=== PATIENT | female | born 1945 | race Caucasian/White ===

== ENCOUNTER 2019-09-13 15:30 | Outpatient (CLI) | payer MEDICARE, SELFPAY ==
--- NOTE | ~2019-09-13 | MM_ITS ---
EXAMINATION: MM screening gay BI w adriana HISTORY: Screening mammogram TECHNIQUE: Craniocaudal and mediolateral oblique 3-D tomosynthesis images were obtained and synthetic 2-D images were generated. CAD analysis was submitted and interpreted. COMPARISON: 05/16/2018 bilateral digital screening mammogram 05/29/2018 diagnostic right digital mammogram 05/09/2017 bilateral digital screening mammogram 05/05/2016 bilateral digital screening mammogram BREAST PARENCHYMAL COMPOSITION: The breasts are heterogeneously dense, which may obscure small masses . FINDINGS: There is no evidence of suspicious mass, calcification, or architectural distortion to sugg est malignancy in either breast. There has been no suspicious interval change. IMPRESSION: 1. No mammographic evidence of malignancy. 2. Recommend routine screening mammography in one year. BI-RADS Category 1: Negative Reviewed, dictated and finalized at location A.
== END 2019-09-13 15:31 | disposition home or self-care (01) ==
PROVIDERS: PCP Physician Assistant; Visit Provider Obstetrics & Gynecology
DX: Z12.31 Encounter for screening mammogram for malignant neoplasm of breast (principal)
CPT/HCPCS: 77063; 77067

== ENCOUNTER 2019-10-03 07:21 | Outpatient (CLI) | payer MEDICARE, SELFPAY ==
[2019-10-03 08:08] LABS: Basophils Percent Auto 0.7 % (0.2-1.2); Eosinophils Absolute Auto 0.2 K/mm3 (0-0.3); Eosinophils Percent Auto 4.8 % (0-4.4); Hematocrit 38.7 % (37.0-47.0); Hemoglobin 12.6 g/dL (12.0-15.0); Immature Granulocyte Absolute 0.04 K/mm3 (0.00-0.031); Immature Granulocyte Percent A 0.9 % (0-0.5); Lymphocytes Absolute Auto 1.05 K/mm3 (0.9-3.2); Mean Corpuscular HGB Conc 32.6 g/dl (32-36); Mean Corpuscular Hemoglobin 30.7 pg (26-34); Mean Corpuscular Volume 94.4 fl (80-100); Mean Platelet Volume 10.8 fl (7.4-10.4); Monocytes Absolute Auto 0.6 K/mm3 (0.1-0.6); Neutrophils Absolute Auto 2.7 K/mm3 (1.3-6.7); Neutrophils Percent Auto 58.6 % (45.5-73.1); Platelet Count Result 187 k/mm3 (150-375); Red Cell Distribution Width 13.4 % (11.5-14.5); White Blood Count 4.6 K/mm3 (4.5-10.0)
[2019-10-03 08:12] LABS: Add Urine Microscopic? YES; Appearance Urine Clear (Clear); Bilirubin Urine Negative (Negative); Blood Urine Negative (Negative); Color Urine Yellow (Yellow); Glucose Urine UA Negative (Negative); Ketones Urine Negative (Negative); Leukocyte Esterase Ur Trace LEU/UL (Negative); Mucus Urine Rare /lpf; Nitrate Urine Negative (Negative); Protein Urine Negative (Negative); Specific Grav Ur 1.017 (1.001-1.035); Urobilinogen Urine Negative mg/dL (<2.0)
[2019-10-03 08:23] LABS: Alanine Aminotransferase 36 U/L (4-35); Albumin Level 4.2 g/dL (3.5-5.1); Alkaline Phosphatase 120 U/L (38-126); Aspartate Amino Transferase 45 U/L (14-36); Bilirubin,Total 0.3 mg/dL (0.2-1.3); Blood Urea Nitrogen 32 mg/dL (7-17); Calcium 8.8 mg/dL (8.4-10.2); Carbon Dioxide 30 mmol/L (22-30); Chloride 104 mmol/L (98-107); Cholesterol 148 mg/dL (0-200); Estimated Glomerular Filt Rate 48; Glucose 88 mg/dL (65-105); HDL Direct 43 mg/dL; Potassium 4.2 mmol/L (3.4-5.0); Sodium 141 mmol/L (137-145); Triglycerides 103 mg/dL (<150)
[2019-10-03 08:33] LABS: LDL Cholesterol Direct 74 mg/dL
[2019-10-03 08:58] LABS: Free T4 Free Thyroxine 0.99 ng/mL (0.78-2.19)
== END 2019-10-03 07:22 | disposition home or self-care (01) ==
PROVIDERS: PCP Physician Assistant; Visit Provider Physician Assistant
DX: E03.9 Hypothyroidism, unspecified (principal); Z79.899 Other long term (current) drug therapy; Z13.220 Encounter for screening for lipoid disorders
CPT/HCPCS: 36415; 80048; 80061; 80076; 81001; 84439; 84443; 85025

== ENCOUNTER 2020-04-16 06:58 | Outpatient (CLI) | payer MEDICARE, SELFPAY ==
[2020-04-16 08:02] LABS: Anion Gap 6 mmol/L (8-16); Blood Urea Nitrogen 24 mg/dL (7-17); Calcium 9.2 mg/dL (8.4-10.2); Carbon Dioxide 31 mmol/L (22-30); Chloride 102 mmol/L (98-107); Estimated Glomerular Filt Rate 48; Glucose 90 mg/dL (65-105); Potassium 4.2 mmol/L (3.4-5.0); Sodium 139 mmol/L (137-145)
[2020-04-16 08:41] LABS: Free T4 Free Thyroxine 1.36 ng/mL (0.78-2.19)
[2020-04-16 08:55] LABS: Thyroid Stimulating Hormone Reflex 0.674 uIU/mL (0.465-4.68)
== END 2020-04-16 06:59 | disposition home or self-care (01) ==
LOC: ANHLAB 07:01
PROVIDERS: PCP Physician Assistant; Visit Provider Physician Assistant
DX: E03.9 Hypothyroidism, unspecified (principal); N18.9 Chronic kidney disease, unspecified
CPT/HCPCS: 36415; 80048; 84439; 84443

== ENCOUNTER 2020-09-17 12:27 | Outpatient (CLI) | payer MEDICARE, SELFPAY ==
--- NOTE | ~2020-09-17 | MM_ITS ---
EXAMINATION: MM screening gay BI w adriana HISTORY: Screening mammogram TECHNIQUE: Craniocaudal and mediolateral oblique 3-D tomosynthesis images were obtained and synthetic 2-D images were generated. CAD analysis was submitted and interpreted. COMPARISON: 09/2019 bilateral digital screening mammogram 05/29/2018 diagnostic right digital mammogram 05/16/2018, 05/09/2017, 05/05/2016 bilateral digital screening mammogram examinations BREAST PARENCHYMAL COMPOSITION: The breasts are heterogeneously dense, which may obscure small masses . FINDINGS: There is no evidence of suspicious mass, calcification, or architectural distortion to sugg est malignancy in either breast. There has been no suspicious interval change. IMPRESSION: 1. No mammographic evidence of malignancy. 2. Recommend routine screening mammography in one year. BI-RADS Category 1: Negative Reviewed, dictated and finalized at location A.
== END 2020-09-17 12:28 | disposition home or self-care (01) ==
LOC: ANHIMG 12:32
PROVIDERS: PCP Physician Assistant; Visit Provider Obstetrics & Gynecology
DX: Z12.31 Encounter for screening mammogram for malignant neoplasm of breast (principal)
CPT/HCPCS: 77063; 77067

== ENCOUNTER 2020-10-14 06:46 | Outpatient (CLI) | payer MEDICARE, SELFPAY ==
[2020-10-14 07:40] LABS: Basophils Absolute Auto 0.1 K/mm3 (0.0-0.1); Basophils Percent Auto 0.9 % (0.2-1.2); Eosinophils Absolute Auto 0.2 K/mm3 (0-0.3); Eosinophils Percent Auto 2.9 % (0-4.4); Hematocrit 39.2 % (37.0-47.0); Hemoglobin 12.3 g/dL (12.0-15.0); Immature Granulocyte Absolute 0.04 K/mm3 (0.00-0.031); Immature Granulocyte Percent A 0.7 % (0-0.5); Lymphocytes Absolute Auto 1.67 K/mm3 (0.9-3.2); Lymphocytes Percent Auto 29.8 % (18.3-44.2); Mean Corpuscular HGB Conc 31.4 g/dl (32-36); Mean Corpuscular Hemoglobin 29.9 pg (26-34); Mean Corpuscular Volume 95.4 fl (80-100); Mean Platelet Volume 10.6 fl (7.4-10.4); Monocytes Absolute Auto 0.7 K/mm3 (0.1-0.6); Neutrophils Percent Auto 52.7 % (45.5-73.1); Platelet Count Result 186 k/mm3 (150-375); Red Blood Count 4.11 M/mm3 (4.2-5.4); Red Cell Distribution Width 13.5 % (11.5-14.5); White Blood Count 5.6 K/mm3 (4.5-10.0)
[2020-10-14 07:49] LABS: Add Urine Microscopic? YES; Appearance Urine Clear (Clear); Bilirubin Urine Negative (Negative); Blood Urine Negative (Negative); Color Urine Yellow (Yellow); Glucose Urine UA Negative (Negative); Ketones Urine Negative (Negative); Leukocyte Esterase Ur 1+ LEU/UL (NEGATIVE); Mucus Urine Rare /lpf; Nitrate Urine Negative (Negative); Protein Urine Negative (Negative); RBC Urine 0-2 /hpf (0-2); Specific Grav Ur 1.013 (1.001-1.035); Urobilinogen Urine Negative mg/dL (<2.0); WBC Urine 0-3 /hpf (0-3)
[2020-10-14 07:54] LABS: Alanine Aminotransferase 48 U/L (4-35); Albumin Level 4.1 g/dL (3.5-5.1); Alkaline Phosphatase 142 U/L (38-126); Anion Gap 9 mmol/L (8-16); Aspartate Amino Transferase 54 U/L (14-36); Bilirubin,Total 0.4 mg/dL (0.2-1.3); Blood Urea Nitrogen 28 mg/dL (7-17); Calcium 9.8 mg/dL (8.4-10.2); Carbon Dioxide 28 mmol/L (22-30); Chloride 102 mmol/L (98-107); Cholesterol 143 mg/dL (0-200); Estimated Glomerular Filt Rate 48; Glucose 84 mg/dL (65-105); HDL Direct 44 mg/dL; Potassium 4.3 mmol/L (3.4-5.0); Sodium 139 mmol/L (137-145); Triglycerides 96 mg/dL (<150)
[2020-10-14 08:04] LABS: LDL Cholesterol Direct 60 mg/dL
[2020-10-14 08:43] LABS: Free T4 Free Thyroxine 1.14 ng/mL (0.78-2.19)
== END 2020-10-14 06:47 | disposition home or self-care (01) ==
PROVIDERS: PCP Physician Assistant; Visit Provider Physician Assistant
DX: E03.9 Hypothyroidism, unspecified (principal); N18.9 Chronic kidney disease, unspecified; Z79.899 Other long term (current) drug therapy; Z13.6 Encounter for screening for cardiovascular disorders
CPT/HCPCS: 36415; 80048; 80061; 80076; 81001; 84439; 84443; 85025

== ENCOUNTER → 2020-10-29 07:57 | Outpatient (CLI) | payer MEDICARE, SELFPAY ==
--- NOTE | ~2020-10-29 | XR_ITS ---
XR shoulder RT min 2V DATE: 10/29/2020 08:29 INDICATION: Right shoulder pain TECHNIQUE: 4 views COMPARISON: None FINDINGS: Diffuse osteopenia. There is osteoarthritic change including joint space narrowing and prominent spurring at the glenohum eral joint. Synovial osteochondromatosis. No fracture, dislocation, periosteal reaction or bone destruction. IMPRESSION: Osteopenia Prominent osteoarthritic change at the right glenohumeral joint Synovial osteochondromatosis Reviewed, dictated and finalized at location A.
--- NOTE | ~2020-10-29 | US_ITS ---
EXAMINATION: US right upper quadrant DATE: 10/29/2020 08:29 INDICATION: Elevated liver function tests TECHNIQUE: Multiple grayscale and Doppler ultrasound images of the abdomen were obtained. COMPARISON: None available FINDINGS: The head, body, and tail of the pancreas are normal. The liver is normal with normal echoge nicity and echotexture. No surface nodularity. Normal hepatopetal flow in the main portal vein. The g allbladder is normal with no abnormal wall thickening, pericholecystic fluid or stones. The normal co mmon bile duct measures 3 mm. There was no sonographic Ferrera sign. IMPRESSION: 1. Normal sonographic study of the gallbladder. Reviewed, dictated and finalized at location B.
== END ==
PROVIDERS: PCP Physician Assistant; Visit Provider Physician Assistant
DX: R94.5 Abnormal results of liver function studies (principal); M85.811 Other specified disorders of bone density and structure, right shoulder; M19.011 Primary osteoarthritis, right shoulder
CPT/HCPCS: 73030; 76705

== ENCOUNTER 2021-05-01 06:59 | Outpatient (CLI) | payer MEDICARE, SELFPAY ==
[2021-05-01 07:56] LABS: Basophils Percent Auto 0.8 % (0.2-1.2); Eosinophils Absolute Auto 0.2 K/mm3 (0-0.3); Eosinophils Percent Auto 3.6 % (0-4.4); Hematocrit 39.5 % (37.0-47.0); Hemoglobin 12.9 g/dL (12.0-15.0); Immature Granulocyte Absolute 0.05 K/mm3 (0.00-0.031); Immature Granulocyte Percent A 0.9 % (0-0.5); Lymphocytes Absolute Auto 1.45 K/mm3 (0.9-3.2); Lymphocytes Percent Auto 27.5 % (18.3-44.2); Mean Corpuscular HGB Conc 32.7 g/dl (32-36); Mean Corpuscular Hemoglobin 31.2 pg (26-34); Mean Corpuscular Volume 95.4 fl (80-100); Mean Platelet Volume 10.6 fl (7.4-10.4); Monocytes Absolute Auto 0.6 K/mm3 (0.1-0.6); Monocytes Percent Auto 11.6 % (2.6-8.5); Neutrophils Absolute Auto 2.9 K/mm3 (1.3-6.7); Neutrophils Percent Auto 55.6 % (45.5-73.1); Platelet Count Result 199 k/mm3 (150-375); Red Blood Count 4.14 M/mm3 (4.2-5.4); Red Cell Distribution Width 13.7 % (11.5-14.5); White Blood Count 5.3 K/mm3 (4.5-10.0)
[2021-05-01 08:08] LABS: Alanine Aminotransferase 51 U/L (4-35); Albumin Level 4.4 g/dL (3.5-5.1); Alkaline Phosphatase 158 U/L (38-126); Anion Gap 10 mmol/L (8-16); Aspartate Amino Transferase 60 U/L (14-36); Bilirubin,Total 0.4 mg/dL (0.2-1.3); Blood Urea Nitrogen 28 mg/dL (7-17); Calcium 9.4 mg/dL (8.4-10.2); Carbon Dioxide 26 mmol/L (22-30); Chloride 105 mmol/L (98-107); Cholesterol 149 mg/dL (0-200); Estimated Glomerular Filt Rate 48; Glucose 95 mg/dL (65-110); HDL Direct 52 mg/dL; Potassium 4.3 mmol/L (3.4-5.0); Sodium 141 mmol/L (137-145); Triglycerides 97 mg/dL (<150)
[2021-05-01 08:18] LABS: LDL Cholesterol Direct 71 mg/dL
[2021-05-01 09:01] LABS: Free T4 Free Thyroxine 0.93 ng/mL (0.78-2.19)
== END 2021-05-01 07:00 | disposition home or self-care (01) ==
LOC: ANHLAB 07:02
PROVIDERS: PCP Physician Assistant; Visit Provider Physician Assistant
DX: E03.9 Hypothyroidism, unspecified (principal); Z79.899 Other long term (current) drug therapy; E78.5 Hyperlipidemia, unspecified
CPT/HCPCS: 36415; 80053; 80061; 82248; 84439; 84443; 85025

== ENCOUNTER 2021-05-18 15:36 | Outpatient (CLI) | payer MEDICARE, SELFPAY ==
--- NOTE | ~2021-05-18 | US_ITS ---
EXAMINATION: US carotid duplex BI EXAM DATE: 05/18/2021 16:36 INDICATION: Other Specified Symptoms And Signs Involving Circ And Resp . TECHNIQUE: Grayscale, color and pulsed Doppler images of the cervical carotid arteries were obtained . The degree of vessel stenosis is placed in one of the following categories: normal, <50% stenosis, 50-69% stenosis, >=70% stenosis but less than near-occlusion, near-occlusion, or occlusion. Note that percent stenosis relative to normal distal artery lumen diameter is indirectly measured from velocit y measurements as described by Evan, et al. Radiology 2003; 229:340-346. There is no prior study fo r comparison. FINDINGS: RIGHT SIDE: Right common carotid artery peak systolic velocity (PSV in cm/s): 94 Right bulb/internal carotid artery peak systolic velocity (PSV in cm/s): 78 Right internal carotid artery end diastolic velocity (EDV in cm/s): 23 Right ICA/CCA peak systolic ratio: 0.8 Right external carotid artery peak systolic velocity (PSV in cm/s): 87 Right vertebral artery antegrade flow: yes There is no focal plaque identified. LEFT SIDE: Left common carotid artery peak systolic velocity (PSV in cm/s): 83 Left bulb/internal carotid artery peak systolic velocity (PSV in cm/s): 138 Left internal carotid artery end diastolic velocity (EDV in cm/s): 9 Left ICA/CCA peak systolic ratio: 1.7 Left external carotid artery peak systolic velocity (PSV in cm/s): 83 Left vertebral artery antegrade flow: yes There is mild carotid bulb plaque. Velocity and Doppler waveforms in the common and internal carotid arteries is normal. IMPRESSION: 1. Normal right internal carotid artery. 2. Less than 50 percent stenosis in the left internal carotid artery. Reviewed, dictated and finalized at location B. ADOPTION COORDINATOR
== END 2021-05-18 15:37 | disposition home or self-care (01) ==
LOC: ANHIMG 15:43
PROVIDERS: PCP Physician Assistant; Visit Provider Physician Assistant
DX: R09.89 Other specified symptoms and signs involving the circulatory and respiratory systems (principal); I65.22 Occlusion and stenosis of left carotid artery
CPT/HCPCS: 93880

== ENCOUNTER 2021-09-16 11:18 | Outpatient (CLI) | payer MEDICARE, SELFPAY ==
--- NOTE | ~2021-09-16 | XR_ITS ---
XR chest 2V 09/16/2021 11:40 Indication: Congestion and cough Procedure: 2 view chest Comparison: 10/27/2009 Findings: There are subtle right perihilar infiltrates. Heart size is normal. There is dextroscoliosi s of the thoracic spine. Left lung clear. No pleural effusion or pneumothorax. No acute osseous abnor mality. Impression: 1: Subtle right perihilar infiltrates may represent atelectasis or developing pneumonia. Reviewed, dictated and finalized at location B. Impression: 1: Subtle right perihilar infiltrates may represent atelectasis or developing p neumonia.
== END 2021-09-16 11:19 | disposition home or self-care (01) ==
LOC: ANHIMG 11:25
PROVIDERS: PCP Physician Assistant; Visit Provider Physician Assistant
DX: R05.1 Acute cough (principal); R91.8 Other nonspecific abnormal finding of lung field
CPT/HCPCS: 71046

== ENCOUNTER 2021-09-23 12:15 | Outpatient (CLI) | payer MEDICARE, SELFPAY ==
--- NOTE | ~2021-09-23 | MM_ITS ---
EXAMINATION: MM screening gay BI w adriana HISTORY: Screening TECHNIQUE: Craniocaudal and mediolateral oblique 3-D tomosynthesis images were obtained and synthetic 2-D images were generated. CAD analysis was submitted and interpreted. COMPARISON: Comparison to multiple prior studies sequentially, with oldest reviewed study dated 05/05. BREAST PARENCHYMAL COMPOSITION: The breasts are heterogeneously dense, which may obscure small masses . FINDINGS: There is no evidence of suspicious mass, calcification, or architectural distortion to sugg est malignancy in either breast. There has been no suspicious interval change. IMPRESSION: 1. No mammographic evidence of malignancy. 2. Recommend routine screening mammography in one year. BI-RADS Category 1: Negative Reviewed, dictated and finalized at location D.
== END 2021-09-23 12:16 | disposition home or self-care (01) ==
LOC: ANHIMG 12:18
PROVIDERS: PCP Physician Assistant; Visit Provider Obstetrics & Gynecology
DX: Z12.31 Encounter for screening mammogram for malignant neoplasm of breast (principal)
CPT/HCPCS: 77063; 77067

== ENCOUNTER 2021-10-30 06:51 | Outpatient (CLI) | payer MEDICARE, SELFPAY ==
[2021-10-30 07:32] LABS: Basophils Absolute Auto 0.1 K/mm3 (0.0-0.1); Basophils Percent Auto 0.6 % (0.2-1.2); Eosinophils Absolute Auto 0.3 K/mm3 (0-0.3); Eosinophils Percent Auto 3.9 % (0-4.4); Hematocrit 40.4 % (37.0-47.0); Hemoglobin 12.7 g/dL (12.0-15.0); Immature Granulocyte Absolute 0.06 K/mm3 (0.00-0.031); Immature Granulocyte Percent A 0.8 % (0-0.5); Lymphocytes Absolute Auto 1.12 K/mm3 (0.9-3.2); Lymphocytes Percent Auto 14.2 % (18.3-44.2); Mean Corpuscular HGB Conc 31.4 g/dl (32-36); Mean Corpuscular Hemoglobin 30.6 pg (26-34); Mean Corpuscular Volume 97.3 fl (80-100); Mean Platelet Volume 10.7 fl (7.4-10.4); Monocytes Absolute Auto 0.9 K/mm3 (0.1-0.6); Monocytes Percent Auto 11.2 % (2.6-8.5); Neutrophils Absolute Auto 5.5 K/mm3 (1.3-6.7); Neutrophils Percent Auto 69.3 % (45.5-73.1); Platelet Count Result 230 k/mm3 (150-375); Red Blood Count 4.15 M/mm3 (4.2-5.4); Red Cell Distribution Width 13.6 % (11.5-14.5); White Blood Count 7.9 K/mm3 (4.5-10.0)
[2021-10-30 07:39] LABS: Alanine Aminotransferase 30 U/L (6-35); Albumin Level 4.1 g/dL (3.5-5.1); Alkaline Phosphatase 180 U/L (38-126); Anion Gap 5 mmol/L (8-16); Aspartate Amino Transferase 41 U/L (14-36); Bilirubin,Total 0.5 mg/dL (0.2-1.3); Blood Urea Nitrogen 23 mg/dL (7-17); Calcium 8.9 mg/dL (8.4-10.2); Carbon Dioxide 29 mmol/L (22-30); Chloride 104 mmol/L (98-107); Cholesterol 121 mg/dL (0-200); Estimated Glomerular Filt Rate 48; Glucose 89 mg/dL (65-110); HDL Direct 36 mg/dL; Potassium 4.2 mmol/L (3.4-5.0); Sodium 138 mmol/L (137-145); Triglycerides 107 mg/dL (<150)
[2021-10-30 07:50] LABS: LDL Cholesterol Direct 50 mg/dL
[2021-10-30 08:32] LABS: Free T4 Free Thyroxine 1.14 ng/mL (0.78-2.19)
[2021-10-30 15:18] LABS: Appearance Urine Clear (Clear); Bilirubin Urine Negative (Negative); Blood Urine Negative (Negative); Color Urine Yellow (Yellow); Glucose Urine UA Negative (Negative); Ketones Urine Negative (Negative); Leukocyte Esterase Ur Negative LEU/UL (Negative); Nitrate Urine Negative (Negative); Protein Urine Negative (Negative); Specific Grav Ur <= 1.005 (1.001-1.035); Urobilinogen Urine 0.2 mg/dL (<2.0); pH Urine 5.5 (5.0-9.0)
[2021-10-30 15:22] LABS: Add Urine Microscopic? YES; Bacteria Urine Trace /hpf; RBC Urine 0-2 /hpf (0-2); WBC Urine 0-3 /hpf
== END 2021-10-30 06:52 | disposition home or self-care (01) ==
LOC: ANHLAB 06:57
PROVIDERS: PCP Physician Assistant; Visit Provider Physician Assistant
DX: E03.9 Hypothyroidism, unspecified (principal); E78.5 Hyperlipidemia, unspecified; R94.5 Abnormal results of liver function studies; Z79.899 Other long term (current) drug therapy
CPT/HCPCS: 36415; 80048; 80061; 80076; 81001; 84439; 84443; 85025

== ENCOUNTER 2021-11-19 12:38 | Outpatient (CLI) | payer MEDICARE, SELFPAY ==
--- NOTE | ~2021-11-19 | CT_ITS ---
EXAMINATION: CT diagnostic chest w con DATE: 11/19/2021 13:28 INDICATION: Chronic cough. Shortness of breath. TECHNIQUE: Computed tomography (CT) of the chest was performed with 75 cc Omnipaque 350 intravenous c ontrast. The dose-length product was 121.28 mGy-cm. Automated exposure control and iterative reconstr uction technique were employed. COMPARISON: Chest dated 09/16/2021 FINDINGS: There are multiple mediastinal lymph nodes which are not increased in size, likely reactive . Heart size normal. No significant pleural or pericardial effusion. There is atherosclerosis of the aorta without evidence for aneurysm or dissection. Upper abdomen is unremarkable. There is peripheral interstitial changes with interlobular septal thickening, more so on the right, possibly chronic int erstitial lung disease. No endobronchial lesions. Mildly elevated right diaphragm. Decreased right stevenson ng volume. No suspicious pulmonary nodules or masses. IMPRESSION: 1. Mild chronic peripheral interstitial lung disease, suspicious for chronic interstitial fibrosis. 2: Mediastinal lymph nodes which are not increased in size, although increased in number, likely ashok ctive. Reviewed, dictated and finalized at location A. IMPRESSION: 1. Mild chronic peripheral interstitial lung disease, suspicious for chronic in terstitial fibrosis. 2: Mediastinal lymph nodes which are not increased in size, although increased in number, likely reactive.
--- NOTE | ~2021-11-19 | MR_ITS ---
EXAMINATION: MR brain/brain stem wo/w con DATE: 11/19/2021 13:59 INDICATION: Headache. TECHNIQUE: Magnetic resonance imaging (MRI) of the brain and brainstem was performed without and with 10 mL MultiHance intravenous contrast. COMPARISON: Brain MRI 04/16/2015 FINDINGS: There is no intracranial hemorrhage, acute infarction, or abnormal intracranial mass lesion . There are scattered areas of nonspecific increased T2-weighted signal intensity in the cerebral whi te matter and daniela. The ventricles are normal in size. The paranasal sinuses are clear. There are lik bindu changes of ocular lens replacement surgeries. The mastoid air cells are normal. IMPRESSION: 1. Mild nonspecific cerebral white matter disease and pontine disease, which likely represents chroni c small vessel ischemic disease. Reviewed, dictated and finalized at location A. IMPRESSION: 1. Mild nonspecific cerebral white matter disease and pontine disease, which zach hendricks represents chronic small vessel ischemic disease.
== END 2021-11-19 12:39 | disposition home or self-care (01) ==
PROVIDERS: PCP Physician Assistant; Visit Provider Physician Assistant
DX: R05.3 Chronic cough (principal); R00.2 Palpitations; R51.9 Headache, unspecified; R93.0 Abnormal findings on diagnostic imaging of skull and head, not elsewhere classified; J84.9 Interstitial pulmonary disease, unspecified
CPT/HCPCS: 70553; 71260; A9577; Q9967

== ENCOUNTER 2021-11-21 12:30 | Outpatient (CLI) | payer MEDICARE, SELFPAY ==
--- NOTE | 2021-11-21 | ECHO_ITS ---
Patient Info Name: Mercedes Morfin Age: 76 years : 1945 Gender: Female Ht: 63 in Wt: 122 lbs BSA: 1.57 m2 HR: 70 bpm BP: 129 / 56 mmHg Heart Rhythm: Sinus Rhythm Technical Quality: Good Exam Date: 11/21/2021 1:11 PM Exam Location: [facility] Patient Status: Outpatient Admit Date: 11/21/2021 Staff Ordering Physician: SusanTania PA-C Custom Shop Worker: Macey Saab RDCS Attending Provider: RaulTania PA-C Exam Type: CA echo doppler color flow Study Info Indications - palpitations Complete two-dimensional, color flow and Doppler transthoracic echocardiogram is performed. Summary 1. Complete two-dimensional, color flow and Doppler transthoracic echocardiogram is performed. 2. Left ventricular chamber dimension is normal. 3. Left ventricular systolic function is normal, estimated at 60-65%. 4. There is no increased left ventricular wall thickness. 5. The left ventricular diastolic function is grade I diastolic dysfunction. 6. There is trace mitral valve regurgitation. 7. There is no aortic valve stenosis. 8. There is trace tricuspid valve regurgitation. 9. No pulmonary hypertension, estimated pulmonary arterial systolic pressure is 34 mmHg. Left Ventricle Left ventricular chamber dimension is normal. Left ventricular systolic function is normal, estimated at 60-65%. There is no increased left ventricular wall thickness. The left ventricular diastolic function is grade I diastolic dysfunction. Right Ventricle Right ventricular chamber dimension is normal. Right ventricular systolic function is normal. Left Atria Left atrial chamber dimension is normal. Right Atria Right atrial chamber dimension is normal. Aortic Valve The aortic valve is probable trileaflet. There is mild aortic valve sclerosis. There is no aortic valve stenosis. There is trace aortic valve regurgitation. There is mild aortic valve calcification. Pulmonic Valve The pulmonic valve is not well visualized. Mitral Valve The mitral valve has normal leaflets. There is trace mitral valve regurgitation. The mitral valve annulus is mildly calcified. Tricuspid Valve The tricuspid valve leaflets are normal. There is trace tricuspid valve regurgitation. No pulmonary hypertension, estimated pulmonary arterial systolic pressure is 34 mmHg. Pericardium/Pleural The pericardium appears normal. There is small pericardial effusion. Inferior Vena Cava Normal inferior vena cava with >50% collapse upon inspiration consistent with normal right atrial pressure, 5 mmHg. Aorta The aortic root size at the sinus of Valsalva is normal. There is mild aortic atherosclerosis. Left Ventricular Outflow Tract Name Value Normal LVOT 2D LVOT Diameter 2.0 cm LVOT Doppler LVOT Peak Gradient 4 mmHg LVOT Mean Gradient 2 mmHg LVOT VTI 21 cm LVOT VTI/AV VTI Ratio 0.8 LVOT Stroke Volume 66 ml LVOT CO 12.8 l/min
== END 2021-11-21 12:31 | disposition home or self-care (01) ==
PROVIDERS: PCP Physician Assistant; Visit Provider Physician Assistant
DX: R00.2 Palpitations (principal); R05.3 Chronic cough
CPT/HCPCS: 93306

== ENCOUNTER 2021-11-23 08:34 | Outpatient (CLI) | payer MEDICARE, SELFPAY ==
--- NOTE | ~2021-11-23 | US_ITS ---
EXAMINATION: US retroperitoneal duplex ltd DATE: 11/23/2021 10:21 CDT INDICATION: Renovascular hypertension. TECHNIQUE: Sonographic imaging of the kidneys was performed with a 3.5 MHz transducer. Retroperitone al duplex sonogram of the renal arteries also obtained. FINDINGS: No focal flow abnormalities are seen in the renal arteries on color Doppler. The peak syst olic velocity ranges of the right and left renal arteries and aorta are 123 cm per second, 148 cm per second, and 106 cm per second, respectively. The velocities and renal to aortic ratios are within no rmal limits. IMPRESSION: 1. No Doppler evidence of renal artery stenosis. Reviewed, dictated and finalized at location B.
== END 2021-11-23 08:35 | disposition home or self-care (01) ==
LOC: ANHIMG 08:38
PROVIDERS: PCP Physician Assistant; Visit Provider Internal Medicine Cardiovascular Disease
DX: I15.0 Renovascular hypertension (principal); I77.3 Arterial fibromuscular dysplasia; I70.1 Atherosclerosis of renal artery; Z95.820 Peripheral vascular angioplasty status with implants and grafts
CPT/HCPCS: 93976

== ENCOUNTER 2021-11-24 12:37 | Outpatient (CLI) | payer MEDICARE, SELFPAY ==
[2021-11-24 13:09] LABS: Alanine Aminotransferase 46 U/L (6-35); Albumin Level 4.4 g/dL (3.5-5.1); Alkaline Phosphatase 155 U/L (38-126); Aspartate Amino Transferase 66 U/L (14-36); Basophils Percent Auto 0.7 % (0.2-1.2); Bilirubin,Total 0.4 mg/dL (0.2-1.3); Eosinophils Absolute Auto 0.2 K/mm3 (0-0.3); Eosinophils Percent Auto 3.5 % (0-4.4); Hematocrit 40.4 % (37.0-47.0); Hemoglobin 12.9 g/dL (12.0-15.0); Immature Granulocyte Absolute 0.03 K/mm3 (0.00-0.031); Immature Granulocyte Percent A 0.5 % (0-0.5); Lymphocytes Absolute Auto 1.14 K/mm3 (0.9-3.2); Magnesium 2.1 mg/dL (1.6-2.3); Mean Corpuscular HGB Conc 31.9 g/dl (32-36); Mean Corpuscular Hemoglobin 30.9 pg (26-34); Mean Corpuscular Volume 96.7 fl (80-100); Mean Platelet Volume 10.6 fl (7.4-10.4); Monocytes Absolute Auto 0.8 K/mm3 (0.1-0.6); Monocytes Percent Auto 13.5 % (2.6-8.5); Neutrophils Absolute Auto 3.5 K/mm3 (1.3-6.7); Neutrophils Percent Auto 61.8 % (45.5-73.1); Platelet Count Result 221 k/mm3 (150-375); Red Blood Count 4.18 M/mm3 (4.2-5.4); Red Cell Distribution Width 13.9 % (11.5-14.5); White Blood Count 5.7 K/mm3 (4.5-10.0)
[2021-11-28 05:10] LABS: Alkaline Phosphatase 144 U/L (37-153); Macrohepatic Isoenzymes 0 % (<=0)
== END 2021-11-24 12:38 | disposition home or self-care (01) ==
LOC: ANHLAB 12:39
PROVIDERS: PCP Physician Assistant; Visit Provider Physician Assistant
DX: R74.8 Abnormal levels of other serum enzymes (principal); R79.9 Abnormal finding of blood chemistry, unspecified; R00.2 Palpitations
CPT/HCPCS: 36415; 80076; 83735; 84075; 84080; 85025

== ENCOUNTER 2021-12-31 09:07 | Outpatient (CLI) | payer MEDICARE, SELFPAY ==
--- NOTE | 2021-12-31 12:45 | WPDSIXMINUTE ---
Six Minute Walk Procedure Procedure Performed Pulmonary Stress Test (6 min walk) Six Minute Walk Six Minute Walk: This is a 6 minute walk test. The test was performed and interpreted in accordance with the 2014 ERS/ATS task force guidelines. Findings: The patient's resting room air oxygen saturation measured by pulse oximetry was 100% and heart rate was 76 bpm. Patient ambulated for 396 meters and oxygen saturation remained 95 to 100%. Heart rate at the end of the study was 98 bpm. The patient did not qualify for supplemental oxygen at rest or with ambulation. There are no prior studies for comparison.
--- NOTE | 2021-12-31 12:46 | WPDPFTINT ---
PFT Procedure Performed PFT Procedure Performed Spirometry with Pre/Post Bronchodilator Plethysmography (Lung Vol) Diffusing Cap (DLCO) Flow Vol Loop PFT Interpretation This is a pulmonary function test with pre and post-bronchodilator spirometry, plethysmography and diffusing capacity. The test was performed and results interpreted in accordance with the 2019 and 2005 ATS/ERS Task Force guidelines respectively using the Global Lung Function Initiative-2012 reference equations. Patient demonstrated good effort and cooperation. Reproducibility criteria were met. The quality of the pre bronchodilator spirometry maneuver was Grade A and post bronchodilator spirometry maneuver was Grade A. Findings: Spirometry: The contour the inspiratory and expiratory flow tracing are normal. The pre bronchodilator FVC is 2.21 L, 87% predicted. The pre bronchodilator FEV1 is 1.71 L, 88% predicted. The pre bronchodilator FEV1: FVC ratio 78%. The post bronchodilator FVC is 2.19 L, representing 1% decrease. The post bronchodilator FEV1 is 1.79 L, representing a 4% increase. The post bronchodilator FEV1: FVC ratio was 82%. Plethysmography: The total lung capacity is 3.94 L, 80% predicted. The functional residual capacity is 2.62 L, 93% predicted. The residual volume is 1.73 L, 76% predicted. Diffusion capacity: The diffusing capacity unadjusted for hemoglobin and carboxyhemoglobin is 12.3, 64% predicted. The diffusing capacity adjusted for alveolar volume is 3.55, 84% predicted. Impression: The spirometry is normal without evidence of an obstructive abnormality. There is no significant improvement after inhaling a single dose of albuterol. The diffusing capacity unadjusted for hemoglobin and carboxyhemoglobin is mildly decreased and normalizes when adjusted for alveolar volume. There are no prior studies for comparison
== END 2021-12-31 09:08 | disposition home or self-care (01) ==
PROVIDERS: PCP Physician Assistant; Visit Provider Nurse Practitioner
DX: J84.9 Interstitial pulmonary disease, unspecified (principal); R06.09 Other forms of dyspnea
CPT/HCPCS: 94060; 94618; 94726; 94729

== ENCOUNTER 2022-01-05 12:15 | Outpatient (CLI) | payer MEDICARE, SELFPAY ==
[2022-01-05 13:46] LABS: Rheumatoid Factor < 12.0 IU/ML (<12)
[2022-01-05 13:47] LABS: CRP < 0.5 mg/dL (<1.0)
[2022-01-05 14:13] LABS: Erythrocyte Sedimentation Rate 58 mm/hr (0-20)
[2022-01-07 11:42] LABS: NIL 0.05 IU/mL; Quantiferon TB Plus, 1T NEGATIVE (NEGATIVE)
[2022-01-08 04:42] LABS: Angiotensin Converting Enzyme 55.7 U/L (9-67)
[2022-01-08 11:03] LABS: Immunoglobulin G, Serum 1095 mg/dL (600-1540); Immunoglobulin G1 793 mg/dL (382-929); Immunoglobulin G2 125 mg/dL (241-700); Immunoglobulin G3 33 mg/dL (22-178)
[2022-01-09 13:11] LABS: RNP Antibodies <1.0
[2022-01-09 13:16] LABS: JO 1 Antibody <1.0; Scleroderma 70 Antibody <1.0
[2022-01-09 14:18] LABS: Legionella pneumophila Ag Ur Not Detected (Not Detected)
[2022-01-10 14:57] LABS: Blastomyces Antibody Negative (Negative)
[2022-01-12 13:59] LABS: ANCA Screen Negative (Negative)
[2022-01-13 17:43] LABS: Coccidioides Ab to F Ag (IgG) NEGATIVE; Coccidioides Ab to TP Ag (IgM) NEGATIVE
== END 2022-01-05 12:16 | disposition home or self-care (01) ==
PROVIDERS: PCP Physician Assistant; Visit Provider Nurse Practitioner
DX: J84.9 Interstitial pulmonary disease, unspecified (principal); R05.3 Chronic cough
CPT/HCPCS: 36415; 82103; 82164; 82784; 82787; 85652; 86036; 86038; 86039; 86140; 86225; 86235; 86430; 86480; 86612; 86635; 87385; 87449

== ENCOUNTER 2022-02-09 11:04 | Outpatient (CLI) | payer MEDICARE, SELFPAY ==
--- NOTE | ~2022-02-09 | CT_ITS ---
EXAMINATION: CT diagnostic chest wo con DATE: 02/09/2022 11:21 INDICATION: LOCALIZED ENLARGED LYMPH NODES TECHNIQUE: Computed tomography (CT) of the chest was performed without intravenous contrast. Addition al 3D reconstructions utilizing coronal maximum intensity projection (MIP) were performed. Automated exposure control and iterative reconstruction technique were employed. The dose-length product was 14 3.41 mGy-cm. COMPARISON: 11/19/2021 FINDINGS: No interval change in mild and lower lung predominant irregular septal line thickening with some mild honeycombing at the posterior right lower lobe most consistent with usual interstitial pneumonia (UI P) pattern chronic interstitial lung disease. No pulmonary edema, pneumonia, pleural effusion or pneu mothorax. Heart size is normal. No pericardial effusion. There is a small amount of pericardial fluid along the margins of the right pulmonary vein inflow to the right atrium. Again seen are several mil dly prominent but still normal-sized mediastinal lymph nodes which are likely reactive. There is wall thickening along the mid to distal esophagus which could be seen with esophagitis is in the setting of reflux. There is a small sliding-type hiatal hernia. Normal caliber thoracic aorta. Moderate thora cic spondylosis. Bilateral glenohumeral osteoarthritis, moderate on the left and severe on the right. IMPRESSION: 1. No significant change in a few other prominent but still normal-sized thoracic lymph nodes which a re likely reactive. 2. Unchanged mild chronic peripheral interstitial lung disease with UIP pattern. 3. Diffuse mild wall thickening in the mid to distal esophagus suggesting esophagitis potentially rel ated to reflux from the presence of a small sliding-type hiatal hernia. Reviewed, dictated and finalized at location B. IMPRESSION: 1. No significant change in a few other prominent but still normal-sized thorac ic lymph nodes which are likely reactive. 2. Unchanged mild chronic peripheral interstitial lung disease with UIP pattern . 3. Diffuse mild wall thickening in the mid to distal esophagus suggesting esoph agitis potentially related to reflux from the presence of a small sliding-type hiatal hernia.
== END 2022-02-09 11:05 | disposition home or self-care (01) ==
PROVIDERS: PCP Physician Assistant; Visit Provider Nurse Practitioner
DX: R59.0 Localized enlarged lymph nodes (principal)
CPT/HCPCS: 71250

== ENCOUNTER 2022-02-26 14:40 | Outpatient (CLI) | payer MEDICARE, SELFPAY | END 2022-02-26 14:41 | disposition home or self-care (01) | PROVIDERS: PCP Physician Assistant; Visit Provider Nurse Practitioner | DX: J84.9 Interstitial pulmonary disease, unspecified (principal) | CPT/HCPCS: 36415; 82104 ==

== ENCOUNTER 2022-04-13 08:00 | Day surgery (SDC) | payer MEDICARE, SELFPAY ==
[2022-04-07 08:54] VITALS: BMI 21.4
[2022-04-13 09:43] VITALS: BP 140/57; PULSE 78; RESP 18; TEMP 36.2; O2SAT 100
[2022-04-13] MEDS: LACTATED RINGERS 1,000 ML 150 ML IV CONT (10:00)
--- NOTE | 2022-04-13 10:16 | WPDANESEPPF ---
Anes - Initial Pre Proc Eval Procedure: Operation Date: 04/13/22 11:00 Proposed Procedures p Esophagogastroduodenoscopy - Dewey Montenegro MD Date/Time: 04/13/22 10:16 Surgeon: Dewey Montenegro MD Pre Op Diagnosis: esophagitis, chest pain, dysphagia Patient Data Age: 76 Gender: F Height: 1.6 m Weight: 54.6 kg Last Vital Signs Temp 97.2 F L 04/13/22 09:43 Pulse 78 04/13/22 09:43 Resp 18 04/13/22 09:43 BP 140/57 L 04/13/22 09:43 Pulse Ox 100 04/13/22 09:43 O2 Del Method Room Air 04/13/22 09:43 Allergies Allergy/AdvReac Type Severity Reaction Status Date / Time azithromycin Allergy Mild Unknown Verified 04/13/22 09:42 erythromycin base Allergy Mild Unknown Verified 04/13/22 09:42 Sulfa (Sulfonamide Allergy Mild Unknown Verified 04/13/22 09:42 Antibiotics) Home Medications Medication Instructions Recorded Confirmed Type amlodipine 5 mg tablet 5 mg PO DAILY 09/17/19 04/07/22 History bupropion HCl 150 mg 24 hr tablet, 150 mg PO QAM 09/17/19 04/07/22 History extended release ezetimibe 10 mg tablet 10 mg PO DAILY 03/02/22 04/07/22 History pantoprazole 40 mg tablet,delayed 40 mg PO .prn Heartburn 03/02/22 04/07/22 History release Calcium + D 1 tab-cap PO DAILY 04/07/22 04/07/22 History aspirin 81 mg capsule 81 mg PO DAILY 04/07/22 04/07/22 History cholecalciferol (vitamin D3) 25 25 mcg PO DAILY 04/07/22 04/07/22 History mcg (1,000 unit) capsule (Vitamin D3) fluoxetine 10 mg capsule 30 mg PO DAILY 04/07/22 04/07/22 History levothyroxine 75 mcg tablet 75 mcg PO DAILY 04/07/22 04/07/22 History loratadine 10 mg tablet (Claritin) 10 mg PO DAILY 04/07/22 04/07/22 History magnesium glycinate 100 mg tablet 100 mg PO DAILY 04/07/22 04/07/22 History sznxddammxde-chgsqarp-bpyqkh tablet 1 tablet PO DAILY 04/07/22 04/07/22 History nutritional supplement-fiber oral 1 ea PO DAILY 04/07/22 04/07/22 History liquid pitavastatin calcium 1 mg tablet 1 mg PO DAILY 04/07/22 04/07/22 History (Livalo) red yeast rice 600 mg capsule 1,200 mg PO DAILY 04/07/22 04/07/22 History selenium 200 mcg capsule 200 mcg PO DAILY 04/07/22 04/07/22 History vit C 250 mg-vit E 90 mg-zinc 40 2 cap PO DAILY 04/07/22 04/07/22 History mg-copper 1 co-gwtliy-ollndd capsule (PreserVision AREDS-2) vitamin B complex 1 cap PO DAILY 04/07/22 04/07/22 History Patient hx anesthesia problems: none Family hx anesthesia problems: none Results Review: All pre-operative results and documents have been reviewed as part of the pre-operative evaluation. [facility] Past Medical History Medical History (Updated 03/02/22 @ 12:07 by Shweta Hernandez APRN) Abnormal CT scan, chest Atypical chest pain Colon cancer screening Dysphagia History of stent insertion of renal artery Osteoporosis Surgical History Surgical History History of cataract extraction History of hip surgery (~01/08/19) Rt Hip Taye Arthroplasty History of tonsillectomy (~2014) Status post epidural steroid injection (~2008) L3-4-5 Family History Family History Unknown Arthritis Other Family history of arthritis Social History Social History Smoking status: Never smoker Alcohol intake: current Spiritual care concerns: No Anes - Eval Final PreProcedure Day of Procedure 04/13/22 10:16 Patient weight: normal Heart: regular rate and rhythm Lungs: clear to auscultation Airway: Mallampati scale class II Neurological: alert and oriented Last oral intake: >/= 8 hours ASA classification: III Emergent: no Anesthetic plan: proceed Anesthesia type and monitoring: general GIVS and standard monitoring Results Review: All pre-operative results and documents have been reviewed as part of the pre-operative evaluation. Informed Consent: The patient's anesthetic kulwant
--- NOTE | 2022-04-13 10:26 | PM.HPGS ---
History of Present Illness History of Present Illness Consent: Risks, benefits, and alternatives have been discussed and questions answered. Patient agrees to proceed with procedure. Chief complaint: esophagitis, chest pain, dysphagia Narrative: Mercedes Morfin is a 76 year old female Presents for EGD. Patient reports a new diagnosis this year of interstitial lung disease. Patient apparently underwent a CT scan raising the question of distal esophagitis. Patient currently denies any history of chest pain. She does report that her was somewhat worried with this about her. Patient instead suggests that she has difficulty swallowing. Sometimes food will catch in the upper mid chest. She has had symptoms of swallowing difficulties over the last 1 year. She also reports that her son had a distal esophageal stricture that was dilated and she wishes to have this performed. Food is swallow more easily if she drinks water with it. She wishes to have an EGD to evaluate her swallowing difficulties. Patient denies any significant pain. She denies any bleeding. She denies any weight loss. Patient currently maintained on pantoprazole 40mg p.o. daily. Colonoscopy performed 1 year ago was essentially stable and unremarkable. Review of Systems Review of Systems: Review of systems noncontributory. [facility] Past Medical History Medical History (Updated 03/02/22 @ 12:07 by Shweta Hrenandez, ANGIE) Abnormal CT scan, chest Atypical chest pain Colon cancer screening Dysphagia History of stent insertion of renal artery Osteoporosis Surgical History Surgical History History of cataract extraction History of hip surgery (~01/08/19) Rt Hip Taye Arthroplasty History of tonsillectomy (~2014) Status post epidural steroid injection (~2008) L3-4-5 Family History Family History Unknown Arthritis Other Family history of arthritis Social History Social History Smoking status: Never smoker Alcohol intake: current Spiritual care concerns: No Meds Home Medications and Allergies Home Medications Medication Instructions Recorded Confirmed Type amlodipine 5 mg tablet 5 mg PO DAILY 09/17/19 04/07/22 History bupropion HCl 150 mg 24 hr tablet, 150 mg PO QAM 09/17/19 04/07/22 History extended release ezetimibe 10 mg tablet 10 mg PO DAILY 03/02/22 04/07/22 History pantoprazole 40 mg tablet,delayed 40 mg PO .prn Heartburn 03/02/22 04/07/22 History release Calcium + D 1 tab-cap PO DAILY 04/07/22 04/07/22 History aspirin 81 mg capsule 81 mg PO DAILY 04/07/22 04/07/22 History cholecalciferol (vitamin D3) 25 25 mcg PO DAILY 04/07/22 04/07/22 History mcg (1,000 unit) capsule (Vitamin D3) fluoxetine 10 mg capsule 30 mg PO DAILY 04/07/22 04/07/22 History levothyroxine 75 mcg tablet 75 mcg PO DAILY 04/07/22 04/07/22 History loratadine 10 mg tablet (Claritin) 10 mg PO DAILY 04/07/22 04/07/22 History magnesium glycinate 100 mg tablet 100 mg PO DAILY 04/07/22 04/07/22 History fzlovxjzbovx-qvpihzrv-gmzzqb tablet 1 tablet PO DAILY 04/07/22 04/07/22 History nutritional supplement-fiber oral 1 ea PO DAILY 04/07/22 04/07/22 History liquid pitavastatin calcium 1 mg tablet 1 mg PO DAILY 04/07/22 04/07/22 History (Livalo) red yeast rice 600 mg capsule 1,200 mg PO DAILY 04/07/22 04/07/22 History selenium 200 mcg capsule 200 mcg PO DAILY 04/07/22 04/07/22 History vit C 250 mg-vit E 90 mg-zinc 40 2 cap PO DAILY 04/07/22 04/07/22 History mg-copper 1 qw-aizhvy-gpilck capsule (PreserVision AREDS-2) vitamin B complex 1 cap PO DAILY 04/07/22 04/07/22 History Allergies Allergy/AdvReac Type Severity Reaction Status Date / Time azithromycin Allergy Mild Unknown Verified 04/13/22 09:42 erythromycin base Allergy Mild Unknown Verified 04/13/22 09:42 Sulf
[2022-04-13 10:53] VITALS: BP 128/62; PULSE 73; RESP 20; O2SAT 100
[2022-04-13 11:03] VITALS: BP 124/61; PULSE 72; RESP 18; O2SAT 100
[2022-04-13 11:13] VITALS: BP 136/66; PULSE 70; RESP 18; O2SAT 100
== END 2022-04-13 11:20 | disposition home or self-care (01) ==
PROVIDERS: PCP Physician Assistant; Visit Provider Internal Medicine Gastroenterology
PROC: 0DJ08ZZ Inspection of Upper Intestinal Tract, Via Natural or Artificial Opening Endoscopic (ICD-10-PCS; CPT 43235; principal; 2022-04-13 11:00)
DX: R13.10 Dysphagia, unspecified (principal); R07.89 Other chest pain; M81.0 Age-related osteoporosis without current pathological fracture
CPT/HCPCS: 43450; 43235; J7120

== ENCOUNTER 2022-08-24 11:08 | Outpatient (CLI) | payer MEDICARE, SELFPAY ==
[2022-08-24 12:01] LABS: Basophils Absolute Auto 0.1 K/mm3 (0.0-0.1); Basophils Percent Auto 0.9 % (0.2-1.2); Eosinophils Absolute Auto 0.2 K/mm3 (0-0.3); Eosinophils Percent Auto 3.8 % (0-4.4); Hematocrit 41.4 % (37.0-47.0); Immature Granulocyte Absolute 0.04 K/mm3 (0.00-0.031); Immature Granulocyte Percent A 0.7 % (0-0.5); Lymphocytes Absolute Auto 1.14 K/mm3 (0.9-3.2); Lymphocytes Percent Auto 20.4 % (18.3-44.2); Mean Corpuscular HGB Conc 31.4 g/dl (32-36); Mean Corpuscular Hemoglobin 30.6 pg (26-34); Mean Corpuscular Volume 97.4 fl (80-100); Mean Platelet Volume 10.8 fl (7.4-10.4); Monocytes Absolute Auto 0.6 K/mm3 (0.1-0.6); Monocytes Percent Auto 10.2 % (2.6-8.5); Neutrophils Absolute Auto 3.6 K/mm3 (1.3-6.7); Platelet Count Result 213 k/mm3 (150-375); Red Blood Count 4.25 M/mm3 (4.2-5.4); Red Cell Distribution Width 13.6 % (11.5-14.5); White Blood Count 5.6 K/mm3 (4.5-10.0)
[2022-08-24 12:15] LABS: Alanine Aminotransferase 45 U/L (6-35); Albumin Level 4.2 g/dL (3.5-5.1); Alkaline Phosphatase 137 U/L (38-126); Anion Gap 7 mmol/L (8-16); Aspartate Amino Transferase 59 U/L (14-36); Bilirubin,Total 0.6 mg/dL (0.2-1.3); Blood Urea Nitrogen 24 mg/dL (7-17); Calcium 8.9 mg/dL (8.4-10.2); Carbon Dioxide 28 mmol/L (22-30); Chloride 106 mmol/L (98-107); Cholesterol 133 mg/dL (0-200); Estimated Glomerular Filt Rate 48; Glucose 85 mg/dL (65-110); HDL Direct 47 mg/dL; Potassium 4.4 mmol/L (3.4-5.0); Sodium 141 mmol/L (137-145); Triglycerides 106 mg/dL (<150)
[2022-08-24 12:26] LABS: LDL Cholesterol Direct 56 mg/dL
[2022-08-24 12:44] LABS: Free T4 Free Thyroxine 1.16 ng/mL (0.78-2.19)
[2022-08-24 12:46] LABS: Thyroid Stimulating Hormone 0.609 uIU/mL (0.465-4.680)
[2022-08-24 15:41] LABS: Appearance Urine Clear (Clear); Bilirubin Urine Negative (Negative); Blood Urine Negative (Negative); Color Urine Yellow (Yellow); Glucose Urine UA Negative (Negative); Ketones Urine Negative (Negative); Leukocyte Esterase Ur Negative LEU/UL (NEGATIVE); Nitrate Urine Negative (Negative); Protein Urine Negative (Negative); Specific Grav Ur 1.017 (1.001-1.035); Urobilinogen Urine 0.2 mg/dL (<2.0); pH Urine 5.5 (5.0-9.0)
[2022-08-24 15:48] LABS: Add Urine Microscopic? NO
== END 2022-08-24 11:09 | disposition home or self-care (01) ==
PROVIDERS: PCP Physician Assistant; Visit Provider Physician Assistant
DX: E03.9 Hypothyroidism, unspecified (principal); E78.5 Hyperlipidemia, unspecified; Z79.899 Other long term (current) drug therapy
CPT/HCPCS: 36415; 80048; 80061; 80076; 81003; 84439; 84443; 85025

== ENCOUNTER 2022-11-19 07:13 | Outpatient (CLI) | payer MEDICARE, SELFPAY ==
--- NOTE | ~2022-11-19 | MM_ITS ---
EXAMINATION: MM screening [facility] BI w adriana HISTORY: Screening mammogram TECHNIQUE: Craniocaudal and mediolateral oblique 3-D tomosynthesis images were obtained and synthetic 2-D images were generated. CAD analysis was submitted and interpreted. COMPARISON: 09/23/2021, 09/17/2020, 09/13/2019 BREAST PARENCHYMAL COMPOSITION: The breasts are heterogeneously dense, which may obscure small masses . FINDINGS: A stable subareolar mass of the right breast is considered benign given the lack of interva l change. No suspicious mass, calcification, or architectural distortion are identified in either singh ast to suggest malignancy. There has been no suspicious interval change. IMPRESSION: 1. No mammographic evidence of malignancy. 2. Recommend routine screening mammography in one year. BI-RADS Category 2: Benign finding(s). Reviewed, dictated and finalized at location A.
== END 2022-11-19 07:14 | disposition home or self-care (01) ==
LOC: ANHIMG 07:16
PROVIDERS: PCP Physician Assistant; Visit Provider Obstetrics & Gynecology
DX: Z12.31 Encounter for screening mammogram for malignant neoplasm of breast (principal)
CPT/HCPCS: 77063; 77067

== ENCOUNTER 2023-06-22 20:49 | Emergency (ER) | payer MEDICARE, SELFPAY ==
--- NOTE | ~2023-06-22 | XR_ITS ---
[id number] 06/22/2023 21:31 INDICATION: Right knee pain after fall PROCEDURE: 2 views right knee COMPARISON: No prior studies for comparison. FINDINGS: Fracture, dislocation or subluxation is not identified. There is osteopenia. No joint effus ion. The soft tissues appear within normal limits. No foreign bodies are identified. IMPRESSION: 1: NO ACUTE BONE OR JOINT ABNORMALITY IDENTIFIED. Reviewed, dictated and finalized at location A.
--- NOTE | ~2023-06-22 | XR_ITS ---
XR hip RT 2V w AP pelvis 06/22/2023 21:31 Indication: Right hip pain after fall Procedure: 4 views right hip Comparison: 01/05/2021 Findings: There is an acute proximal femoral fracture below the level of the cerclage wires inferior to the lesser trochanter. There is a right bipolar femoral hemiarthroplasty. Osteopenia. Moderate low er lumbar spondylosis. Pelvic rings are intact. Impression: 1: Acute right femoral subtrochanteric fracture without significant displacement. There is a pre-exis ting right bipolar femoral hemiarthroplasty present. Reviewed, dictated and finalized at location A. Impression: 1: Acute right femoral subtrochanteric fracture without significant displacemen t. There is a pre-existing right bipolar femoral hemiarthroplasty present.
[2023-06-22 20:47] VITALS: BP 169/68; PULSE 78; RESP 19; TEMP 36.6; O2SAT 100
--- NOTE | 2023-06-22 21:10 | ED.FALL ---
HPI - Fall General Chief Complaint: Fall Stated Complaint: GLF-right hip pain Time Seen by Provider: 06/22/23 21:05 Source: patient Mode of arrival: wheelchair Limitations: no limitations History of Present Illness HPI Narrative: This is a 77-year-old female who presents to the ED for chief complaint of a ground level fall this evening. Patient was walking through the dining area and accidentally bumped at the kitchen table. Reports that she then stumbled over her feet and fell down onto the right hip. Reports history of right hip replacement done 4 years ago after hip fracture. This was done in [place]. Patient states that she has pain throughout the right hip and down to the right knee area. Denies any head injury or loss of consciousness. Denies numbness, weakness. Related Data Home Medications Medication Instructions Recorded Confirmed amlodipine 5 mg tablet 5 mg PO DAILY 09/17/19 04/07/22 bupropion HCl 150 mg 24 hr tablet, 150 mg PO QAM 09/17/19 04/07/22 extended release ezetimibe 10 mg tablet 10 mg PO DAILY 03/02/22 04/07/22 pantoprazole 40 mg tablet,delayed 40 mg PO .prn Heartburn 03/02/22 04/07/22 release Calcium + D 1 tab-cap PO DAILY 04/07/22 04/07/22 aspirin 81 mg capsule 81 mg PO DAILY 04/07/22 04/07/22 cholecalciferol (vitamin D3) 25 25 mcg PO DAILY 04/07/22 04/07/22 mcg (1,000 unit) capsule (Vitamin D3) fluoxetine 10 mg capsule 30 mg PO DAILY 04/07/22 04/07/22 levothyroxine 75 mcg tablet 75 mcg PO DAILY 04/07/22 04/07/22 loratadine 10 mg tablet (Claritin) 10 mg PO DAILY 04/07/22 04/07/22 magnesium glycinate 100 mg tablet 100 mg PO DAILY 04/07/22 04/07/22 grqtuqipvtdx-uxrxozhc-wdytcb tablet 1 tablet PO DAILY 04/07/22 04/07/22 nutritional supplement-fiber oral 1 ea PO DAILY 04/07/22 04/07/22 liquid pitavastatin calcium 1 mg tablet 1 mg PO DAILY 04/07/22 04/07/22 (Livalo) red yeast rice 600 mg capsule 1,200 mg PO DAILY 04/07/22 04/07/22 selenium 200 mcg capsule 200 mcg PO DAILY 04/07/22 04/07/22 vit C 250 mg-vit E 90 mg-zinc 40 2 cap PO DAILY 04/07/22 04/07/22 mg-copper 1 fb-taweor-ukvkam capsule (PreserVision AREDS-2) vitamin B complex 1 cap PO DAILY 04/07/22 04/07/22 Allergies Allergy/AdvReac Type Severity Reaction Status Date / Time azithromycin Allergy Mild Unknown Verified 06/22/23 20:54 erythromycin base Allergy Mild Unknown Verified 06/22/23 20:54 Sulfa (Sulfonamide Allergy Mild Unknown Verified 06/22/23 20:54 Antibiotics) Review of Systems Review of Systems: All systems as dictated in [facility] [place] Past Medical History Medical History (Updated 06/22/23 @ 23:45 by Yoshi Osman PA-C) Abnormal CT scan, chest Atypical chest pain Colon cancer screening Dysphagia History of stent insertion of renal artery Osteoporosis Surgical History Surgical History History of cataract extraction History of hip surgery (~01/08/19) Rt Hip Taye Arthroplasty History of tonsillectomy (~2014) Status post epidural steroid injection (~2008) L3-4-5 Family History Family History Unknown Arthritis Other Family history of arthritis Social History Social History Smoking status: Never smoker Alcohol intake: current Spiritual care concerns: No Exam Narrative: GENERAL: Well-appearing, well-nourished, and in no acute distress. HEAD: Normocephalic, atraumatic. EYES: PERRLA and EOMI. ENT: Nares clear, no rhinorrhea or epistaxis. Mucous membranes moist. Oropharynx without tonsillar hypertrophy exudate or other lesions. NECK: Supple. No adenopathy or masses. CHEST: No respiratory distress. Clear to auscultation. No wheezes rales or rhonchi HEART: Regular rate and rhythm. No murmur heard. Normal peripheral pulses. ABDOMEN: Soft, nontender, nondistended, normal active bowel sounds. MSK: Tendern
[2023-06-22 22:33] LABS: Alanine Aminotransferase 30 U/L (6-35); Albumin Level 4.2 g/dL (3.5-5.1); Alkaline Phosphatase 157 U/L (38-126); Anion Gap 8 mmol/L (8-16); Aspartate Amino Transferase 46 U/L (14-36); Bilirubin,Total 0.7 mg/dL (0.2-1.3); Blood Urea Nitrogen 21 mg/dL (7-17); Calcium 9.4 mg/dL (8.4-10.2); Carbon Dioxide 25 mmol/L (22-30); Chloride 103 mmol/L (98-107); Estimated CRCL calculation 38 ml/min; Estimated Glomerular Filt Rate > 60; Glucose 110 mg/dL (65-110); Potassium 4.5 mmol/L (3.4-5.0); Sodium 136 mmol/L (137-145)
[2023-06-22] MEDS: ONDANSETRON INJ 4 MG/2 ML VIAL IV PUSH (23:14)
[2023-06-22] MEDS: HYDROmorphone HCL INJ (*CRX) 1 MG/ML SYR 0.5 MG IV PUSH (23:15)
[2023-06-22 23:43] VITALS: BP 169/67; PULSE 82; RESP 12; O2SAT 95
[2023-06-22 23:46] VITALS: PULSE 86; RESP 11; O2SAT 93
[2023-06-23] VITALS: PULSE 88; RESP 12; O2SAT 95
[2023-06-23 00:01] VITALS: BP 154/62; PULSE 87; RESP 11; O2SAT 96
[2023-06-23 00:15] VITALS: PULSE 86; RESP 13; O2SAT 96
[2023-06-23 00:23] LABS: Basophils Percent Auto 0.3 % (0.2-1.2); Eosinophils Absolute Auto 0.2 K/mm3 (0-0.3); Eosinophils Percent Auto 1.7 % (0-4.4); Hematocrit 41.3 % (37.0-47.0); Hemoglobin 13.4 g/dL (12.0-15.0); Immature Granulocyte Absolute 0.07 K/mm3 (0.00-0.031); Immature Granulocyte Percent A 0.6 % (0-0.5); Lymphocytes Absolute Auto 0.84 K/mm3 (0.9-3.2); Lymphocytes Percent Auto 6.9 % (18.3-44.2); Mean Corpuscular HGB Conc 32.4 g/dl (32-36); Mean Corpuscular Hemoglobin 30.6 pg (26-34); Mean Corpuscular Volume 94.3 fl (80-100); Mean Platelet Volume 11.4 fl (7.4-10.4); Monocytes Percent Auto 7.9 % (2.6-8.5); Neutrophils Absolute Auto 10.1 K/mm3 (1.3-6.7); Neutrophils Percent Auto 82.6 % (45.5-73.1); Platelet Count Result 213 k/mm3 (150-375); Red Blood Count 4.38 M/mm3 (4.2-5.4); Red Cell Distribution Width 13.8 % (11.5-14.5); White Blood Count 12.3 K/mm3 (4.5-10.0)
[2023-06-23 00:30] VITALS: PULSE 86; RESP 13; O2SAT 97
[2023-06-23 00:33] LABS: INR 0.9; Prothrombin Time 12.8 Seconds (11.1-14.7)
[2023-06-23 00:34] LABS: Partial Thromboplastin Time 31.4 Seconds (22.3-36.8)
== END 2023-06-23 00:52 | disposition short-term general hospital (02) ==
PROVIDERS: Emergency Provider Physician Assistant; PCP Physician Assistant
DX: S72.091A Other fracture of head and neck of right femur, initial encounter for closed fracture (principal); M97.01XA Periprosthetic fracture around internal prosthetic right hip joint, initial encounter; W01.0XXA Fall on same level from slipping, tripping and stumbling without subsequent striking against object, initial encounter
CPT/HCPCS: 36415; 73502; 73560; 80053; 85025; 85610; 85730; 96374; 96375; 99284; 99285; J1170; J2405

== ENCOUNTER 2023-10-21 06:59 | Outpatient (CLI) | payer MEDICARE, SELFPAY ==
[2023-10-21 07:55] LABS: Basophils Percent Auto 0.7 % (0.2-1.2); Eosinophils Absolute Auto 0.3 K/mm3 (0-0.3); Eosinophils Percent Auto 4.6 % (0-4.4); Hematocrit 41.9 % (37.0-47.0); Hemoglobin 13.1 g/dL (12.0-15.0); Immature Granulocyte Absolute 0.04 K/mm3 (0.00-0.031); Immature Granulocyte Percent A 0.7 % (0-0.5); Lymphocytes Absolute Auto 1.83 K/mm3 (0.9-3.2); Lymphocytes Percent Auto 33.4 % (18.3-44.2); Mean Corpuscular HGB Conc 31.3 g/dl (32-36); Mean Corpuscular Hemoglobin 30.8 pg (26-34); Mean Corpuscular Volume 98.6 fl (80-100); Mean Platelet Volume 10.7 fl (7.4-10.4); Monocytes Absolute Auto 0.7 K/mm3 (0.1-0.6); Neutrophils Absolute Auto 2.7 K/mm3 (1.3-6.7); Neutrophils Percent Auto 48.6 % (45.5-73.1); Platelet Count Result 223 k/mm3 (150-375); Red Blood Count 4.25 M/mm3 (4.2-5.4); Red Cell Distribution Width 13.4 % (11.5-14.5); White Blood Count 5.5 K/mm3 (4.5-10.0)
[2023-10-21 08:13] LABS: Alanine Aminotransferase 39 U/L (6-35); Albumin Level 4.3 g/dL (3.5-5.1); Alkaline Phosphatase 174 U/L (38-126); Anion Gap 9 mmol/L (4-12); Aspartate Amino Transferase 47 U/L (14-36); Bilirubin,Total 0.4 mg/dL (0.2-1.3); Blood Urea Nitrogen 30 mg/dL (7-17); Calcium 9.2 mg/dL (8.4-10.2); Carbon Dioxide 30 mmol/L (22-30); Chloride 102 mmol/L (98-107); Cholesterol 121 mg/dL (0-200); Estimated Glomerular Filt Rate 48; Glucose 84 mg/dL (65-110); HDL Direct 43 mg/dL; Potassium 4.1 mmol/L (3.4-5.0); Sodium 141 mmol/L (137-145); Triglycerides 99 mg/dL (<150)
[2023-10-21 08:24] LABS: LDL Cholesterol Direct 65 mg/dL
[2023-10-21 08:41] LABS: Thyroid Stimulating Hormone 0.695 uIU/mL (0.465-4.680)
[2023-10-21 08:55] LABS: Free T4 Free Thyroxine 1.16 ng/mL (0.78-2.19); Vitamin D 25 Hydroxy 51.8 ng/mL
[2023-10-21 09:19] LABS: Folic Acid > 20.0 ng/mL (2.76->20)
== END 2023-10-21 07:00 | disposition home or self-care (01) ==
LOC: ANHLAB 07:01
PROVIDERS: PCP Physician Assistant; Visit Provider Physician Assistant
DX: E03.9 Hypothyroidism, unspecified (principal); E78.5 Hyperlipidemia, unspecified; Z79.899 Other long term (current) drug therapy; Z87.81 Personal history of (healed) traumatic fracture
CPT/HCPCS: 36415; 80048; 80061; 80076; 82306; 82607; 82746; 84439; 84443; 85025

== ENCOUNTER 2023-11-16 11:36 | Outpatient (CLI) | payer MEDICARE, SELFPAY ==
--- NOTE | ~2023-11-16 | DEXA_ITS ---
Bone Density Report Name: EDNA BERNSTEIN Age: 78 Sex: Female Ethnicity: White Date of : 1945 Indication: postmenopausal; screening for osteoporosis; height loss; prior fracture; Referring Provider: DILIP, PORTILLO Hewitt Study: Bone densitometry was performed. Exam Date: November 16, 2023 Accession number: [id number] Bone Density: Region BMD T-score Z-score Classification AP Spine(L1, L2, L4) 0.995 -0.4 2.3 Normal Femoral Neck (Left) 0.694 -1.4 0.9 Osteopenia Total Hip (Left) 0.706 -1.9 0.1 Osteopenia World Health Organization criteria for BMD impression classify patients as: Normal (T-score at or above -1.0), Osteopenia (T-score between -1.0 and -2.5), or Osteoporosis (T-score at or below -2.5). 10-year Fracture Risk: FRAX not reported because: Prior hip or vertebral fracture Clinical Information Provided by Patient: Have had a previous hip or vertebral fracture Has had a low trauma fracture Patient maximum height was 65.5 Menopause Age: 49 No regular weight bearing exercise Drinks caffeinated beverages Onset of menses at age 11 Number of children 2 Impression: The patient has low bone mass, based on the Left Total Hip T-score. The patient has risk factors, including: previous fracture. Discussion: INCREASED RISK OF FRACTURE DUE TO HISTORY OF FRACTURE. The patient's previous fracture puts the patient at high risk of a future fracture. In untreated patients, the risk of osteoporotic fracture increases approximately two-fold for each 1.0 SD decrease in T-score. Low bone density is not the only risk factor for fracture; also consider factors such as patient's age, frailty or poor health, risk of falling, risk of injury, previous osteoporotic fracture, family history of osteoporosis, cigarette smoking, low body weight, etc. Not everyone with a low trauma fracture has osteoporosis; osteomalacia and other metabolic bone disorders should also be considered. Patients who have osteoporosis should be evaluated for specific diseases and conditions (secondary causes) that may cause or contribute to bone loss and fracture risk. National Osteoporosis Foundation (NOF) recommends pharmacologic intervention for patients with a prior hip or vertebral fracture regardless of BMD T-score. The patient should follow a healthful lifestyle (good nutrition with adequate calcium and vitamin D, and appropriate weight-bearing exercise). Follow-Up: Consider a repeat BMD and Vertebral Fracture Assessment (VFA) exam in 2 years or sooner if medically necessary, to reassess this patient's status. Reported by: Dr. Primo Paulson on 11/16/2023 12:18:00 PM. Reviewed, dictated and finalized at location AAnh CARMEN
== END 2023-11-16 11:37 | disposition home or self-care (01) ==
PROVIDERS: Absent Provider Obstetrics & Gynecology; PCP Physician Assistant; Visit Provider Internal Medicine Rheumatology
DX: Z78.0 Asymptomatic menopausal state (principal); M85.89 Other specified disorders of bone density and structure, multiple sites
CPT/HCPCS: 77080

== ENCOUNTER 2023-12-21 14:27 | Outpatient (CLI) | payer MEDICARE, SELFPAY ==
--- NOTE | ~2023-12-21 | MM_ITS ---
EXAMINATION: MM screening [facility] BI w adriana HISTORY: Screening mammogram TECHNIQUE: Craniocaudal and mediolateral oblique 3-D tomosynthesis images were obtained and synthetic 2-D images were generated. CAD analysis was submitted and interpreted. COMPARISON: 11/19/2022, 09/23/2021, 09/17/2020, 09/13/2019 BREAST PARENCHYMAL COMPOSITION:Dense: The breasts are heterogeneously dense, which may obscure small masses. FINDINGS: No suspicious mass, calcification, or architectural distortion are identified in either singh ast to suggest malignancy. There has been no suspicious interval change. IMPRESSION: No mammographic evidence of malignancy. Recommend routine screening mammography in one year. BI-RADS Category 1: Negative Reviewed, dictated and finalized at location .
== END 2023-12-21 14:28 | disposition home or self-care (01) ==
LOC: ANHIMG 14:30
PROVIDERS: PCP Physician Assistant; Visit Provider Obstetrics & Gynecology
DX: Z12.31 Encounter for screening mammogram for malignant neoplasm of breast (principal)
CPT/HCPCS: 77063; 77067

== ENCOUNTER 2024-02-23 09:41 | Outpatient (CLI) | payer MEDICARE, SELFPAY ==
--- NOTE | ~2024-02-23 | US_ITS ---
EXAMINATION: US retroperitoneal duplex ltd DATE: 02/23/2024 10:34 INDICATION: Renal vascular hypertension TECHNIQUE: Multiple grayscale, color Doppler, and pulsed Doppler images of the kidneys and renal wili lindsay were obtained. COMPARISON: None. FINDINGS: The aorta peak systolic velocity is 114 cm/s. The right renal artery peak systolic velocity is 156 cm /s in the proximal segment, 110 cm/s in the mid segment, and 72 cm/s in the distal segment. The left renal artery peak systolic velocity is 151 cm/s in the proximal segment, 84 cm/s in the mid segment, and 66 cm/s in the distal segment. IMPRESSION: 1. No Doppler evidence of renal artery stenosis. Reviewed, dictated and finalized at location B. T SALES MANAGER
== END 2024-02-23 09:42 | disposition home or self-care (01) ==
PROVIDERS: PCP Physician Assistant; Visit Provider Internal Medicine Cardiovascular Disease
DX: I15.0 Renovascular hypertension (principal)
CPT/HCPCS: 93976

== ENCOUNTER 2024-04-27 07:26 | Outpatient (CLI) | payer MEDICARE, SELFPAY ==
[2024-04-27 08:13] LABS: Alanine Aminotransferase 37 U/L (6-35); Alkaline Phosphatase 159 U/L (38-126); Anion Gap 7 mmol/L (4-12); Aspartate Amino Transferase 45 U/L (14-36); Bilirubin,Total 0.6 mg/dL (0.2-1.3); Blood Urea Nitrogen 27 mg/dL (7-17); Calcium 9.2 mg/dL (8.4-10.2); Carbon Dioxide 29 mmol/L (22-30); Chloride 104 mmol/L (98-107); Cholesterol 134 mg/dL (0-200); Estimated Glomerular Filt Rate 46; Glucose 84 mg/dL (65-110); HDL Direct 46 mg/dL; Potassium 4.4 mmol/L (3.4-5.0); Sodium 140 mmol/L (137-145); Triglycerides 86 mg/dL (<150)
[2024-04-27 08:23] LABS: LDL Cholesterol Direct 64 mg/dL
[2024-04-27 08:36] LABS: Basophils Percent Auto 0.5 % (0.2-1.2); Eosinophils Absolute Auto 0.3 K/mm3 (0-0.3); Eosinophils Percent Auto 4.4 % (0-4.4); Hematocrit 40.4 % (37.0-47.0); Hemoglobin 12.9 g/dL (12.0-15.0); Immature Granulocyte Absolute 0.04 K/mm3 (0.00-0.031); Immature Granulocyte Percent A 0.5 % (0-0.5); Lymphocytes Absolute Auto 1.19 K/mm3 (0.9-3.2); Lymphocytes Percent Auto 15.8 % (18.3-44.2); Mean Corpuscular HGB Conc 31.9 g/dl (32-36); Mean Corpuscular Volume 97.1 fl (80-100); Mean Platelet Volume 10.7 fl (7.4-10.4); Monocytes Absolute Auto 0.8 K/mm3 (0.1-0.6); Monocytes Percent Auto 10.3 % (2.6-8.5); Neutrophils Absolute Auto 5.2 K/mm3 (1.3-6.7); Neutrophils Percent Auto 68.5 % (45.5-73.1); Platelet Count Result 224 k/mm3 (150-375); Red Blood Count 4.16 M/mm3 (4.2-5.4); Red Cell Distribution Width 13.6 % (11.5-14.5); White Blood Count 7.6 K/mm3 (4.5-10.0)
[2024-04-27 10:03] LABS: Free T4 Free Thyroxine 1.15 ng/dL (0.78-2.19)
--- OUTSIDE RECORDS SUMMARY | 2024-05-03 05:05 | XMS_ITS | Encounter Summary ---
Author Organization [facility] Address [address] [place] [address] Care Team Providers Care Paper Winder Name Role Phone Patricia Vaca APRN-CLINICAL VETERINARIAN Primary Care Prov ider Unavailable Tania Moreau Primary Care Pr ovider Tania Moreau Primary Care Pr ovider Encounter Details Date Type Department Care Team (Late Contact Info) Description 02/02/2022 Telephone [facility] - Third Level [address] [place] [address], [place] [address] Primo Yanez MD [address] [place] [address] [place] [address] Social History Tobacco Use Types Packs/Day Years Used Date Smoking Tobacco: Never Assessed Sex and Gender Information Value Date Recorded Sex Assigned at Not on file Gender Identity Not on file Sexual Orientation Not on file documented as of this encounter Plan of Treatment Upcoming Encounters Date Type Department Care Team (Late Contact Info) Description 10/23/2024 11:15 AM CDT Office Visit [facility] - Orthopedic Surgery [address] [place] [id number] Braxton Wilkins MD [address] [address] 11/01/2024 11:20 AM CDT Office Visit [facility] - Rheumatology [address], [address] [place] [address] Caden Rodriguez DO [address] [place] [address] documented as of this encounter Visit Diagnoses Not on filedocumented in this encounter Additional Health Concerns Infection Onset Date Last Indicated Resolved Time COVID-19 Under Investigation 06/29/2023 06/29/2023 06/29/2023 5:02 PM CDT documented as of this encounter Care Teams Paper Winder Relationship Specialty Start Date End Date Patricia Vaca APRN-COLLEEN Update Information PCP - General 02/01/22 02/24/22 Tania Moreau PA [address] [place] [address] [place] [id number] PCP - General Physician Aquatics Manager 02/25/22 05/20/22 Tania Moreau PA [address] [place] [address] [place] [phone] PCP - General Physician Aquatics Manager 11/03/23 documented as of this encounter
--- OUTSIDE RECORDS SUMMARY | 2024-05-03 05:05 | XMS_ITS | Referral Summary ---
Author Organization [facility] [place] [address] Address [address] [place] [address] Care Team Providers Care Zipper Setter Lockstitch Name Role Phone Tania Davis Primary Care Pr ovider Allergies Active Allergy Reactions Criticality Noted Date Comments Azithromycin Nausea only,Itching Low Erythromycin Itching Low 02/08/2018 Sulfa (Sulfonamide Antibiotics) Nausea only,Itching Low Medications buPROPion XL (WELLBUTRIN XL) 150 mg 24 hr tablet Take 1 tablet (150 mg total) by mouth daily Active aspirin 81 mg tablet Take 1 tablet (81 mg total) by mouth daily Active multivitamin-mi nerals-lutein tablet Take 1 tablet by mouth daily. Active FLUOXETINE 10 mg capsule Take 3 tablet/capsule (30 mg total) by mouth daily 8 Active amLODIPine (NORVASC) 5 mg tablet 8 Active vit C,R-Dt-ikrni-stevenson tein-zeaxan [phone] qj-ssfa-ms-mg capsule Take 1 capsule by mouth daily. Active diphenhydrAMINE (BENADRYL) 25 mg capsule Take 1 tablet/capsule (25 mg total) by mouth every 6 (six) hours as needed for itching Active levothyroxine (SYNTHROID) 75 mcg tablet Take 1 tablet (75 mcg total) by mouth early childhood services coordinator before breakfast Active calcium carbonate/vitam in D3 (CALCIUM 600 + D,3, ORAL) Take by mouth Active red yeast rice 600 mg tablet Take by mouth Ac tive pitavastatin calcium (Livalo) 1 mg tablet Take 1 tablet (1 mg total) by mouth nightly 90 tablet 2 3 Active loratadine (CLARITIN) 10 mg tablet Take 1 tablet (10 mg total) by mouth daily Active selenium 200 mcg tablet Take by mouth Activ e magnesium glycinate 100 mg tablet Take by mouth Active cholecalciferol (Vitamin D3) 1,000 unit capsule Take 1 capsule (1,000 Units total) by mouth daily Active lycopene-lutein -fruit extract 5-6-150 mg capsule Take by mouth Active ezetimibe (ZETIA) 10 mg tablet TAKE 1 TABLET BY MOUTH EVERY DAY 90 tablet [address] (PROTONIX) 40 mg EC tablet Take 1 tablet (40 mg total) by mouth as needed Active Active Problems Problem Noted Date Diagnosed Date Sjogren's syndrome 12/23/2023 ILD (interstitial lung disease) ([facility] 2022 Immunizations Name Administration Dates Next Due Influenza, Unspecified 01/28/2023 Moderna SARS-CoV-2 Monovalent Vaccination (12+ Y RS) 02/15/2023 Pneumococcal Conjugate Pcv20 05/04/2023 RSV Vaccine, Pref, Recombina nt, Subunit, Adjuvanted, PF, IM (Arexvy) 03/14/2023 Social History Tobacco Use Types Packs/Day Years Used Date Smoking Tobacco: Never Smokeless Tobacco: Never Tobacco Cessation:Counseling Given: Not Answered Alcohol Use Standard Drinks/Week Comments Yes 0 (1 standard drink = 0.6 oz pur e alcohol) social drinker Personal Safety Answer Date Recorded Getting School Help Needed Not on file 06/06 Comments Unknown Sex and Gender Information Value Date Recorded Sex Assigned at Not on file Legal Sex Female 12:10 PM HAND CULTIVATOR Gender Identity Female 06/06/2023 3:22 PM HAND CULTIVATOR Sexual Orientation Not on file Last Filed Vital Signs Vital Sign Reading Time Taken Comments Blood Pressure 129/75 06/10/2023 11:40 AM HAND CULTIVATOR Pulse 74 12/23/2023 10:19 AM CDT Temperature 36.4 ??C (97.6 ??F) 12/23/2023 10:19 AM C DT Respiratory Rate 18 12/23/2023 10:19 AM CDT Oxygen Saturation 99% 12/23/2023 10:19 AM CDT Inhaled Oxygen Concentration - - Weight 50.8 kg (112 lb) 12/23/2023 10:19 AM CDT Height 161.3 cm (5' 3.5 ) 12/23/2023 10:19 AM CD T Body Mass Index 19.53 12/23/2023 10:19 AM CDT Plan of Treatment Not on file Insurance MEDIC[employer] [facility] Address: [address] [place] [address] [facility] Care Teams Zipper Setter Lockstitch Relationship Specialty Start Date End Date Tania Davis PA PCP - General Physician E Business Consultant 02/08/18
--- OUTSIDE RECORDS SUMMARY | 2024-05-03 05:05 | XMS_ITS | Patient Health Summary ---
Author Organization [facility] Address [address] [place] [address] Care Team Providers Care Digital Business Analyst Name Role Phone Tania Moreau Primary Care Pr ovid Note from [facility],non-owned Affiliates and Associated Physician Practices is amultiple site organization consisting of ambulatory clinics and hospital sitesin [place], [place], [place] and [place]. This disclosure is being madepursuant to the Care Everywhere program and may not contain all informatio navailable regarding this patient. Last updated 17.[facility] Allergies * Azithromycin(Itching,Nausea and/or Vomiting) -Low Criticality * Erythromycin(Itching) -Low Criticality * Sulfa Drugs(Itching,Other) -Low Criticality Medications * Be aware that medications may not be up to date on this document. Alwaysverify current medications with the patient. * amLODIPine (Norvasc) 10 MG tablet Take 1 (one) tablet by mouth once daily * aspirin EC (Ecotrin) 81 MG tablet Take 1 (one) tablet by mouth once daily * buPROPion XL 24hr (Wellbutrin-XL) 150 MG tablet(Started 02/11/2022) Take 1 (one) tablet by mouth every morning * ezetimibe (Zetia) 10 MG tablet(Started 01/30/2022) Take 1 (one) tablet by mouth once daily * FLUoxetine (PROzac) 10 MG capsule(Started 01/28/2022) Take 1 (one) capsule by mouth once daily * Synthroid 75 MCG tablet(Started 01/22/2022) Take 1 (one) tablet by mouth once daily * Multiple Vitamins-Minerals (PreserVision AREDS 2) capsule Take 1 (one) capsule by mouth once daily * Livalo 1 MG tablet(Started 11/13/2021) Take 1 (one) tablet by mouth once daily * Red Yeast Rice Extract 600 MG Take 1 Dose by mouth once daily * Calcium Carb-Cholecalciferol (CALCIUM 1000 + D PO) Take 1 Dose by mouth once daily * Nutritional Supplements (JUICE PLUS FIBRE PO) Take 1 Dose by mouth once daily * magnesium 250 MG tablet Take 1 (one) tablet by mouth once daily * Multiple Vitamins-Minerals (CENTRUM SILVER 50+WOMEN PO) Take 1 tablet by mouth once daily * Selenium 200 MCG Take 1 tablet by mouth once daily * pantoprazole EC (Protonix) 40 MG tablet Take 1 (one) tablet by mouth as needed for Heartburn Active Problems Problem Noted Date Diagnosed Date Age-related osteoporosis wit hout current pathological fracture 11/02/2023 Fall, initial encounter 06/23/2023 Positive DEVI (antinuclear an tibody) titer of 1-320 with few nuclear dot pattern 02/16/2022 Interstitial lung disease 02/16/2022 Scleroderma, 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 (FLUCELVAX QUADRIVALENT; 6MO+) (CCIIV4)(Given 01/18/2020) * INFLUENZA VACCINE, QUADR. (FLUZONE; FLULAVAL; FLUARIX; AFLURIA QUADRIVALENT; 6MO+), 0.5 ML (IIV4)(Given 01/20/2022, 02/02/2021, 01/08/2018) * INFLUENZA VACCINE, TRIV. (FLUZONE; FLULAVAL; FLUARIX; AFLURIA TRIVALENT; 6MO+), 0.5 ML (IIV3)(Given 12/17/2015, 01/01/2015) * MODERNA SARS-COV-2 COVID-19 VACCINE 0.25ML(Given 03/18/2021) * Pneumococcal Pcv13 Conj(Given 08/25/2016) Social History Tobacco Use Types Packs/Day Years Used Date Smoking Tobacco: Never Smokeless Tobacco: Never Tobacco Cessation:Counseling Given: Not Answered Alcohol Use Standard Drinks/Week Comments Never 0 (1 standard drink = 0.6 oz pur e alcohol) AUDIT-C Answer Date Recorded Q1: How often do you have a drink containing alcohol? Never 06/23/2023 Q2: How many drinks containi ng alcohol do you have on a typical day when you are drinking? Patient does not drink Q3: How often do you have si x or more drinks on one occasion? Never 06/23/2023 Overall Financial Resource Strain (CARDIA) Answe r Date Recorded How hard is it for you to pa y for the very basics like food, housing, medical care, and heating? Not hard at all 06/23/2023 PHQ-2 Answer Date Recorded Patient Health Questionnaire-2 Score 0 09/07/2023 [facility] - Occupational Stress Questionnaire Answer Date Recorded Do you feel stress - tense, restless, nervous, or anxious, or unable to sleep at night because your mind is troubled all the time - these days? Not at all 06/23/2023 Hunger Vital Sign Answer Date Recorded Within the past 12 months, y ou worried that your food would run out before you got the money to buy more. Never true 06/23/19 24 Within the past 12 months, t he food you bought just didn't last and you didn't have money to get more. Never true 06/23/2023 PRAPARE - Transportation Answer Date Re corded In the past 12 months, has l ack of transportation kept you from medical appointments or from getting medications? No 06/09 In the past 12 months, has l ack of transportation kept you from meetings, work, or from getting things needed for daily living? No 06/23/2023 Housing Stability Vital Sign Answer Young e Recorded In the last 12 months, was t here a time when you were not able to pay the mortgage or rent on time? No 06/23/2023 In the last 12 months, how many places have you lived? 1 06/23/2023 In the last 12 months, was t here a time when you did not have a steady place to sleep or slept in a chcf (including now)? No 06/23/2023 Sex and Gender Information Value Date Recorded Sex Assigned at Not on file Gender Identity Not on file Sexual Orientation Not on file Last Filed Vital Signs Vital Sign Reading Time Taken Comments Blood Pressure 130/60 11/02/2023 11:02 AM CDT Pulse 74 11/02/2023 11:02 AM CDT Temperature 36.7 ??C (98 ??F) 11/02/2023 11:02 AM CDT Respiratory Rate 16 11/02/2023 11:02 AM CDT Oxygen Saturation 98% 11/02/2023 11:02 AM CDT Inhaled Oxygen Concentration - - Weight 52.6 kg (116 lb) 11/02/2023 11:02 AM CDT Height 160 cm (5' 3 ) 11/02/2023 11:02 AM CDT Body Mass Index 20.55 11/02/2023 11:02 AM CDT Procedures * DEXA BONE DENSITY AXIAL SKELETON(Performed 11/16/2023) Performed for Age-related osteoporosis without current pathological fracture * XR PELVIS W RIGHT HIP 2VW(Performed 10/19/2023) Performed for Surgical follow-up care * XR PELVIS W RIGHT HIP 2VW(Performed 09/07/2023) Performed for Periprosthetic fracture of hip, subsequent encounter * XR PELVIS 1 OR 2VW(Performed 07/26/2023) Performed for Pain in right femur * CARDIAC RHYTHM STRIP ORDER(Performed 06/30/2023) * SARS-COV-2 (COVID-19) RAPID(Performed 06/29/2023) * XR PELVIS 1 OR 2VW(Performed 06/28/2023) Performed for Periprosthetic fracture around internal prosthetic right hip joint, initial encounter([facility]) * CARDIAC EKG ORDER(Performed 06/24/2023) * CBC W/O DIFFERENTIAL(Performed 06/24/2023) * BASIC METABOLIC PANEL (CALCIUM TOTAL)(Performed 06/24/2023) * XR FEMUR RIGHT 2VW(Performed 06/23/2023) Performed for Fall, initial encounter * XR PELVIS W RIGHT HIP 2VW(Performed 06/23/2023) Performed for Fall, initial encounter * COMPREHENSIVE METABOLIC PANEL(Performed 06/23/2023) * CBC W AUTO DIFFERENTIAL(Performed 06/23/2023) * EKG 12-LEAD(Performed 06/23/2023) Performed for Fall, initial encounter * MN BIOPSY OF LIP(Performed 06/18/2022) Performed for Interstitial lung disease (HCC), Positive DEVI (antinuclear antibody) titer of 1-320 with few nuclear dot pattern, Elevated erythrocyte sedimentation rate at 58 (normal CRP) * PATHOLOGY TISSUE(Performed 06/18/2022) Performed for Positive DEVI (antinuclear antibody) titer of 1-320 with few nuclear dot pattern, Elevated erythrocyte sedimentation rate at 58 (normal CRP), Swollen gland * LAB(Performed 03/01/2022) * LAB(Performed 01/05/2022) Results * DEXA BONE DENSITY AXIAL SKELETON (11/16/2023) Anatomical Region Laterality Modality Other Cadencb Rodriguez DO DEXA ORDERABLES * XR PELVIS W RIGHT HIP 2VW (10/19/2023 11:37 AM CDT) Only the most recent of3 resultswithin the time period is included. Anatomical Region Laterality Modality Pelvis Radiographic Kaylan ging 10/19/2023 11:4 5 AM CDT Impressions 10/19/2023 11:46 AM CDT IMPRESSION: Right hip arthroplasty in expected position. Moderate left hip arthritis. > Interpreting Provider: Sabiha Ni MD on 10/19/2023 11:46 AM Narrative 10/19/2023 11:46 AM CDT PROCEDURE: ??XR PELVIS W RIGHT HIP 2VW DATE/TIME OF EXAM: ??10/19/2023 11:37 AM CLINICAL INFORMATION: None relevant/not provided if blank. Indication: Z09: Encounter for follow-up examination after completed treatment for conditions other than malignant neoplasm Additional History: COMPARISON: 09/07/2023 FINDINGS: A right hip arthroplasty is seen in expected position. There is no fracture. Alignment is normal. There is mild left hip joint space narrowing. There is left femoral head osteophyte formation. There is no appreciable soft tissue abnormality. Procedure Note Sabiah Ni MD - 10/19/2023 PROCEDURE: XR PELVIS W RIGHT HIP 2VW DATE/TIME OF EXAM: 10/19/2023 11:37 AM CLINICAL INFORMATION: None relevant/not provided if blank. Indication: Z09: Encounter for follow-up examination after completed treatment for conditions other than malignant neoplasm Additional History: COMPARISON: 09/07/2023 FINDINGS: A right hip arthroplasty is seen in expected position. Thereis no fracture. Alignment is normal. There is mild left hip joint space narrowing. There is left femoral head osteophyte formation. There is no appreciable soft tissue abnormality. IMPRESSION: Right hip arthroplasty in expected position. Moderate left hip arthritis. > Interpreting Provider: Sabiha Ni MD on 10/19/2023 11:46 AM Braxton Wilkins MD DIAGNOSTIC IMAGING ORDERABLES * XR PELVIS 1 OR 2VW (07/26/2023 1:50 PM CDT) Only the most recent of2 resultswithin the time period is included. Anatomical Region Laterality Modality Pelvis Radiographic Kaylan ging 07/26/2023 1:56 PM CDT Narrative 07/26/2023 1:58 PM CDT PROCEDURE: ??XR PELVIS 1 OR 2VW DATE/TIME OF EXAM: ??07/26/2023 1:50 PM CLINICAL INFORMATION: None relevant/not provided if blank. Indication: M89.8X5: Other specified disorders of bone, thigh XR PELVIS 1 OR 2VW, AP VIEWS. HISTORY: M89.8X5: Other specified disorders of bone, thigh COMPARISON: 06/28/2023 FINDINGS/IMPRESSION: 1. No acute fracture, dislocation, suspicious intrinsic bony lesions, or suspicious soft tissue abnormalities are identified. 2. The right total hip arthroplasty changes are stable and appear uncomplicated. The femoral intramedullary stem courses through a stable fracture of proximal femoral shaft. Callus is formed and healing is in progress, but osseous bridging is not complete 3. Moderate osteoarthritis of left hip with joint space narrowing, sclerosis of the adjacent bones and minimal osteophytosis is a stable. 4. The bones are osteopenic.. > Interpreting Provider: Fede Kenney MD on 07/26/2023 1:58 PM Procedure Note Fede Kenney MD - 07/26/2023 PROCEDURE: XR PELVIS 1 OR 2VW DATE/TIME OF EXAM: 07/26/2023 1:50 PM CLINICAL INFORMATION: None relevant/not provided if blank. Indication: M89.8X5: Other specified disorders of bone, thigh XR PELVIS 1 OR 2VW, AP VIEWS. HISTORY: M89.8X5: Other specified disorders of bone, thigh COMPARISON: 06/28/2023 FINDINGS/IMPRESSION: 1. No acute fracture, dislocation, suspicious intrinsic bony lesions, or suspicious soft tissue abnormalities are identified. 2. The right total hip arthroplasty changes are stable and appear uncomplicated. The femoral intramedullary stem courses through a stable fracture of proximal femoral shaft. Callus is formed and healing is in progress, but osseous bridging is not complete 3. Moderate osteoarthritis of left hip with joint space narrowing, sclerosis of the adjacent bones and minimal osteophytosis is a stable. 4. The bones are osteopenic.. > Interpreting Provider: Fede Kenney MD on 07/26/2023 1:58 PM Braxton Wilkins MD DIAGNOSTIC IMAGING ORDERABLES * CARDIAC RHYTHM STRIP ORDER (06/30/2023 5:06 PM CDT) Narrative 06/30/2023 5:06 PM CDT Ordered by an unspecified provider. Scanned Document CARDIAC SERVICES ORD ERABLES * SARS-COV-2 (COVID-19) RAPID (06/29/2023 4:12 PM CDT) COVID-19 PCR Not detected Not detected 06/29/19 5:02 PM CDT [facility] Microbiology SPECIMEN FROM NASOPHARYNGEAL STRUCTURE / Unknown Collection / Unknown 06/29/2023 4:12 PM CDT 06/29/2023 4:26 PM CDT Narrative [facility] - 06/29/2023 5:02 PM CDT The Cepheid Xpert Xpress SARS-COV-2 has been authorized by the Food and Drug Administration (FDA) under an Emergency Use Authorization (EUA). This test has been validated in accordance with the FDA's guidance document Policy for Diagnostic Testing in Laboratories Certified to perform High Complexity Testing under CLIA prior to Emergency Use Authorization for Coronavirus Disease-2019 during the Public Health Emergency issued on June 09, 2019. FDA independent review of this validation is pending. This test is only authorized for the duration of the time the declaration that circumstances exist justifying the authorization of emergency use of in vitro diagnostic tests for detection of SARS-COV-2 virus and/or diagnosis of COVID-19 infection under 564(b) (1) of the Act. 21 U.S.C. 360bbb-3 (b) (1), unless the authorization is terminated or revoked sooner. Fact Sheets for this EUA assay are available upon request. Ac Benjamin MD LAB - MICROBIOLOGY O RDERABLES [facility] [address] [id number] * CARDIAC EKG ORDER (06/24/2023 7:56 AM CDT) Narrative 06/24/2023 7:56 AM CDT Ordered by an unspecified provider. Scanned Document CARDIAC SERVICES ORD ERABLES * (ABNORMAL) CBC W/O DIFFERENTIAL (06/24/2023 3:18 AM CDT) WBC 9.3 4.0 - 10.7 x10E9/L 06/24/2023 3:49 AM CDT [facility] RBC Count 3.81(L) 3.90 - 5.20 x10E12/L 06/24/2023 3:49 AM CDT [facility] Hemoglobin 11.5(L) 11.9 - 15.8 g/dL 06/24/2023 3:49 AM CDT [facility] Hematocrit 36.1 34.8 - 46.1 % 06/24/2023 3:49 AM CDT [facility] MCV 94.8 80.0 - 98.0 fL 06/24/2023 3:49 AM CDT [facility] MCH 30.2 26.7 - 33.6 pg 06/24/2023 3:49 AM CDT [facility] MCHC 31.9 31.7 - 36.3 g/dL 06/24/2023 3:49 AM CDT [facility] RDW-CV 13.8 11.3 - 14.8 % 06/24/2023 3:49 AM T [facility] Platelet Count 192 150 - 420 x10E9/L 06/24/2023 3:49 AM T [facility] MPV 10.4 7.8 - 11.4 fL 06/24/2023 3:49 AM T [facility] Blood BLOOD SPECIMEN / Unknown Lab Venipuncture / Unknown 06/24/2023 3:18 AM CDT 06/24/2023 3:32 AM CDT Therese Ordonez OUTPATIENT CODER-INSPECTOR [facility] - HEMATO LOGY ORDERABLES [facility] [address] [place] [address] * (ABNORMAL) BASIC METABOLIC PANEL (CALCIUM TOTAL) (06/24/2023 3:18 AM CDT) Glucose 91 70 - 105 mg/dL 06/24/2023 4:03 AM [facility] Sodium 136 136 - 145 mmol/L 06/24/2023 4:03 AM [facility] Potassium 4.2 3.5 - 5.1 mmol/L 06/24/2023 4:03 AM [facility] Chloride 105 98 - 107 mmol/L 06/24/2023 4:03 AM [facility] CO2 22 22 - 29 mmol/L 06/24/2023 4:03 AM [facility] Calcium 8.8 8.4 - 10.4 mg/dL 06/24/2023 4:03 AM [facility] Anion Gap 9 6 - 16 mmol/L 06/24/2023 4:03 AM [facility] BUN 23 7 - 26 mg/dL 06/24/2023 4:03 AM [facility] Creatinine 1.03 0.57 - 1.11 mg/dL 06/24/2023 4:03 AM [facility] eGFR by CKD-EPI 56(L) >=90 mL/min/1.7 3 m2 06/24/2023 4:03 AM [facility] Blood BLOOD SPECIMEN / Unknown Lab Venipuncture / Unknown 06/24/2023 3:18 AM CDT 06/24/2023 3:32 AM CDT Therese Ordonez OUTPATIENT CODER-INSPECTOR [facility] [facility] - CHEMIS TRY ORDERABLES [facility] [address] [place] [address] * XR FEMUR RIGHT 2VW (06/23/2023 3:29 AM CDT) Anatomical Region Laterality Modality Lower Extremity Radiographic Kaylan ging 06/23/2023 8:34 AM CDT Narrative 06/23/2023 8:34 AM CDT PROCEDURE: ??XR FEMUR RIGHT 2VW DATE/TIME OF EXAM: ??06/23/2023 3:30 AM CLINICAL INFORMATION: None relevant/not provided if blank. Indication: W19.XXXA: Unspecified fall, initial encounter Additional History: Findings/impression: There is a fracture of the proximal right femur with hip arthroplasty in place. No other fracture or dislocation is seen. The bones are osteopenic. > Interpreting Provider: Norman Davidson MD on 06/23/2023 8:34 AM Procedure Note Norman Davidson MD - 06/23/2023 PROCEDURE: XR FEMUR RIGHT 2VW DATE/TIME OF EXAM: 06/23/2023 3:30 AM CLINICAL INFORMATION: None relevant/not provided if blank. Indication: W19.XXXA: Unspecified fall, initial encounter Additional History: Findings/impression: There is a fracture of the proximal right femurwith hip arthroplasty in place. No other fracture or dislocation is seen. The bones are osteopenic. > Interpreting Provider: Norman Davidson MD on 06/23/2023 8:34 AM Alberto Palacio MD DIAGNOSTIC IMAGING O RDERABLES * (ABNORMAL) CBC W AUTO DIFFERENTIAL (06/23/2023 2:15 AM CDT) WBC 11.4(H) 4.0 - 10.7 x10E9/L 06/23/2023 2:17 AM CDT [facility] RBC Count 4.00 3.90 - 5.20 x10E12/L 06/23/2023 2:17 AM CDT [facility] Hemoglobin 12.3 11.9 - 15.8 g/dL 06/23/2023 2:17 AM CDT [facility] Hematocrit 37.9 34.8 - 46.1 % 06/23/2023 2:17 AM CDT [facility] MCV 94.8 80.0 - 98.0 fL 06/23/2023 2:17 AM CDT [facility] MCH 30.8 26.7 - 33.6 pg 06/23/2023 2:17 AM CDT [facility] MCHC 32.5 31.7 - 36.3 g/dL 06/23/2023 2:17 AM CDT [facility] RDW-CV 13.4 11.3 - 14.8 % 06/23/2023 2:17 AM CDT [facility] Platelet Count 183 150 - 420 x10E9/L 06/23/2023 2:17 AM CDT [facility] MPV 9.9 7.8 - 11.4 fL 06/23/2023 2:17 AM CDT [facility] Neutrophil % 89.0(H) 41.0 - 74.0 % 06/23/2023 2:17 AM CDT [facility] Lymphocyte % 4.0(L) 17.0 - 47.0 % 06/23/2023 2:17 AM CDT [facility] Monocyte % 5.9 3.0 - 11.0 % 06/23/2023 2:17 AM CDT [facility] Eosinophil % 0.1 0.0 - 7.0 % 06/23/2023 2:17 AM CDT [facility] Basophil % 0.2 0.0 - 1.6 % 06/23/2023 2:17 AM CDT [facility] Immature Granulocytes % 0.8 0.0 - 1.0 % 06/23/2023 2:17 AM CDT [facility] Neutrophil Absolute 10.11(H) 1.60 - 7.50 x10E9/L 06/23/2023 2:17 AM CDT [facility] Lymphocyte Absolute 0.45(L) 1.00 - 4.40 x10E9/L 06/23/2023 2:17 AM CDT [facility] Monocyte Absolute 0.67 0.15 - 1.00 x10E9/L 06/23/2023 2:17 AM CDT [facility] Eosinophil Absolute 0.01 0.00 - 0.60 x10E9/L 06/23/2023 2:17 AM CDT [facility] Basophil Absolute 0.02 0.00 - 0.13 x10E9/L 06/23/2023 2:17 AM CDT [facility] Blood BLOOD SPECIMEN / Unknown Venipuncture / Unknown 06/23/2023 2:15 AM CDT 06/23/2023 2:15 AM CDT Alberto Palacio MD LAB - HEMATOLOGY ORD ERABLES [facility] [address], [place] [id number] * (ABNORMAL) COMPREHENSIVE METABOLIC PANEL (06/23/2023 2:15 AM CDT) Glucose 121(H) 70 - 105 mg/dL 06/23/2023 2:36 AM CDT [facility] Sodium 138 136 - 145 mmol/L 06/23/2023 2:36 AM CDT [facility] Potassium 4.3 3.5 - 5.1 mmol/L 06/23/2023 2:36 AM CDT [facility] Chloride 105 98 - 107 mmol/L 06/23/2023 2:36 AM CDT [facility] CO2 24 22 - 29 mmol/L 06/23/2023 2:36 AM CDT [facility] Calcium 9.1 8.4 - 10.4 mg/dL 06/23/2023 2:36 AM CDT [facility] Anion Gap 9 6 - 16 mmol/L 06/23/2023 2:36 AM CDT [facility] BUN 16 7 - 26 mg/dL 06/23/2023 2:36 AM CDT [facility] Creatinine 0.98 0.57 - 1.11 mg/dL 06/23/2023 2:36 AM CDT [facility] Alkaline Phosphatase 133 40 - 150 U/L 06/23/2023 2:36 AM CDT [facility] ALT 25 0 - 55 U/L 06/23/2023 2:36 AM CDT [facility] AST 29 5 - 34 U/L 06/23/2023 2:36 AM CDT [facility] Protein Total 7.4 6.4 - 8.3 gm/dL 06/23/2023 2:36 AM CDT [facility] Albumin 3.5 3.4 - 5.0 gm/dL 06/23/2023 2:36 AM CDT [facility] Bilirubin Total 0.6 0.2 - 1.2 mg/dL 06/23/2023 2:36 AM CDT [facility] eGFR by CKD-EPI 59(L) >=90 mL/min/1.7 3 m2 06/23/2023 2:36 AM CDT [facility] Blood BLOOD SPECIMEN / Unknown Venipuncture / Unknown 06/23/2023 2:15 AM CDT 06/23/2023 2:15 AM CDT Alberto Palacio MD LAB - CHEMISTRY [facility] Performing Organization Address [facility] Co de Phone Number [facility] [address] [phone] * EKG 12-LEAD (06/23/2023 2:06 AM CDT) Ventricular Rate 85 BPM [facility] Atrial Rate 85 BPM [facility] P-R Interval 160 ms [facility] QRS Duration ms 62 ms [facility] Q-T Interval ms 374 ms [facility] QTC Calculation (Bezet) 445 ms [facility] Calculated P Shanks 63 degrees [facility] Calculated R Shanks 44 degrees [facility] Calculated T Shanks 67 degrees [facility] Interpretation EKG NORMAL SINUS RHYTHM NONSPECIFIC ST ABNORMALITY ABNORMAL ECG NO PREVIOUS ECGS AVAILABLE Confirmed by Roberto Pereira MD ([id number]) on 06/23/2023 8:09:53 AM [facility] 06/23/2023 2:06 AM CDT 06/23/2023 8:09 AM CDT Alberto Palacio MD ECG ORDERABLES Performing Organization Address [facility]/ZIP Co de Phone Number [facility] * [place] BIOPSY OF LIP (06/18/2022 12:42 PM ELECTRICIAN TELEPHONE) Narrative Jose Esteban MD - 06/18/2022 12:42 PM ELECTRICIAN TELEPHONE Jose Esteban MD ? 06/18/2022 ??7:30 PM Procedure: Minor Salivary Gland Biopsy Indications: Salivary gland swelling, sicca symptoms, concern for autoimmune disease Procedure in Detail: ??Informed consent was obtained. ??Lidocaine with epi was injected into the planned site of biopsy. ??An incision was made in the mucosa of the red lip and several minor salivary glands were removed for pathology. ??Hemostasis was attained with silver nitrate cautery. ??The incision was closed with interrupted 4-0 chromic. ??The patient tolerated the procedure well. Findings: Approximately 6 minor salivary glands removed and sent for permanent pathology. For all procedures, attending was present and performed the shaffer portions of the procedure. Jose Esteban MD PROCEDURE/MINOR S URGICAL ORDERABLES * PATHOLOGY TISSUE (06/18/2022 11:50 AM ELECTRICIAN TELEPHONE) Case Report Surgical Pathology Report ? Case: [id number] ? Authorizing Provider: ??Jose Esteban MD ?? Collected: ? 06/18/2022 11:50 AM ? Ordering Location: ? [facility] ? Received: ?06/21/2022 03:03 PM ? Pathologist: ? Amanda Wynn Mai, ? Specimen: ?Lip, lower lip biopsy ? 07/07/2022 9:41 AM [facility] Final Diagnosis Lower lip, biopsy (A): - Benign salivary glands, nerve and muscle - No significant increase in chronic inflammation, Focus score= 0 07/07/2022 9:41 AM [facility] Microscopic Description and Comment Sections show fragments of benign minor salivary gland, nerve and muscle. The salivary glands show two small aggregates of lymphocytes (40 lymphocytes and 23 lymphocytes). Per the Focus scoring system, these are insufficient to count as clinically significant aggregates (threshold for a significant focus is is 50 or more lymphocytes). Correlation with clinical findings is required. 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 Received in formalin, specimen A , are 6 chatterjee-brown tissues, 0.2-0.3 cm in greatest dimension and 1.3 x 0.2 x 0.2 cm in aggregate, submitted in toto in cassette A1. DF 07/07/2022 9:41 AM [facility] Addendum 1 In the absence of significant numbers of plasma cells in this biopsy, a ratio of IgG4 positive cells to IgG positive cells will not be statistically significant or clinically interpretable. 07/07/2022 9:41 AM [facility] Addendum electronically signed by Suad Bucio MD on 07/07/2022 at 9:41 AM Disclaimer The performance characteristics of all immunohistochemical and indirect immunofluorescence stains (if any) cited in this report were determined by the Histopathology Laboratory of [facility]. Some of these tests were developed by our own laboratory and have not been cleared or approved by the US Food and Drug Administration. The FDA does not require this test to go through premarket FDA review. These tests are used for clinical purposes. They should not be regarded as investigational or for research. This laboratory is certified under the Clinical Laboratory Improvement Amendments (CLIA) as qualified to perform high complexity clinical laboratory testing. This case has been personally reviewed and interpreted by the attending (teaching) pathologist. 07/07/2022 9:41 AM CDT [facility] Embedded Images 07/07/2022 9:41 AM CDT [facility] Pathology/Cytolo gy ENTIRE LIP / Unknown Collection / Unknown 06/18/2022 11:50 AM ELECTRICIAN TELEPHONE 06/21/2022 3:03 PM CDT Comment:Lower lip salivary g land biopsy Jose Esteban MD LAB - PATHOLOGY/C YTOLOGY ORDERABLES Performing Organization Address [facility] Co de Phone Number [facility] [address] [phone] * LAB (03/01/2022) Only the most recent of2 resultswithin the time period is included. Caden Rodriguez DO SCANNING ONLY Care Teams Digital Business Analyst Relationship Specialty Start Date End Date Tania Moreau PA [address] [place] [address] PCP - General Physician Service Shop Foreman 11/03/23
--- OUTSIDE RECORDS SUMMARY | 2024-05-03 05:05 | XMS_ITS | Clinical Summary ---
Author Organization [facility] [address] Address [address] [place] [address] Care Team Providers Care Skein Straightener Name Role Phone Tania Davis Primary Care [...] (NORVASC) 5 mg tablet 8 Active vit C,B-Vj-sonuy-stevenson tein-zeaxan [id number] qf-nrka-xc-mg capsule Take 1 capsule by mouth daily. Active diphenhydrAMINE (BENADRYL) 25 mg capsule Take 1 tablet/capsule (25 mg total) by mouth every 6 (six) hours as needed for itching Active levothyroxine (SYNTHROID) 75 mcg tablet Take 1 tablet (75 mcg total) by mouth customer experience consultant before breakfast Active calcium carbonate/vitam in D3 [...] Sjogren's syndrome 12/23/2023 ILD (interstitial lung disease) ([facility] 2022 Immunizations Name Administration Dates Next Due Influenza, Unspecified 01/28/2023 Moderna SARS-CoV-2 Monovalent Vaccination (12+ Y RS) 02/15/2023 Pneumococcal Conjugate Pcv20 05/04/2023 RSV Vaccine, Pref, Recombina nt, Subunit, Adjuvanted, PF, IM (Arexvy) 03/14/2023 Medical History Medical History Date Comments Hypertension Hypertension Hx Other 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 Family History Medical History Relation Name Comments Other Father 2 Unknown; Cause of : Unknown Other Mother 2 Unknown; Cause of : Unknown Relation Name Status Comments Father 1 (Age 93) Father 2 Mother 1 (Age 90) Mother 2 Social History Tobacco Use Types Packs/Day Years [...] on file Legal Sex Female 12:10 PM MUSEUM TECHNICIAN Gender Identity Female 06/06/2023 3:22 PM MUSEUM TECHNICIAN Sexual Orientation Not on file Obstetrics History Last Filed Vital Signs Vital Sign Reading Time Taken Comments Blood Pressure 129/75 06/10/2023 11:40 AM MUSEUM TECHNICIAN Pulse 74 12/23/2023 10:19 AM CDT Temperature [...] 12/23/2023 10:19 AM CDT Plan of Treatment Health Maintenance Due Date Last Done Comments Depression Screening 1945 Fall Risk Assessment 1945 Hepatitis C Screening 1945 DTaP/Tdap/Td Vaccine (1 - Tdap) 08/18/1955 Hepatitis B Screening 1962 Zoster Vaccine (1 of 2) 1994 Well Visit 65+ 2009 Covid-19 Vaccine (3 - 2023-2 5 season) 2023 02/15/2023, 03/18/2021 Influenza Vaccine (#1) 2023 , 01/20/2022, 02/02/2021, Additional history exists Osteoporosis Screening-Bone Density Scan 11/15/2025 11/16/2023, 11/16/2023 Pneumococcal vaccine 65+ Completed 05/04/2023, 08/09 Insurance MEDICARE SOLUTIONS [facility] MEDICARE [facility] MEDICARE Care Teams Skein Straightener Relationship Specialty Start Date End Date Tania Davis PA PCP - General Physician Brusher Tender 02/08/18
--- OUTSIDE RECORDS SUMMARY | 2024-05-03 05:05 | XMS_ITS ---
Author Organization [facility] santi Address [address] [place] [address] Care Team Providers Care Wastewater Treatment Operator Name Role Phone Tammy Nazario Unavailable Unav ailable REASON FOR VISIT EMR-Darrius Encounters Encounter Location Date Provider Diagnosis [facility] [address] [place] [address] 01/29/2023 zzzzProvider zzzzMigration Plan Of Treatment Medication Medication Name Sig Start Date Stop Date Notes FLUoxetine HCl 20 MG take 1.5 tablets by oral route daily Oral 1 for 30 02/21/2014 03/23/2014 Amoxicillin 500 MG take 1 capsule (500 mg) by oral route every 8 hours for 10 days Oral 3 for 10 04/02/2011 04/12/2011 Fiorinal 1 Three Times A Day, As Needed 07/11/2009 *Reorder from [facility] for eRx and Interaction Alerts* Aricept 10 MG take 1 tablet (10 mg) by oral route once daily in the evening Oral 1 for 30 03/26/2015 03/20/2016 Jhvahqrtmf-OQIP-Jtqdxi ne 50-300-40 MG 1 Three Times A Day, As Needed Oral for 30 10/04/2014 11/03/2014 Zantac 360 10 MG take 1 tablet (150 mg) by oral route 2 times per day Oral 2 for 60 03/23/2013 03/18/2014 FLUoxetine HCl 20 MG 1 Every Day Oral 10/11/2005 Biotin Maximum Strength 00472 MCG 1 Every Day Oral 10/11/2005 Aplenzin one daily for depression, Dr Wm Gonzalez 04/29/2010 *[facility]* tiZANidine HCl 4 MG take 1 capsule (4 mg) by oral route 3 times per day Oral 3 Cymtmvw-Cpzbwtjdq-Bvco 1 Two Times A Day 10/11/2005 *Pick strength-form from [facility] for eRX* Aplenzin 348 mg take 1 tablet (348 mg) by oral route once daily in the morning for 30 days Oral 1 for 30 02/08/2014 05/09/2014 Benzonatate 200 MG take 1 capsule (200 mg) by oral route 3 times per day as needed for 10 days Oral 3 for 10 01/09/2013 01/19/2013 PSEUDOFED 30MG takes OTC [facility] daily 08/27/2010 *Reorder from [facility] for eRx and Interaction Alerts* Progress Notes * AMANDEEP Mercedes TDOB:[birth year] (78 yo F)Acc No.[id number]:01/29/2023 Patient:?Mercedes MORFIN :1945???Age:77 Y???Sex:Female Address:[address] [place] [address], [facility] [address] * Refills? Stop PSEUDOFED 30MG, 1.00, takes OTC [facility] daily Stop Akjcuyelsv-DHDD-Jiblcpiy Capsule, 50-300-40 MG, Oral, 20, 1 Three Times A Day, As Needed, 30 Stop FLUoxetine HCl Tablet, 20 MG, Oral, 45, take 1.5 tablets by oral route daily, 1, 30 Stop Zantac 360 Tablet, 10 MG, Oral, 120, take 1 tablet (150 mg) by oral route 2 times per day, 2, 60 Stop Zldydhitye-SWYY-Lbdkpxli Capsule, 50-300-40 MG, Oral, 20.00, 1 Three Times A Day, As Needed, 30 Stop Dksqonsroe-MDWC-Pwwvxwgz Capsule, 50-300-40 MG, Oral, 20, 1 Three Times A Day, As Needed, 30 Stop Fiorinal, 20.00, 1 Three Times A Day, As Needed Stop Amoxicillin Capsule, 500 MG, Oral, 30, take 1 capsule (500 mg) by oral route every 8 hours for 10 days, 3, 10 Stop Aplenzin Tablet Extended Release 24 Hour, 348 mg, Oral, 30, take 1 tablet (348 mg) by oral route once daily in the morning, 1, 30 Stop Aricept Tablet, 10 MG, Oral, 30, take 1 tablet (10 mg) by oral route once daily in the evening, , 30 Stop Benzonatate Capsule, 200 MG, Oral, 30, take 1 capsule (200 mg) by oral route 3 times per day as needed for 10 days, 3, 10 Stop Aplenzin Tablet Extended Release 24 Hour, 348 mg, Oral, 30, take 1 tablet (348 mg) by oral route once daily in the morning for 30 days, , 30 Stop FLUoxetine HCl Capsule, 20 MG, Oral, 0.00, 1 Every Day Stop Biotin Maximum Strength Tablet, 92932 MCG, Oral, 0.00, 1 Every Day Stop Zantac 360 Tablet, 10 MG, Oral, 120, take 1 tablet (150 mg) by oral route 2 times per day, 2, 60 Stop FLUoxetine HCl Tablet, 20 MG, Oral, 45, take 1.5 tablets by oral route daily, , 30 Stop Myahmar-Nmddhirfx-Lsdp, 0.00, 1 Two Times A Day Stop tiZANidine HCl Capsule, 4 MG, Oral, 0, take 1 capsule (4 mg) by oral route 3 times per day, 3 Stop Aplenzin, 0.00, one daily for depression, Dr Wm Gonzalez Stop FLUoxetine HCl Tablet, 20 MG, Oral, 45, take 1.5 tablets by oral route daily, Subjective: * Chief Complaints: * ???[facility] * Medical History:? * Surgical History:? * Hospitalization/Major Diagno stic Procedure:? * Medications:? Objective: * Vitals:? * Physical Examination:? Assessment: Plan: * Treatment: * Procedure Codes:? * * Date:?
--- OUTSIDE RECORDS SUMMARY | 2024-05-03 05:05 | XMS_ITS | Referral Summary ---
Author Organization [facility] Address [address] [place] [address] Care Team Providers Care Night Order Selector Name Role Phone Tania Moreau Primary Care Pr ovider Source Comments [facility],non-owned Affiliates and Associated Physician Practices is amultiple site organization consisting of ambulatory clinics and hospital sitesin [place], [place], [place] and [place]. This disclosure is being madepursuant to the Care Everywhere program and may not contain all information available regarding this patient. Last updated 17.[facility] Allergies Active Allergy Reactions Criticality Noted Date Comments Azithromycin Itching,Nausea and/or Vomiting Low 11/2021 Erythromycin Itching Low 02/08/2018 Sulfa Drugs Itching,Other Low 02/16/2022 Medications * Be aware that medications may not be up to date on this document. Alwaysverify current medications with the patient. Medication Sig Dispensed Refills Start Date End Date Status amLODIPine (Norvasc) 10 MG tablet Take 1 (one) tablet by mouth once daily Active aspirin EC (Ecotrin) 81 MG tablet Take 1 (one) tablet by mouth once daily Active buPROPion XL 24hr (Wellbutrin-XL) 150 MG tablet Take 1 (one) tablet by mouth every morning 02/11/2022 Active ezetimibe (Zetia) 10 MG tablet Take 1 (one) tablet by mouth once daily 01/30/2022 Active FLUoxetine (PROzac) 10 MG capsule Take 1 (one) capsule by mouth once daily 01/28/2022 Active Synthroid 75 MCG tablet Take 1 (one) tablet by mouth once daily 01/22/2022 Active Multiple Vitamins-Minerals (PreserVision AREDS 2) capsule Take 1 (one) capsule by mouth once daily Active Livalo 1 MG tablet Take 1 (one) tablet by mouth once daily 11/13/2021 Active Red Yeast Rice Extract 600 MG Take 1 Dose by mouth once daily Active Calcium Carb-Cholecalciferol (CALCIUM 1000 + D PO) Take 1 Dose by mouth once daily Active Nutritional Supplements (JUICE PLUS FIBRE PO) Take 1 Dose by mouth once daily Active magnesium 250 MG tablet Take 1 (one) tablet by mouth once daily Active Multiple Vitamins-Minerals (CENTRUM SILVER 50+WOMEN PO) Take 1 tablet by mouth once daily Active Selenium 200 MCG Take 1 tablet by mouth once daily Active pantoprazole EC (Protonix) 40 MG tablet Take 1 (one) tablet by mouth as needed for Heartburn Active Active Problems Problem Noted Date Diagnosed Date Age-related osteoporosis wit hout current pathological fracture 11/02/2023 Assessment & Plan (11/02/2023 11:36 AM CDT): Has experienced now 2 hip fractures (s/p Rt ROB) with most recent 06/23/2023 proximal femoral shaft fracture and need follow up DEXA for osteoporosis concerns. Mercedes Morfin has been encouraged to take supplemental uibb-glr-wpnajkc (preferably calcium citrate) 0720-4662 mg and vitamin D3 1000 IU daily in divided dose for bone health. Fall, initial encounter 06/23/2023 Positive DEVI (antinuclear an tibody) titer of 1-320 with few nuclear dot pattern 02/16/2022 Overview (02/16/2022): Uncertain significance of positive DEVI. Prior history of hypothyroidism (autoimmune? ). Distal finger sclerodactyly skin changes (negative Scl 70 Ab). Assessment & Plan (07/02/2022 12:00 PM CDT): Additional testing had been recommended and a AVISE CTD was performed (AVISE Lupus Result: Equivocal - Index: 0.6 (positive DEVI IgG at 135 units and positive DEVI by IFA at a titer 1-640 with both discrete nuclear dots and speckled pattern, strongly positive anti Ro 52 IgG and anti Ro 60 IgG and positive rheumatoid factor IgM) with her results suggesting the possibility of primary Sjogren syndrome as a possible cause of systemic connective tissue disease associated interstitial lung disease. [facility] a Division of Otolaryngology and had a minor salivary lip gland biopsy procedure performed on 06/18/2022 with histopathology results returning findings of benign salivary glands, nerve and muscle tissue without appearance of chronic inflammation and a Focus score = 0. Interstitial lung disease 02/16/2022 Overview (07/02/2022): CT 11/19/2021 w/ reported findings of mild peripheral interstitial changes, mediastinal lymphadenopathy w/ multiple prominent lymph nodes. Additional testing had been recommended and a AVISE CTD was performed (AVISE Lupus Result: Equivocal - Index: 0.6 (positive DEVI IgG at 135 units and positive DEVI by IFA at a titer 1-640 with both discrete nuclear dots and speckled pattern, strongly positive anti Ro 52 IgG and anti Ro 60 IgG and positive rheumatoid factor IgM) with her results suggesting the possibility of primary Sjogren syndrome as a possible cause of systemic connective tissue disease associated interstitial lung disease. [facility] a Division of Otolaryngology and had a minor salivary lip gland biopsy procedure performed on 06/18/2022 with histopathology results returning findings of benign salivary glands, nerve and muscle tissue without appearance of chronic inflammation and a Focus score = 0. No granulomatous changes noted to suggest sarcoidosis. Uncertain if IgG4 staining of minor salivary lip gland tissue was performed and will try to check with [facility] pathology. Encouraged to follow up with pulmonary medicine as scheduled in August 2022. Assessment & Plan (07/02/2022 12:03 PM CDT): CT 11/19/2021 w/ reported findings of mild peripheral interstitial changes, mediastinal lymphadenopathy w/ multiple prominent lymph nodes. Additional testing had been recommended and a AVISE CTD was performed (AVISE Lupus Result: Equivocal - Index: 0.6 (positive DEVI IgG at 135 units and positive DEVI by IFA at a titer 1-640 with both discrete nuclear dots and speckled pattern, strongly positive anti Ro 52 IgG and anti Ro 60 IgG and positive rheumatoid factor IgM) with her results suggesting the possibility of primary Sjogren syndrome as a possible cause of systemic connective tissue disease associated interstitial lung disease. [facility] a Division of Otolaryngology and had a minor salivary lip gland biopsy procedure performed on 06/18/2022 with histopathology results returning findings of benign salivary glands, nerve and muscle tissue without appearance of chronic inflammation and a Focus score = 0. No granulomatous changes noted to suggest sarcoidosis. Uncertain if IgG4 staining of minor salivary lip gland tissue was performed and will try to check with [facility] pathology. Encouraged to follow up with pulmonary medicine as scheduled in August 2022. 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 No history of Raynaud's. Elevated erythrocyte sedimentation rate at 58 (n ormal CRP) 02/16/2022 Overview (02/16/2022): ESR can be influenced by several serum proteins including immunoglobulins. With normal CRP not certain represents a systemic inflammatory process. Immunizations Name Administration Dates Next Due FLU VACCINE QUAD IIV4 SPLIT 0.25 ML IM 9 FLU VACCINE TRI IIV3 SPLIT IM (FLUVIRIN) 017,01/01/2014 INFLUENZA VACCINE 02/08/2013 INFLUENZA VACCINE, CELL CULT URE, QUADR. (FLUCELVAX QUADRIVALENT; 6MO+) (CCIIV4) 01/18/2020 INFLUENZA VACCINE, QUADR. (F LUZONE; FLULAVAL; FLUARIX; AFLURIA QUADRIVALENT; 6MO+), 0.5 ML (IIV4) 01/20/2022,02/02/2021,01/08/2018 INFLUENZA VACCINE, TRIV. (FL UZONE; FLULAVAL; FLUARIX; AFLURIA TRIVALENT; 6MO+), 0.5 ML (IIV3) 12/17/2015,01/01/2015 MODERNA SARS-COV-2 COVID-19 VACCINE 0.25ML 03/18 Pneumococcal Pcv13 Conj 08/25/2016 Social History Tobacco Use Types Packs/Day Years [...] Recorded Patient Health Questionnaire-2 Score 0 09/07/2023 [facility] - Occupational Stress [...] place to sleep or slept in a fci (including now)? No 06/23/2023 Sex and Gender [...] Mass Index 20.55 11/02/2023 11:02 AM CDT Functional Status Functional Status Response Date of Assess ment Is person deaf or have serious hearing difficult y? No 06/23/2023 Is person blind or have serious difficulty seein g? No 06/23/2023 Does person have serious dif ficulty walking/climbing stairs? No 06/23/2023 Does person have difficulty dressing/bathing? No 06/23/2023 Does person have difficulty doing errands alone? No 06/23/2023 Cognitive Status Response Date of Assessm ent Does person have difficulty concentrating/remembering/making decisions? No 06/23/2023 Plan of Treatment Upcoming Encounters Date Type Department Care Team (Late st Contact Info) Description 10/23/2024 11:15 AM CDT Office Visit [facility] - Orthopedic Surgery [address] [place] [id number] Braxton Wilkins MD [address] [facility] [address] [place], [place] [id number] 11/01/2024 11:20 AM CDT Office Visit [facility] - Rheumatology [address], [address] [place] [address] Caden Rodriguez DO [address] [facility] [address] [place] [address] Procedures Procedure Name Priority Date/Time Associated Diagnosis Comments DEXA BONE DENSITY AXIAL SKELETON Routine 11/16/2023 Age-related osteoporosis without current pathological fracture from Last 3 Months or Most Recently Relevant to Health Maintenance Results * DEXA BONE DENSITY AXIAL SKELETON (11/16/2023) Anatomical Region Laterality Modality Other Caden Rodriguez DO DEXA ORDERABLES from Last 3 Months or Most Recently Relevant to Health Maintenance Advance Directives * Full Code (Latest Code Status on File) Date Activated Date Inactivated Comments 06/23/2023 9:07 AM 06/29/2023 8:41 PM Care Teams Night Order Selector Relationship Specialty Start Date End Date Tania Moreau PA [address] [place] [address] PCP - General Physician Delivery Motorcycle Driver 11/03/23
--- OUTSIDE RECORDS SUMMARY | 2024-05-03 05:05 | XMS_ITS ---
Author Organization [facility] santi Address [address] [facility] [address] [address] [place] [address] Care Team Providers Care Echo Technologist Name Role Phone zzzzMigration, zzzzProvider Unavailable Unav ailable Allergies Allergen (clinical drug ingredient) Drug/Non Drug Allergy documented on EMR Reaction Allergy Type Onset Date Status erythromycin Erythromycin Reaction: GI upset Drug Allergy 09/15/2005 Active azithromycin Zithromax Z-Harpal Reaction: itch, no hives Notes: Rash Drug Allergy 04/20/2004 Active Substance with sulfonamide structure and antibacterial mechanism of action (substance) Sulfa Antibiotics Reaction: GI upset Notes: GI upset Drug Allergy 04/20/2004 Active REASON FOR VISIT EMR-Darrius Medications Medication SIG (Take, Route, Frequency, Duration) Notes Start Date End Date Status Ocuvite Adult 50+ per eye doctor Oral 08/27/2010 Active Biotin Maximum Strength 32935 MCG 1 qd Oral Active Aspirin 81 MG 1 Every Day Oral 10/11/2005 Active Caltrate 600mg once daily in addition to other calcium *Reorder from [facility] for eRx and Interaction Alerts* 08/27/2010 Active Centrum Silver 1 Every Day Oral 10/11/2005 Active Encounters Encounter Location Date Provider Diagnosis [facility] [address] [address] [place] [address] 01/30/2023 zzzzProvider zzzzMigration Plan Of Treatment No Information Progress Notes * Mercedes MORFIN TDOB:[birth year] (78 yo F)Acc No.[id number]:01/30/2023 Patient:?Mercedes MORFIN :1945???Age:77 Y???Sex:Female Address:[address] [place] [address] [place], [address] Subjective: * Chief Complaints: * ???EMR-Darrius * Medical History:? * Belt Fixer History:?Migrated GYNHis tory?Menstrual:: Age Menarche: 12,Age Menopause: 49, .? * OB History:?Migrated OBHisto ry?:: Total Pregnancies: 3, Full Term: 2, Ab Spontaneous: 1, .? * Surgical History:?T&A: as a child; 7398-29-05Acoim ligation: laparoscopic by cautery; 2012-02-16 * Hospitalization/Major Diagno stic Procedure:? * Family History:?Migrated Fam deb History: Father Notes: at 93, cause of was advanced age , Mother Notes: at 90, cause of was abdominal aortic aneurysm , Sibling-Sister Notes: Suad, lives out of state, illnesses include: chronic headaches and depression .? * Social History:?Migrated Social History:?Migrated Social History: :: 1 Daughter :: note : healthy , :: 1 Son :: note : healthy , Exercise :: Does not exercise regularly :: note : back pain , Marital Status :: , Occupation :: Retired , Substance Use :: rare alcohol usage :: Current some day , Substance Use :: Tobacco :: Never. * Medications:?TakingOcuvite A dult 50+ Capsule per eye doctor Oral Biotin Maximum Strength 74821 MCG Tablet 1 qd Oral Aspirin 81 MG Tablet Delayed Release 1 Every Day Oral Centrum Silver Tablet 1 Every Day Oral Caltrate 600mg once daily in addition to other calcium , Notes to Pharmacist: *Reorder from [facility] for eRx and Interaction Alerts*Taking Ocuvite Adult 50+ Capsule per eye doctor Oral Taking Biotin Maximum Strength 49673 MCG Tablet 1 qd Oral Taking Aspirin 81 MG Tablet Delayed Release 1 Every Day Oral Taking Centrum Silver Tablet 1 Every Day Oral Taking Caltrate 600mg once daily in addition to other calcium , Notes to Pharmacist: *Reorder from [facility] for eRx and Interaction Alerts* * Allergies:?Erythromycin: Heidi ction: GI upset - Allergy - Onset Date 09/15/2005Zithromax Z-Harpal: Reaction: itch, no hives Notes: Rash - Allergy - Onset Date 04/20/2004Sulfa Antibiotics: Reaction: GI upset Notes: GI upset - Allergy - Onset Date 04/20/2004 Objective: * Vitals:? * Physical Examination:? Assessment: Plan: * Treatment: * Procedure Codes:? * * Date:?
--- OUTSIDE RECORDS SUMMARY | 2024-05-03 05:05 | XMS_ITS | Clinical Summary ---
Author Organization [facility] [employer] Address [address] [facility] [place] [address] Care Team Providers Care Co Founder And Cto Name Role Phone Tania Moreau Primary Care Pr ovider Source Comments [facility],non-owned Affiliates and Associated Physician Practices is amultiple site organization consisting of ambulatory clinics and hospital sitesin [place], [place], [place] and [place]. This disclosure is being madepursuant to the Care Everywhere program and may not contain all information available regarding this patient. Last updated 17.[facility] [employer] Allergies Active Allergy Reactions Criticality Noted Date [...] Morfin has been encouraged to take supplemental mzxp-piz-ubzyvcn (preferably calcium citrate) 7958-5019 mg and vitamin D3 1000 IU daily [...] performed and will try to check with [facility] pathology. Encouraged to follow up with pulmonary [...] VACCINE 0.25ML 03/18 Pneumococcal Pcv13 Conj 08/25/2016 Family History Medical History Relation Name Comments Arthritis - Rheumatoid Father Arthritis - Rheumatoid Mother Depression Sister Relation Name Status Comments Father Mother Sister Social History Tobacco Use Types Packs/Day Years [...] Recorded Patient Health Questionnaire-2 Score 0 09/07/2023 [facility] - [...] place to sleep or slept in a halfway (including now)? No 06/23/2023 Sex and Gender [...] Mass Index 20.55 11/02/2023 11:02 AM CDT Plan of Treatment Upcoming Encounters Date Type Department Care Team (Late st Contact Info) Description 10/23/2024 11:15 AM CDT Office Visit [facility] - Orthopedic Surgery [address] [place] [id number] Braxton Wilkins MD [address] [facility] [address] [place], [place] [id number] 11/01/2024 11:20 AM CDT Office Visit [facility] - Rheumatology [address], [address] [place] [address] Caden Rodriguez DO [address] [facility] [address] [place] [address] Health Maintenance Due Date Last Done Comments DTAP/TDAP/TD VACCINES (1 - Tdap) 08/18/1963 ZOSTER VACCINE (1 of 2) 1994 PNEUMOCOCCAL VACCINE 50+ (2 of 2 - PPSV23) 08/25/2017 08/25/2016 Respiratory Syncytial Virus (RSV) Vaccine Pt: or over 60 yrs (1 - 1-dose 75+ series) 08/18/2019 COVID-19 VACCINE ( - 2023- season) 2023 02/15/2023, 03/18/2021, 06/30/2020, Additional history exists INFLUENZA VACCINE (#1) 2023 , 01/20/2022, 02/02/2021, Additional history exists DEPRESSION SCREENING 04/11/2024 09/07/2023 MEDICARE AWV ? CALENDAR YEAR 2024 BONE DENSITY TESTING Completed 11/16/2023 HEPATITIS B VACCINE Aged Out No longe r eligible based on patient's age to complete this topic HIB VACCINE Aged Out No longer eligi ble based on patient's age to complete this topic HPV VACCINE Aged Out No longer eligi ble based on patient's age to complete this topic MENINGOCOCCAL (Group B) VACCINE Aged Out No longer eligible based on patient's age to complete this topic MENINGOCOCCAL VACCINE Aged Out No galo celi eligible based on patient's age to complete this topic Procedures Procedure Name Priority Date/Time Associated Diagnosis [...] 9:07 AM 06/29/2023 8:41 PM Care Teams Co Founder And Cto Relationship Specialty Start Date End Date Tania Moreau PA [address] [place] [address] PCP - General Physician Supervisor [employer] 11/03/23
--- OUTSIDE RECORDS SUMMARY | 2024-05-03 05:05 | XMS_ITS | Patient Health Record ---
Author Organization [facility] santi Address [address] [facility] [address] [place] [address] Support Name Relationship Address Phone Mercedes Morfin Guarantor Unknown [phone] Reason For Referral No Information Medications Medication SIG (Take, Route, Frequency, Duration) Notes Start Date End Date Status Ocuvite Adult 50+ per eye doctor Oral 08/27/2010 Active Biotin Maximum Strength 09457 MCG 1 qd Oral Active Aspirin 81 MG 1 Every Day Oral 10/11/2005 Active Caltrate 600mg once daily in addition to other calcium *Reorder from [facility] for eRx and Interaction Alerts* 08/27/2010 Active Centrum Silver 1 Every Day Oral 10/11/2005 Active Immunizations Vaccine Route Administration Date Status Comme nts Infuenza, trivalent, recombinant, preservative free Unknown 12/29/2009 Administered migrated [employer]= [id number] Date=02/17/1999 Vac= Influenza Infuenza, trivalent, recombinant, preservative free Unknown 02/08/2013 Administered [facility] [phone] Infuenza, trivalent, recombinant, preservative free Unknown 01/12/2014 Administered wal Infuenza, trivalent, recombinant, preservative free Unknown 01/02/2015 Administered [facility] [phone] Pneumococcal conjugate PCV 13 Unknown 01/09/2010 Administered migrated [employer]= [id number] Date=01/09/2010 Vac= pneumococcal Pneumococcal conjugate PCV 13 IM Intramuscular 03/25/2014 Administered Pneumococcal conjugate PCV 13 IM Intramuscular 03/26/2015 Administered Tdap Unknown 09/29/2006 Administered migrated [employer]= [id number] Date=09/29/2006 Vac= Tdap Problems Problem Type SNOMED Code ICD Code Onset Dates Problem Status W/U Status Risk Notes Problem Pathological fractur e of vertebra (disorder) (841915222) 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 Getting EDWARD, sees sewing machine bobbin winder for osteopenia and saw pain management Problem Major depression, single episode (97957354) Major depressive disorder, single episode, unspecified (F32.9) Active confirmed 03/23/2013 - Dr Gonzalez is moving sees Dr Gonzalez, on wellbutrin/p rozac Problem Allergic rhinitis (75740426) Allergic rhinitis, unspecified (J30.9) 2005 Active confirmed all year, Zyrte Problem Gastro-esophageal reflux disease with esophagitis (775560135) Gastro-esophag eal reflux disease with esophagitis (K21.0) 2011 Active confirmed 02/16/2012 on omeprazole, Step down to Zantac (osteopenia) Problem Low back pain (262369381) Low back pain (M54.5) 2005 Active confirmed Problem Disorder of bone (18513254) Other specified disorders of bone density and structure, unspecified site (M85.80) 2006 Active confirmed compression fracture L2-3 11/2011, took Fosamax 5-10 yrs per sewing machine bobbin winder, Off in 2009 Problem Chronic kidney disease stage 3 (disorder) (233555694) Chronic kidney disease, stage 3 (moderate) (N18.3) Active confirmed ., no renal US yet Problem SI - Stress incontinence (18723570) Stress incontinence (female) (male) (N39.3) 2005 Active confirmed urge incontinence , meds caused dry mouth, per urologist Problem Palpitations (97708228) Palpitations (R00.2) 2005 Active confirmed resolved Problem Amnesia (52510160) Other amnesia (R41.3) 2014 Active confirmed Problem Elevated levels of transaminase & lactic acid dehydrogenase (177947460) Nonspecific elevation of levels of transaminase and lactic acid dehydrogenase [LDH] (R74.0) Active confirmed ast alt 36/41 Problem Pure hypercholesterolemia (542302960) Pure hypercholester olemia, unspecified (E78.00) Active confirmed 09/15/2012 - 93/50/60 no meds red yeast rice 02/21/2012 - 187/50/72, none, Diet, etc, consider medication Plan Of Treatment No Information Insurance Providers Payer Name Payer Address Payer Phone Subscriber Number Group Number Insured Name Patient Relationship to Insured Coverage Start Date Coverage End Date DO NOT USE - [employer] [address] [address] [place], [place] [id number] Mercedes Morfin Self - patient is the insured 4 [employer] [place] [address] [place] [address] [id number] Mercedes Morfin Self - patient is the insured 2 [employer] [address] [place], [place] [id number] Mercedes Morfin Self - patient is the insured 2 Medical (General) History Surgical History Surgery Date(Month/Year) T&A: as a child; 2012-02-16 Tubal ligation: laparoscopic by cautery; 2012-02-16
--- OUTSIDE RECORDS SUMMARY | 2024-05-03 05:05 | XMS_ITS | Data Portability ---
Author Organization [facility] [place] [facility] Address [address] [place] [address] Care Team Providers Care Palletiser Operator Name Role Phone SYDNEY PALMER Primary Care Provider Unavailab le Assessment Encounter Date Assessment Date Assessment LastModified by Organization Details LastModified Time 10/05/2023 10/05/2023 Patient has history of renal artery stenosis that was stented and she is followed routinely by vascular specialist. Not available 10/16/2023 14:09:24 03/28/2024 03/28/2024 Patient has history of renal artery stenosis that was stented and she is followed routinely by vascular specialist. mammogram 12/21/23 dexa scan 11/18/23 Not available 03/28/2024 14:59:43 Plan of Treatment Reminders Order Date Submit Date Provider Last Modified By Organization Details Last Modified Time Details Appointments ANY 15 2024 01:15P M DORA Cristobal Not available Not available Not available Lab CBC w/ auto diff 2023 024 [facility], [address] [place] [address], [id number], 10/21/2023 09:51:03 hepatic function panel, serum [email or web address] [facility], [address] [place] [address], [id number], 11/18/2023 11:53:30 BMP, serum or plasma [address] [facility], [address] [place] [address], [id number], 11/23/2023 11:35:58 vitamin B12 + folate, serum or blood 2023 024 [facility], [address] [place] [address], [address], 10/21/2023 12:08:24 lipid panel, serum 2023 024 [facility], [address] [place] [address], [address], 10/21/2023 12:08:24 vitamin D, 25-hydrox y, total, serum 2023 024 [facility], [address] [place] [address], [address], 11/16/2023 12:09:34 TSH + free T4, serum [address] [facility], [address] [place] [address], [address], 11/23/2023 11:35:58 alkaline phosphata se isoenzyme s, serum or plasma 2023 024 [facility], [address] [place] [address], [address], 04/25/2024 05:12:22 CBC w/ auto diff 2023 025 [facility], [address] [place] [address], [id number], 04/23/2024 12:14:57 hepatic function panel, serum 2023 025 [facility], [address] [place] [address], [address], 04/23/2024 12:14:57 BMP, serum or plasma 2023 025 [facility], [address] [place] [address], [address], 04/23/2024 12:14:57 lipid panel, serum 2023 025 [facility], [address], [place], [address], 04/23/2024 12:14:57 vitamin D, 25-hydrox y, total, serum 2023 025 [facility], [address] [facility] [address], [place], [address], 04/23/2024 12:14:57 TSH + free T4, serum 2023 025 [facility], [address] [facility] [address], [place], [address], 04/23/2024 12:14:57 Referral None recorded. Procedures None recorded. Surgeries None recorded. Imaging US, liver - also comment on gallbladd er 2023 024 [facility] (Imaging), [address] [place] [address] [place] [address], [id number], 04/18/2024 10:41:21 Medication Orders None recorded. Patient TargetsNo targets recorded. Patient InstructionsNo instructions recorded. Reason for Referral None Reported. Results Created Date Observation Date Name Description Value Unit Range Abnormal Flag Note LastModifiedBy Organization Detail LastModifiedTime 03/26/20 24 03/26/2024 COLOG UARD cologuard result reportable NEGATI VE negati ve normal NEGAT ROSALINA TEST RESUL T. A negat rosalina Colog uard resul t indic ates a low likel ihood that a color ectal cance r (CRC) or advan paris adeno ma (vipul omato us polyp s with more advan paris pre-m align ant featu res) is prese nt. The chanc e that a perso n with a negat rosalina Colog uard test has a color ectal cance r is less than 1 in 1500 (nega tive predi ctive value >99.9 %) or has an advan paris adeno ma is less than 5.3% (nega tive predi ctive value 94.7% ). These data are based on a prosp ectiv e cross -sect ional study of 10,00 0 indiv idual s at [facility] risk for color ectal cance r who were scree alvaro with both Colog uard and colon oscop y. (Lucrecia Barnett et al, N Engl J Med 2014; 370(1 4):12 86-12 97) The alonzo l value (refe rence range ) for this assay is negat rosalina. COLOG UARD RE-SC REENI NG RECOM MENDA TION: Perio dic color ectal cance r scree blanca is an impor tant part of preve ntive healt hcare for asymp tomat ic indiv idual s at [facility] risk for color ectal cance r. Follo wing a negat rosalina Colog uard resul t, the Ameri can Cance r Socie ty and U.S. Multi -Soci ety Task Force scree blanca guide lines recom mend a Colog uard re-sc reeni ng inter hilda of 3 years . Refer ences : Ameri can Cance r Socie ty Guide line for Color ectal Cance r Scree blanca: https ://ww w.can cer.o rg/ca ncer/ colon -rect al-ca ncer/ detec tion- diagn osis- stagi ng/ac s-rec ommen datio ns.ht ml.; Jesús BRYANT, Javid walls CR, Alirio LOPEZ, Color ectal Cance r Scree blanca: Recom menda tions for Physi cians and Patie nts from the U.S. Multi -Soci ety Task Force on Color ectal Cance r Scree blanca , Mariia diaz y 2017; 112:1 016-1 030. TEST DESCR IPTIO N: [place] site algor ithmi c arely sis of stool DNA-b iomar kers with hemog lobin immun oassa y. Quant itati ve value s of indiv idual bioma rkers are not repor table and are not assoc iated with indiv idual bioma rker resul t refer ence range s. Colog uard is inten ded for color ectal cance r scree blanca of adult s of eithe r sex, 45 years or older , who are at avera ge-ri sk for color ectal cance r (CRC) . Colog uard has been appro kobe for use by the U.S. FDA. The perfo rmanc e of Colog uard was estab lishe d in a cross secti onal study of [facility] adult s aged 50-84 . Colog uard perfo rmanc e in patie nts ages 45 to 49 years was estim ated by sub-g roup arely sis of near- age group s. Colon oscop ies perfo rmed for a posit rosalina resul t may find as the most clini good signi fican t lesio n: color ectal cance r [4.0% ], advan paris adeno ma (incl uding sessi le joshua howie polyp s great er than or equal to 1cm diame ter) [20%] or non- advan paris adeno ma [31%] ; or no color ectal neopl juan antonio [45%] . These estim ates are deriv ed from a prosp ectiv e cross -sect ional scree blanca study of 0 indiv idual s at [facility] for color ectal cance r who were scree alvaro with both Colog uard and colon oscop y. (Lucrecia Liu. et al, N Engl J Med 2014; 370(1 4):12 86-12 97.) Colog uard may produ ce a false negat rosalina or false posit rosalina resul t (no color ectal cance r or preca ncero us polyp prese nt at colon oscop y follo w up). A negat rosalina Colog uard test resul t does not guara ntee the absen ce of CRC or advan paris adeno ma (pre- cance r). The curre nt Colog uard scree blanca inter hilda is every 3 years . (Amer ican Cance r Socie ty and U.S. Multi -Soci ety Task Force ). Colog uard perfo rmanc e data in a 0 patie nt pivot al study using colon oscop y as the refer ence metho d can be acces sed at the follo wing locat ion: www.e xactl abs.c om/re sults . Addit ional descr iptio n of the Colog uard test proce ss, warni ngs and preca ution s can be found at www.pravin vo.pravin om. Not Available [employer] (Cologuard Orders Only) [address], [place], [address], 03/30/2024 21:21:26 11/18/19 24 11/16/2023 DEXA No observ ation record ed. [address]) [address] [facility], [place], [address], 11/18/2023 17:58:20 11/22/19 24 11/18/2023 DEXA No observ ation record ed. [address] [facility] [address], [place], [address], 04/10/2024 15:26:45 12/22/19 24 12/21/2023 MAMMO , scree blanca, digit al, bilat eral No observ ation record ed. [address] [facility], [place], [address], 04/10/2024 15:26:41 02/23/20 24 02/23/2024 US, duple x, renal arter y No observ ation record ed. [address] [place] [address], [address], 04/10/2024 15:26:39 04/19/19 25 11/19/2022 MAMMO , scree blanca, digit al, bilat eral No observ ation record ed. BARCODE Not Available 2024 19:59:40 Result Notes None recorded. Problems Name Problem SNOMED Code Status Onset Date Resolution Date Notes Provider Name and Address Organization Details Recorded Time Hypertensive disorder 69441595 Active 2023 Concepción Aguilera [facility], [place] - [facility] 10:22:26 Hypothyroidism 16467574 Active 2023 Concepción Aguilera null, [place] - [facility] 4 10:22:33 Gastroesophage al reflux disease 554037062 Active 2023 Concepción Aguil[place] [facility] 4 10:22:37 Hyperlipidemia 92547723 Active 2023 DORA Cristobal Attn: Marcella alvarado,[address] [place], [address], [place] [facility] 4 15:44:30 Body mass index 20-24 - normal 472514516 Active 2023 DORA Cristobal Attn: Marcella alvarado,[address] [place], [address], [place] [facility] 4 14:09:01 History of hip fracture 954224471 Active 2023 DORA Cristobal Attn: Marcella alvarado,[address] [place], [address], [place] [facility] 4 14:09:02 Long-term drug therapy Active 2023 DORA Cristobal Attn: Marcella alvarado,[address] [place], [address], [place] [facility] 4 14:09:03 Gastroesophage al reflux disease without esophagitis 257255225 Active 2023 DORA Cristobal Attn: Marcella alvarado,[address] [place], [address], [place] [facility] 4 14:09:04 Benign essential hypertension 0072107 Active 2023 DORA Cristobal Attn: Marcella g,[address] [place], [address], [place] [facility] 4 14:09:06 Depressive disorder 41433012 Active 2023 DORA Cristobal Attn: Marcella alvarado,[address] [place], [address], [place] [facility] 14:11:43 Body mass index less than 20 205624957 Active 2023 DORA Cristobal Attn: Marcella alvarado,[address], [place], [address], [facility] - SI 15:40:20 Problem Notes None recorded. Procedures Surgical History Date Name Laterality Status Provider Name and Address Organization Details Recorded Time 06/10/19 24 total replacement of hip completed Imelda Fisher MA [facility] 10/05/2023 15:14:49 Eye Surgery completed Imelda Fisher MA [facility] 10/05/2023 15:45:20 Tonsillectomy completed Iemlda Fisher MA [facility] 10/05/2023 15:45:27 excision of bilateral fallopian tubes and ovaries completed Imelda Fisher MA [facility] 10/05/2023 15:45:34 Imaging Results Imaging Date Name Status LastModified by [facility] Details LastModified Time 11/16/2023 DEXA completed [address] [facility], [place], [address], 11/18/2023 17:58:20 11/18/2023 DEXA completed [address], [place], [address], 04/10/2024 15:26:45 12/21/2023 MAMMO, screening, digital, bilateral completed [address], [address], 04/10/2024 15:26:41 02/23/2024 US, duplex, renal artery completed [address], [address], 04/10/2024 15:26:39 11/19/2022 MAMMO, screening, digital, bilateral completed BARCODE Information not available 04/19/2024 19:59:40 Procedure Notes None recorded. Medical Equipment None Reported. Allergies Allergen ID Allergen Name Allergen Category Reaction Reaction Severity Criticality Documentation Date Start Date Code Code System Note Provider Name and Address Organization Details Recorded Time [id number] Zithromax medicatio n itching Not available Not available 10/05/2023 65039 4 RxNorm Not Available Not Available Not Available [id number] Substance with sulfonami de structure and antibacte rial mechanism of action (substanc e) medicatio n Not available Not available Not available 10/05/2023 20314 8003 SNOMED Not Available Not Available Not Available Medications Name Sig Start Date Stop Date Status Note LastModified by Organization Details LastModified Time amlodipine 5 mg tablet One tab p.o. daily 2024 active Not Available Not Available Not Avai lable amoxicillin 500 mg tablet TAKE 4 TABLET BY MOUTH 1 HOUR PRIOR TO APPOINTME NT 03/28 completed Not Available Not Available Not Available levothyroxi ne 75 mcg tablet Take 1 tablet every day by oral route for 90 days. active Not Available Not Available No t Available amlodipine 10 mg tablet 03/28 completed Not Available Not Available Not Available pantoprazol e 40 mg tablet,matheus yed release Take 1 tablet every day by oral route for 90 days. active Not Available Not Available No t Available fluoxetine 10 mg capsule Take 3 capsules every day by oral route for 90 days. active Not Available Not Available No t Available fluoxetine 20 mg capsule Take by oral route for 14 days. 03/28 completed Not Available Not Available Not Available ezetimibe 10 mg tablet Take 1 tablet every day by oral route for 90 days. active Not Available Not Available No t Available bupropion HCl XL 150 mg 24 hr tablet, extended release TAKE 1 TABLET BY MOUTH EVERY DAY 2024 active Not Available Not Available Not Avai lable chlorhexidi ne gluconate 0.12 % mouthwash PLEASE SEE ATTACHED FOR DETAILED DIRECTION S 10/04 completed Not Available Not Available Not Available pitavastati n calcium 1 mg tablet TAKE 1 TABLET BY MOUTH EVERY DAY 2023 active Not Available Not Available Not Avai lable Vitals Date Recorded Body weight Provider Name an d Address Organization Details Last Updated DateTime 10/05/2023 43607.33 g Imelda Fisher [place] [facility] 2023 15:11:46 Date Recorded Respiratory rate Provider Name a nd Address Organization Details Last Updated DateTime 10/05/2023 20 /min Imelda Fisher [place] LUNAYoselin 10/05/2023 15:13:22 Date Recorded Body mass index (BMI) Body height Provider Name and Address Organization Details Last Updated DateTime 10/05/2023 20.3 kg/m2 160.02 cm Imelda Fisher [place] 10/05/2023 15:13:28 Date Recorded Oxygen saturation Oxygen saturation in Arterial blood by Pulse oximetry Provider Name and Address Organization Details Last Updated DateTime 10/05/2023 98 % 98 % Imelda Fisher [place] JEREMYYoselin 10/05/2023 15:20:00 Date Recorded Heart rate Provider Name an d Address Organization Details Last Updated DateTime 10/05/2023 76 /min Imelda Fisher MA [facility] JEREMY 2023 15:20:04 Date Recorded Body height Provider Name an d Address Organization Details Last Updated DateTime 03/28/2024 160.02 cm Imelda Fisher MA [facility] J[facility] 2023 14:31:01 Date Recorded Body mass index (BMI) Body weight Provider Name and Address Organization Details Last Updated DateTime 03/28/2024 19.8 kg/m2 96057.35 g Imelda Fisher MA [facility] [place] JEREMY 03/28/2024 14:32:42 Date Recorded Respiratory rate Provider Name a nd Address Organization Details Last Updated DateTime 03/28/2024 20 /min Imelda Fisher [place] 03/28/2024 14:32:57 Date Recorded Oxygen saturation Oxygen saturation in Arterial blood by Pulse oximetry Provider Name and Address Organization Details Last Updated DateTime 03/28/2024 99 % 99 % OLIVIA Smart JEREMY 03/28/2024 14:36:56 Date Recorded Heart rate Provider Name an d Address Organization Details Last Updated DateTime 03/28/2024 67 /min Imelda Fisher MA [facility] 2023 14:36:57 Date Recorded Systolic blood pressure Diastolic blood pressure Provider Name and Address Organization Details Last Updated DateTime 10/05/2023 138 mm[Hg] 82 mm[Hg] Imelda Fisher MA [facility] 10/05/2023 15:21:51 Date Recorded Systolic blood pressure Diastolic blood pressure Provider Name and Address Organization Details Last Updated DateTime 03/28/2024 136 mm[Hg] 82 mm[Hg] Imelda Fisher MA [facility] 03/28/2024 14:38:29 Date Recorded Systolic blood pressure Diastolic blood pressure Provider Name and Address Organization Details Last Updated DateTime 03/28/2024 134 mm[Hg] 70 mm[Hg] DORA Cristobal Attn: Accounting,[address] [facility], [place], [address], [facility] 03/28/2024 14:58:04 Social History Question Answer Notes LastModified by Organizat ion Details LastModified Time Tobacco Smoking Status Never Smoker Imelda Fisher MA null, [facility] 10/05/2023 15:09:58 Do You Have An Advance Directive? Yes Information not available 10/05/2023 What Is Your Level Of Alcohol Consumption? Occasional Information not available 10/05/2023 Are You Blind Or Do You Have Difficulty Seeing? No Cheaters Information not available 10/05/2023 What Is Your Level Of Caffeine Consumption? Occasional Soda Information not available 10/05/2023 In The 14 Days Before Symptom Onset, Have You Had Close Contact With A Laboratory-confir med COVID-19 While That Case Was Ill? No Information not available 10/04/2023 In The 14 Days Before Symptom Onset, Have You Had Close Contact With A Person Who Is Under Investigation For COVID-19 While That Person Was Ill? No Information not available 10/04/2023 Have You Been To An Area Known To Be High Risk For COVID-19? No Information not available 10/04/2023 Are You Deaf Or Do You Have Serious Difficulty Hearing? No Information not available 10/05/2023 What Type Of Diet Are You Following? REGULAR Information not available 10/05/2023 Are There Any Guns Present In Your Home? No Information not available 10/05/2023 What Was The Date Of Your Most Recent Tobacco Screening? 03/28/2024 Information not available 03/28/2024 What Is Your Relationship Status? Information not available 10/05/2023 Do You Use Your Seat Belt Or Car Seat Routinely? Yes Information not available 10/04/2023 Do You Have Smoke And Carbon Monoxide Detectors In Your Home? Yes Information not available 10/04/2023 Do You Use Any Illicit Or Recreational Drugs? No Information not available 10/05/2023 Do You Use Sunscreen Routinely? No Information not available 10/05/2023 Has Tobacco Cessation Counseling Been Provided? Yes Information not available 10/04/2023 On What Date Was Tobacco Cessation Counseling Provided? 03/28/2024 Information not available 03/28/2024 Do You Or Have You Ever Used Any Other Forms Of Tobacco Or Nicotine? No Information not available 10/05/2023 Sex: Female Functional Status Question Answer Note LastModified by Organization D etails LastModified Time Are you able to care for yourself? Yes Information n ot available 10/04/2023 Mental Status None recorded. Family History Relationship Description Onset Age of this Age Resolved Age Notes LastModified by Organization Details LastModified Time Mother Cerebrovascu lar accident [email or web address] Not available 15:45:54 Mother Depressive disorder tcarterma Not available 2023 15:46:01 Mother Migraine [email or web address] Not availabl e 10/05/2023 15:46:10 Sister Depressive disorder tcarterma Not available 2023 15:46:01 Sister Migraine tcarterma Not availabl e 10/05/2023 15:46:10 Medical History Condition Response Coronary Artery Disease N Other N High Blood Pressure Y Atrial Fibrillation N Kidney or Bladder Problems Y Thyroid Problems N GI Problems N Depression Y COPD N Blood Clots N Skin Problems N Anemia N Heart Attack ([place]) N Anxiety Disorder Y Diabetes N Muscle, Joint, or Bone Problems Y Seizures/Epilepsy N Acid Reflux (GERD) N Cancer N Stroke N Asthma N Allergies Y High Cholesterol N Hepatitis N Liver Disease N Headaches N Heart Failure N Osteoporosis N Gynecological History Statement/Question Response Menses Monthly N Current Control Method Other Obstetrics History GPAL:G 0 P 0 0 0 0 Immunizations Vaccine Type Date Status Note Provider Nam e and Address Organization Details Recorded Time Influenza, split virus, quadrivalent, preservative 9 completed OLIVIA Smart[place] [facility] 03/27/2024 15:07:16 Influenza, MDCK, quadrivalent, PF 0 completed [place] [facility] 03/27/2024 15:07:16 zoster recombinant 4 completed OL[place] [facility] 03/27/2024 15:07:16 Influenza, high-dose, quadrivalent, PF 3 completed [place] [facility] 03/27/2024 15:07:16 COVID-19, mRNA, LNP-S, PF, 100 mcg/0.5mL dose or 50 mcg/0.25mL dose 1 completed [place] [facility] 03/27/2024 15:07:16 COVID-19, mRNA, LNP-S, PF, 100 mcg/0.5mL dose or 50 mcg/0.25mL dose 1 completed OLIV[place] [facility] 03/27/2024 15:07:16 COVID-19, mRNA, LNP-S, PF, 100 mcg/0.5mL dose or 50 mcg/0.25mL dose 1 completed OLIV[place] [facility] 03/27/2024 15:07:16 Pneumococcal conjugate PCV20, polysaccharide [id number] conjugate, adjuvant, PF 4 completed OLIV[place] [facility] 03/27/2024 15:07:16 RSV, recombinant, protein subunit RSVpreF, adjuvant reconstituted, 0.5 mL, PF 3 completed [place] [facility] 03/27/2024 15:07:16 COVID-19, mRNA, LNP-S, PF, 50 mcg/0.5 mL 3 completed [place] [facility] 03/27/2024 15:07:16 Pneumococcal conjugate PCV 13 7 completed [place] [facility] 03/27/2024 15:07:16 Influenza, high-dose, trivalent, PF 3 completed [place] [facility] 03/27/2024 15:07:16 Influenza, split virus, trivalent, preservative 4 completed [place] [facility] 03/27/2024 15:07:16 Influenza, split virus, trivalent, preservative 7 completed [place] [facility] 03/27/2024 15:07:16 Influenza, split virus, trivalent, PF 6 completed [place] [facility] 03/27/2024 15:07:16 Influenza, split virus, trivalent, PF 5 completed [place] [facility] 03/27/2024 15:07:16 Influenza, split virus, quadrivalent, PF 8 completed [place] [facility] 03/27/2024 15:07:16 Influenza, split virus, quadrivalent, PF 2 completed [place] [facility] 03/27/2024 15:07:16 Influenza, split virus, quadrivalent, PF 1 completed [place] [facility] 03/27/2024 15:07:16 Past Encounters Encounter ID Performer Location Encounter Start Date Encounter Closed Date Diagnosis/Indication Diagnosis SNOMED-CT Code Diagnosis ICD10 Code Diagnosis Note [id number] DORA Cristobal [facility] [place] [address] [place] [address] 10/05/2023 15:01:02 10/05/2023 16:14:07 Hypothyroidism 12387057 E03.9 Patient is due for updated thyroid function labs, she is taking levothyrox ine 75 mcg daily Benign ess ential hypertension 0800758 I10 Blood pressure is 138/82 today. The patient is stable on amlodipine 10 mg daily Long-term drug therapy 451484000 Z79.899 All routine labs were ordered today Gastroesop hageal reflux disease without esophagitis 018353059 K21.9 Patient is stable on pantoprazo le 40 mg daily with no symptom issue of breakthrou gh History of hip fracture 475145255 Z87.81 Patient has history of repeat fracture of the hip, vitamin-D lab is ordered. She is up-to-date on DEXA scan. Hyperlipidemia 32512885 E78.5 Patient is due for updated fasting lipid panel. She is taking atorvastat in 1 mg daily from specialist Body mass index 20-24 - normal 858499203 Z68.20 Depressive disorder 3548 9007 F32.A Patient is stable on fluoxetine 20 mg daily and Wellbutrin XL 150 mg daily [id number] DORA Cristobal [facility] [place] [address] [place] [address] 03/28/2024 14:08:02 03/28/2024 15:56:53 Benign essential hypertension 1639652 I10 Blood pressure is 134/70 today. The patient is stable on amlodipine 5 mg daily Hypothyroidism 17810016 E03.9 Patient is due for updated thyroid function labs, she is taking levothyrox ine 75 mcg daily Hyperlipidemia 09077528 E78.5 Patient is due for updated fasting lipid panel. She is taking pitavastat in 1 mg daily from specialist Depressive disorder 5687 1317 F32.A Patient is stable on fluoxetine 20 mg daily and Wellbutrin XL 150 mg daily Gastroesop hageal reflux disease without esophagitis 883763386 K21.9 Patient is stable on pantoprazo le 40 mg daily with no symptom issue of breakthrou gh Long-term drug therapy 392259285 Z79.899 All routine labs were ordered today to complete in April History of hip fracture 563474572 Z87.81 Patient has history of repeat fracture of the hip, vitamin-D lab is ordered. She is up-to-date on DEXA scan. Alkaline p hosphatase above reference range 997654099 R74.8 Check ultrasound of the liver and alk-phos isoenzymes for noted alkaline phosphatas e of 174 on previous labs Body mass index less than 20 [id number] Z68.1 BMI is 19.8 Health Concerns Section Related Observation LastModified by Organization Detai ls LastModified Time None Recorded Concern Status LastModified by Organization Details LastModified Time None Recorded Advance Directives Directive Y: Payers Encounter Date Sequence Insurance Name Policy Number Policy Contreras Covered Member ID Contreras Member ID Guarantor Name 10/05/2023 1 [employer] (MEDICARE REPLACEMENT PPO) [id number] Mercedes Morfin [id number] Mercedes Morfin 03/28/2024 1 [employer] (MEDICARE REPLACEMENT PPO) [id number] Mercedes Morfin [id number] Mercedes Morfin Notes Date Note Type Note Provider Name and Address Organization Details Recorded Time 10/05/2023 text/html Anxiety/Depressi onRe ported bypatient.Notes:stab le on wellbutrin XL 150mg daily and fluoxetine 20mg daily.HypertensionRe ported bypatient.Duration:h as noted for years Onset/Timing:better Alleviating Factors:medicationRe flux/GERDReported bypatient.Duration:p resent 5 or more yearsNotes:stable on pantoprazole 40mg daily.ThyroidReporte d bypatient.Quality:no t changing Duration:constant Onset/Timing:still present Context:history of hypothyroidism DORA Cristobal Attn: Accounting[address] [place], [address], [facility] 10/16/2023 14:12:18 03/28/2024 text/html Anxiety/Depressi onRe ported bypatient.Notes:stab le on wellbutrin XL 150mg daily and fluoxetine 20mg daily.HypertensionRe ported bypatient.Duration:h as noted for years Onset/Timing:better Alleviating Factors:medicationNo jeremy:Patient is taking amlodipine 5 mg daily for blood pressure management. She does have a history of renal artery stenosis with vascular stent placed several years agoReflux/GERDReport ed bypatient.Duration:p resent 5 or more yearsNotes:stable on pantoprazole 40mg daily.ThyroidReporte d bypatient.Quality:no t changing Duration:constant Onset/Timing:still present Context:history of hypothyroidism DORA Cristobal Attn: Accounting[address] [place], [address], [place] - [facility] 04/10/2024 15:41:06 OBGyn Episode No OBEpisode recorded.
== END 2024-04-27 07:27 | disposition home or self-care (01) ==
PROVIDERS: PCP Physician Assistant; Visit Provider Physician Assistant
DX: E03.9 Hypothyroidism, unspecified (principal); E78.5 Hyperlipidemia, unspecified; Z79.899 Other long term (current) drug therapy; Z87.81 Personal history of (healed) traumatic fracture; R74.8 Abnormal levels of other serum enzymes
CPT/HCPCS: 36415; 80048; 80061; 80076; 82306; 84075; 84080; 84439; 84443; 85025

== ENCOUNTER 2024-06-05 09:18 | Outpatient (CLI) | payer MEDICARE, SELFPAY ==
--- NOTE | ~2024-06-05 | US_ITS ---
EXAMINATION: US right upper quadrant DATE: 06/05/2024 10:17 INDICATION: Elevated alkaline phosphatase TECHNIQUE: Multiple grayscale and Doppler ultrasound images of the abdomen were obtained. COMPARISON: Ultrasound dated FINDINGS: The pancreatic head and body are normal in appearance. The pancreatic tail is not visualized. Visual ized proximal to mid abdominal aorta and inferior vena cava are normal. Liver has normal echogenicity and contour, with a smooth surface. No liver lesion identified. No intrahepatic biliary duct dilatio n suspected. Portal venous flow was seen in the hepatopetal, normal direction and has normal Doppler waveform. The gallbladder is normal in appearance. There is no cholelithiasis. The common bile duct measures 3 mm, which is normal. Sonographic Ferrera sign was reported as negative by the pulp refiner operator.V isualized portion of the right kidney demonstrates normal contour and echogenicity with no hydronephr osis. IMPRESSION: 1. Normal right upper quadrant ultrasound. Reviewed, dictated and finalized at location B. T METAL HELPER
--- OUTSIDE RECORDS SUMMARY | 2024-06-05 10:09 | XMS_ITS ---
Author Organization [facility] santi Address [address] [facility] [address] [place] [address] Care Team Providers Care Surgical Supervisor Name Role Phone zalyssaMigreddy, zzzzProvider Unavailable Unav ailable Allergies Allergen (clinical [...] doctor Oral 08/27/2010 Active Biotin Maximum Strength 63188 MCG 1 qd Oral Active Aspirin 81 MG 1 Every Day Oral 10/11/2005 Active Caltrate 600mg once daily in addition to other calcium *Reorder from [facility] for eRx and Interaction Alerts* 08/27/2010 Active Centrum Silver 1 Every Day Oral 10/11/2005 Active Encounters Encounter Location Date Provider Diagnosis [facility] [address] [facility] [address] [place] [address] 01/30/2023 zzzzProvider zzzzMigration Plan Of Treatment No Information Progress Notes * Mercedes MORFIN TDOB:[birth year] (78 yo F)Acc No.[id number]:01/30/2023 Patient: Mercedes CHANG :1945 A ge:77 Y S ex:Female Address:[address] [place] [address] [place], [address] Subjective: * Chief Complaints: * E MR-Darrius * Medical History: * 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 * OB History: M igrated OBHistory P regnancy:: Total Pregnancies: 3, Full Term: 2, Ab Spontaneous: 1, .? * Surgical History: T &A: as a child; 1601-87-88Emurb ligation: laparoscopic by cautery; 2012-02-16 * Hospitalization/Major Diagno stic Procedure: * Family History: M igrated Family History: Father Notes: at 93, cause of was advanced age , Mother Notes: at 90, cause of was abdominal aortic aneurysm , Sibling-Sister Notes: Suad, lives out of state, illnesses include: chronic headaches and depression . * Social History: M igrated Social History: M igrated Social History: :: 1 Daughter :: note : healthy , :: 1 Son :: note : healthy , Exercise :: Does not exercise regularly :: note : back pain , Marital Status :: , Occupation :: Retired , Substance Use :: rare alcohol usage :: Current some day , Substance Use :: Tobacco :: Never. * Medications: T akingOcuvite Adult 50+ Capsule per eye doctor Oral Biotin Maximum Strength 43896 MCG Tablet 1 qd Oral Aspirin 81 MG Tablet Delayed Release 1 Every Day Oral Centrum Silver Tablet 1 Every Day Oral Caltrate 600mg once daily in addition to other calcium , Notes to Pharmacist: *Reorder from [facility] for eRx and Interaction Alerts*Taking Ocuvite Adult 50+ Capsule per eye doctor Oral Taking Biotin Maximum Strength 14906 MCG Tablet 1 qd Oral Taking Aspirin 81 MG Tablet Delayed Release 1 Every Day Oral Taking Centrum Silver Tablet 1 Every Day Oral Taking Caltrate 600mg once daily in addition to other calcium , Notes to Pharmacist: *Reorder from [facility] for eRx and Interaction Alerts* * Allergies: E rythromycin: Reaction: GI upset - Allergy - Onset Date 09/15/2005Zithromax Z- Harpal: Reaction: itch, no hives Notes: Rash - Allergy - Onset Date 04/20/2004Sulfa Antibiotics: Reaction: GI upset Notes: GI upset - Allergy - Onset Date 04/20/2004 Objective: * Vitals: * Physical Examination: Assessment: Plan: * Treatment: * Procedure Codes: * * Date:
--- OUTSIDE RECORDS SUMMARY | 2024-06-05 10:09 | XMS_ITS | Patient Health Record ---
Author Organization [facility] santi Address [address] [facility] [address] [place] [address] Support Name Relationship Address Phone Mercedes Morfin Guarantor Unknown [phone] Reason For Referral No Information Medications Medication SIG (Take, Route, Frequency, Duration) Notes Start Date End Date Status Ocuvite Adult 50+ per eye doctor Oral 08/27/2010 Active Biotin Maximum Strength 81973 MCG 1 qd Oral Active Aspirin 81 MG 1 Every Day Oral 10/11/2005 Active Caltrate 600mg once daily in addition to other calcium *Reorder from [facility] for eRx and Interaction Alerts* 08/27/2010 Active Centrum Silver 1 Every Day Oral 10/11/2005 Active Immunizations Vaccine Route Administration Date Status Comme nts Infuenza, trivalent, recombinant, preservative free Unknown 12/29/2009 Administered migrated LegPatid= [id number] Date=02/17/1999 Vac= Influenza Infuenza, trivalent, recombinant, preservative free Unknown 02/08/2013 Administered [facility] [phone] Infuenza, trivalent, recombinant, preservative free Unknown 01/12/2014 Administered wal Infuenza, trivalent, recombinant, preservative free Unknown 01/02/2015 Administered [facility] [phone] Pneumococcal conjugate PCV 13 Unknown 01/09/2010 Administered migrated LegPatid= [id number] Date=01/09/2010 Vac= pneumococcal Pneumococcal conjugate PCV 13 IM Intramuscular 03/25/2014 Administered Pneumococcal conjugate PCV 13 IM Intramuscular 03/26/2015 Administered Tdap Unknown 09/29/2006 Administered migrated LegPatid= [id number] Date=09/29/2006 Vac= Tdap Problems Problem Type SNOMED Code ICD Code Onset Dates Problem Status W/U Status Risk Notes Problem Pathological fractur e of vertebra (disorder) (881354516) 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 Getting EDWARD, sees range examiner for osteopenia and saw pain management Problem Major depression, single episode (39094559) Major depressive disorder, single episode, unspecified (F32.9) Active confirmed 03/23/2013 - Dr Gonzalez is moving sees Dr Gonzalez, on wellbutrin/p rozac Problem Allergic rhinitis (32764566) Allergic rhinitis, unspecified (J30.9) 2005 Active confirmed all year, Zyrte Problem Gastro-esophageal reflux disease with esophagitis (752739127) Gastro-esophag eal reflux disease with esophagitis (K21.0) 2011 Active confirmed 02/16/2012 on omeprazole, Step down to Zantac (osteopenia) Problem Low back pain (108157687) Low back pain (M54.5) 2005 Active confirmed Problem Disorder of bone (32655399) Other specified disorders of bone density and structure, unspecified site (M85.80) 2006 Active confirmed compression fracture L2-3 11/2011, took Fosamax 5-10 yrs per range examiner, Off in 2009 Problem Chronic kidney disease stage 3 (disorder) (398855721) Chronic kidney disease, stage 3 (moderate) (N18.3) Active confirmed ., no renal US yet Problem SI - Stress incontinence (13247404) Stress incontinence (female) (male) (N39.3) 2005 Active confirmed urge incontinence , meds caused dry mouth, per urologist Problem Palpitations (58033932) Palpitations (R00.2) 2005 Active confirmed resolved Problem Amnesia (74177581) Other amnesia (R41.3) 2014 Active confirmed Problem Elevated levels of transaminase & lactic acid dehydrogenase (386457636) Nonspecific elevation of levels of transaminase and lactic acid dehydrogenase [LDH] (R74.0) Active confirmed ast alt 36/41 Problem Pure hypercholesterolemia (238725339) Pure hypercholester olemia, unspecified (E78.00) Active confirmed 09/15/2012 - 93/50/60 no meds red yeast rice 02/21/2012 - 187/50/72, none, Diet, etc, consider medication Plan Of Treatment No Information Insurance Providers Payer Name Payer Address Payer Phone Subscriber Number Group Number Insured Name Patient Relationship to Insured Coverage Start Date Coverage End Date DO NOT USE - [employer] [address] [address] [place], [place] [id number] Mercedes Morfin Self - patient is the insured 4 [employer] [place] [address] [place] [address] [id number] Mercedes Morfin Self - patient is the insured 2 [employer] [address] [place], [place] [id number] [id number] Mercedes Morfin Self - patient is the insured 2 Medical (General) History Surgical History Surgery Date(Month/Year) T&A: as a child; 2012-02-16 Tubal ligation: laparoscopic by cautery; 2012-02-16
--- OUTSIDE RECORDS SUMMARY | 2024-06-05 10:09 | XMS_ITS | Encounter Summary ---
Author Organization [facility] Address [address] [place] [address] Care Team Providers Care Welfare Visitor Name Role Phone Patricia Vaca APRN-CARPET WEAVER Primary Care Prov ider Unavailable Tania Moreau Primary Care Pr ovider Tania Moreau Primary Care Pr ovider Encounter Details Date Type Department Care Team (Late Contact Info) Description 02/02/2022 Telephone [facility] - Third Level [address] [place] [address], [place] [address] Primo Yanez MD [address] [place] [address] [place] [address] Social History Tobacco Use Types Packs/Day Years Used Date Smoking Tobacco: Never Assessed Sex and Gender Information Value Date Recorded Sex Assigned at Not on file Gender Identity Not on file Sexual Orientation Not on file documented as of this encounter Plan of Treatment Upcoming Encounters Date Type Department Care Team (Late Contact Info) Description 10/23/2024 11:15 AM CDT Office Visit [facility] - Orthopedic Surgery [address] [place] [phone] Braxton Wilkins MD [address] [address] 11/01/2024 11:20 AM CDT Office Visit [facility] - Rheumatology [address] [place] [address] Caden Rodriguez DO [address] [place] [address] documented as of this encounter Visit Diagnoses Not on filedocumented in this encounter Additional Health Concerns Infection Onset Date Last Indicated Resolved Time COVID-19 Under Investigation 06/29/2023 06/29/2023 06/29/2023 5:02 PM CDT documented as of this encounter Care Teams Welfare Visitor Relationship Specialty Start Date End Date Patricia Vaca APRN-COLLEEN Update Information PCP - General 02/01/22 02/24/22 Tania Moreau PA [address] [place] [address] [place] [phone] PCP - General Physician Credit Front Office Developer 02/25/22 05/20/22 Tania Moreau PA [address] [place] [phone] PCP - General Physician Credit Front Office Developer 11/03/23 documented as of this encounter
--- OUTSIDE RECORDS SUMMARY | 2024-06-05 10:10 | XMS_ITS ---
Author Organization [facility] santi Address [address] [facility] [address] [place] [address] Care Team Providers Care Display Screen Fabricator Name Role Phone Tammy Nazario Unavailable Unav ailable REASON FOR VISIT EMR-Darrius Encounters Encounter Location Date Provider Diagnosis [facility] [address] [facility] [address] [place] [address] 01/29/2023 zzzzProvider zzzzMigration Plan Of Treatment Medication [...] A Day, As Needed 07/11/2009 *Reorder from [facility] for eRx and Interaction Alerts* Aricept 10 MG take 1 tablet (10 mg) by oral route once daily in the evening Oral 1 for 30 03/26/2015 03/20/2016 Pyeyuddore-HILD-Oxvmmm ne 50-300-40 MG 1 Three Times A Day, As Needed Oral for 30 10/04/2014 11/03/2014 Zantac 360 10 MG take 1 tablet (150 mg) by oral route 2 times per day Oral 2 for 60 03/23/2013 03/18/2014 FLUoxetine HCl 20 MG 1 Every Day Oral 10/11/2005 Biotin Maximum Strength 48209 MCG 1 Every Day Oral 10/11/2005 Aplenzin one daily for depression, Dr Wm Gonzalez 04/29/2010 *Pick strength-form from [facility] for eRX* tiZANidine HCl 4 MG take 1 capsule (4 mg) by oral route 3 times per day Oral 3 Yyfpuba-Spcsavcje-Yxep 1 Two Times A Day 10/11/2005 *Pick strength-form from [facility] for eRX* Aplenzin 348 mg take 1 tablet (348 mg) by oral route once daily in the morning for 30 days Oral 1 for 30 02/08/2014 05/09/2014 Benzonatate 200 MG take 1 capsule (200 mg) by oral route 3 times per day as needed for 10 days Oral 3 for 10 01/09/2013 01/19/2013 PSEUDOFED 30MG takes OTC [facility] daily 08/27/2010 *Reorder from [facility] for eRx and Interaction Alerts* Progress Notes * Mercedes MORFIN TDOB:[birth year] (78 yo F)Acc No.[id number]:01/29/2023 Patient: Mercedes CHANG :1945 A ge:77 Y S ex:Female Address:[address] [place] [address], [facility] [address] * Refills Stop PSEUDOFED 30MG, 1.00, takes OTC [facility] daily Stop Gyvsukodjg-NOOR-Hdihczzi Capsule, 50-300-40 MG, Oral, 20, 1 Three Times A Day, As Needed, 30 Stop FLUoxetine HCl Tablet, 20 MG, Oral, 45, take 1.5 tablets by oral route daily, 1, 30 Stop Zantac 360 Tablet, 10 MG, Oral, 120, take 1 tablet (150 mg) by oral route 2 times per day, 2, 60 Stop Zuwotmlgzl-FSVS-Amqpvfof Capsule, 50-300-40 MG, Oral, 20.00, 1 Three Times A Day, As Needed, 30 Stop Mahaufueli-VQMW-Ljoxorye Capsule, 50-300-40 MG, Oral, 20, 1 Three [...] oral route once daily in the evening, 1, 30 Stop Benzonatate Capsule, 200 MG, Oral, 30, take 1 capsule (200 mg) by oral route 3 times per day as needed for 10 days, 3, 10 Stop Aplenzin Tablet Extended Release 24 Hour, 348 mg, Oral, 30, take 1 tablet (348 mg) by oral route once daily in the morning for 30 days, 1, 30 Stop FLUoxetine HCl Capsule, 20 MG, Oral, 0.00, 1 Every Day Stop Biotin Maximum Strength Tablet, 10140 MCG, Oral, 0.00, 1 Every Day Stop Zantac 360 Tablet, 10 MG, Oral, 120, take 1 tablet (150 mg) by oral route 2 times per day, 2, 60 Stop FLUoxetine HCl Tablet, 20 MG, Oral, 45, take 1.5 tablets by oral route daily, 1, 30 Stop Ydzohou-Zjupssvym-Moef, 0.00, 1 Two Times A Day Stop tiZANidine HCl Capsule, 4 MG, Oral, 0, take 1 capsule (4 mg) by oral route 3 times per day, 3 Stop Aplenzin, 0.00, one daily for depression, Dr Wm Gonzalez Stop FLUoxetine HCl Tablet, 20 MG, Oral, 45, take 1.5 tablets by oral route daily, 30 Subjective: * Chief Complaints: * E MR-Darrius * Medical History: * Surgical History: * Hospitalization/Major Diagno stic Procedure: * Medications: Objective: * Vitals: * Physical Examination: Assessment: Plan: * Treatment: * Procedure Codes: * * Date:
--- OUTSIDE RECORDS SUMMARY | 2024-06-05 10:10 | XMS_ITS | Referral Summary ---
Author Organization [facility] Address [address] [facility] [place] [address] Care Team Providers Care Application Spec Name Role Phone Tania Moreau Primary Care Pr ovider Source Comments [facility],non-owned Affiliates and Associated Physician Practices is amultiple site organization consisting of ambulatory clinics and hospital sitesin [place], [place], [place] and [place]. This disclosure is being madepursuant to the Care Everywhere program and may not contain all information available regarding this patient. Last updated 17.[facility] Allergies Active Allergy Reactions Criticality Noted Date [...] Morfin has been encouraged to take supplemental tmjv-vua-lnaftvc (preferably calcium citrate) 6308-5704 mg and vitamin D3 1000 IU daily [...] performed and will try to check with [facility] pathology. Encouraged to follow up with pulmonary [...] Recorded Patient Health Questionnaire-2 Score 0 09/07/2023 [facility] - Occupational [...] place to sleep or slept in a penitentiary (including now)? No 06/23/2023 Sex and Gender Information Value Date Recorded Sex Assigned at Not on file Gender Identity Not on file Sexual Orientation Not on file Last Filed Vital Signs Vital Sign Reading Time Taken Comments Blood Pressure 130/60 11/02/2023 11:02 AM CDT Pulse 74 11/02/2023 11:02 AM CDT Temperature 36.7 C (98 F) 11/02/2023 11:02 AM CDT Respiratory Rate 16 [...] Description 10/23/2024 11:15 AM CDT Office Visit [facility] - Orthopedic Surgery [address] [place] [phone] Braxton Wilkins MD [address] [facility] [address] [place] [address] 11/01/2024 11:20 AM CDT Office Visit [facility] - Rheumatology [address] [facility], [address] [place] [address] Caden Rodriguez DO [address] [facility] [address] [place] [address] Procedures Procedure Name Priority Date/Time [...] 9:07 AM 06/29/2023 8:41 PM Care Teams Application Spec Relationship Specialty Start Date End Date Tania Moreau PA [address] [place] [address] PCP - General Physician Critical Power Install Technician 11/03/23
--- OUTSIDE RECORDS SUMMARY | 2024-06-05 10:10 | XMS_ITS | Data Portability ---
Author Organization FLAVIO Miko HENDERSON Address [address] [facility] [place]LA[place]IO [place]ouch [address] Care Team Providers Care Jewel Supervisor Name Role Phone SYDNEY PALMER Primary Care [...] Not available Not available Not available Lab alkaline phosphata se isoenzyme s, serum or plasma [address] [facility], [address] [place] [address], [id number], 05/09/2024 16:40:07 CBC w/ auto diff 2023 025 [facility], [address] [place] [address], [id number], 05/07/2024 16:01:28 hepatic function panel, serum 2023 025 [facility], [address] [place] [address], [id number], 05/07/2024 15:59:16 BMP, serum or plasma 2023 025 [facility], [address] [place] [address], [id number], 05/07/2024 16:00:01 lipid panel, serum 2023 025 [facility], [address] [place] [address], [id number], 05/07/2024 16:01:51 vitamin D, 25-hydrox y, total, serum 2023 025 [facility], [address] [place] [address], [address], 05/07/2024 16:01:24 TSH + free T4, serum 2023 025 [facility], [address] [place] [address], [id number], 05/07/2024 16:01:00 CBC w/ auto diff 2023 024 [facility], [address] [place] [address], [address], 10/21/2023 09:51:03 hepatic function panel, serum [address] [facility], [address] [place] [address], [address], 11/18/2023 11:53:30 BMP, serum or plasma [address] [facility], [facility] [address], [address], 11/23/2023 11:35:58 vitamin B12 + folate, serum or blood 2023 024 [facility], [address] [place] [address], [address], 10/21/2023 12:08:24 lipid panel, serum 2023 024 [facility], [address], [place], [address], 10/21/2023 12:08:24 vitamin D, 25-hydrox y, total, serum 2023 024 [facility], [address] [facility] [address], [place], [address], 11/16/2023 12:09:34 TSH + free T4, serum [address] [facility], [address] [facility] [address], [place], [address], 11/23/2023 11:35:58 Referral None recorded. Procedures None recorded. Surgeries None recorded. Imaging US, liver - also comment on gallbladd er [address] (Imaging), [address] [place] [address] [place] [address], [id number], 05/16/2024 15:59:19 Medication Orders None recorded. Patient TargetsNo targets [...] color ectal cance r (CRC) or advan prais adeno ma (vipul omato us polyp s [...] 10,00 0 indiv idual s at [facility] risk for color ectal cance r who [...] tomat ic indiv idual s at [facility] risk for color ectal cance r. Follo [...] 112:1 016-1 030. TEST DESCR IPTIO N: [place] site algor ithmi c arely sis of [...] years or older , who are at [facility] for color ectal cance r (CRC) . Colog uard has been appro kobe for use by the [place] FDA. The perfo rmanc e of Colog uard was estab lishe d in a cross secti onal study of [facility] adult s aged 50-84 . Colog [...] study of 0 indiv idual s at [facility] risk for color ectal cance r who [...] d [facility]at ion: www.e xactl abs.c om/re sults . Addit ional descr iptio n of the Colog uard test proce ss, warni ngs and preca ution s can be found at www.pravin vo.pravin om. Not Available [facility] (Cologuard Orders Only) [address], [place], [address], 03/30/2024 21:21:26 11/18/19 24 11/16/2023 DEXA No observ ation record ed. [address]) [address] [facility], [place], [address], 11/18/2023 17:58:20 11/22/19 24 11/18/2023 DEXA No observ ation record ed. [address] [facility] [address], [place], [address], 04/10/2024 15:26:45 12/22/19 24 12/21/2023 MAMMO , scree blanca, digit al, bilat eral No observ ation record ed. [address] [facility], [place], [address], 04/10/2024 15:26:41 02/23/20 24 02/23/2024 US, duple x, renal arter y No observ ation record ed. [address], [place], [address], 04/10/2024 15:26:39 04/19/19 25 11/19/2022 MAMMO , scree blanca, digit al, bilat eral No observ ation record ed. BARCODE Not Available 2024 19:59:40 Result Notes None recorded. Problems Name Problem SNOMED Code Status Onset Date Resolution Date Notes Provider Name and Address Organization Details Recorded Time Hypertensive disorder 79622284 Active 2023 Concepción Aguilera [facility], [place] - [facility] 10:22:26 Hypothyroidism 63171606 Active 2023 Concepción Aguilera null, [place] - [facility] 4 10:22:33 Gastroesophage al reflux disease 424379016 Active 2023 Concepción Aguilera null, [place] - [facility] 4 10:22:37 Hyperlipidemia 51862630 Active 2023 DORA Cristobal Attn: Marcella alvarado,[address] [place], [address], [place] [facility] 4 15:44:30 Body mass index 20-24 - normal 595129321 Active 2023 DORA Cristobal Attn: Marcella alvarado,[address] [place], [address], [place] [facility] 4 14:09:01 History of hip fracture 153559464 Active 2023 DORA Cristobal Attn: Marcella alvarado,[address] [place], [address], [place] [facility] 4 14:09:02 Long-term drug therapy Active 2023 DORA Cristobal Attn: Marcella alvarado,[address] [place], [address], [place] [facility] 4 14:09:03 Gastroesophage al reflux disease without esophagitis 593018671 Active 2023 DORA Cristobal Attn: Marcella alvarado,[address] [place], [address], [place] [facility] 4 14:09:04 Benign essential hypertension 7913675 Active 2023 DORA Cristobal Attn: Marcella g,[address] [place], [address], [place] [facility] 4 14:09:06 Depressive disorder 49527642 Active 2023 DORA Cristobal Attn: Marcella alvarado,[address] [place], [address], [place] [facility] 4 14:11:43 Body mass index less than 20 700276676 Active 2023 DORA Cristobal Attn: Marcella alvarado,[address], [place], [address], [facility] - [facility] 4 15:40:20 Problem Notes None recorded. Procedures Surgical History Date Name Laterality Status Provider Name and Address Organization Details Recorded Time 06/10/19 24 total replacement of hip completed Imelda Fisher [facility] 10/05/2023 15:14:49 Eye Surgery completed Imelda Fisher MA [facility] 10/05/2023 15:45:20 Tonsillectomy completed Imelda Fisher MA [facility] 10/05/2023 15:45:27 excision of bilateral fallopian tubes and ovaries completed Imelda Fisher [facility] 10/05/2023 15:45:34 Imaging Results Imaging Date Name Status [facility]Modified by [facility] Details LastModified Time 11/16/2023 DEXA completed [address]) [address] [facility], [place], [address], 11/18/2023 17:58:20 11/18/2023 DEXA completed [address] [address], [place], [address], 04/10/2024 15:26:45 12/21/2023 MAMMO, screening, digital, bilateral completed [address], [address], 04/10/2024 15:26:41 02/23/2024 US, duplex, renal artery completed [address], [place], [address], 04/10/2024 15:26:39 11/19/2022 MAMMO, screening, digital, bilateral completed BARCODE Information not available 04/19/2024 19:59:40 Procedure Notes None recorded. Medical Equipment None Reported. Allergies Allergen ID Allergen Name Allergen Category Reaction Reaction Severity Criticality Documentation Date Start Date Code Code System Note Provider Name and Address Organization Details Recorded Time 864058 Zithromax medicatio n itching Not available Not available 10/05/2023 67951 4 RxNorm Not Available Not Available Not Available 064192 Substance with sulfonami de structure and antibacte rial mechanism of action (substanc e) medicatio n Not available Not available Not available 10/05/2023 68466 8003 SNOMED Not Available Not Available Not [...] Avai lable Vitals Date Recorded Body weight Respiratory rate Body mass index (BMI) Body height Oxygen saturation Oxygen saturation in Arterial blood by Pulse oximetry Heart rate Systolic blood pressure Diastolic blood pressure Provider Name and Address Organization Details Last Updated DateTime 4 43046.3 3 g 20 /min 20.3 kg/m2 160.02 cm 98 % 98 % 76 /min 138 mm[Hg] 82 mm[Hg] Imelda Fisher MA [facility] 4 15:21:51 Date Recorded Body height Body mass index (BMI) Body weight Respiratory rate Oxygen saturation Oxygen saturation in Arterial blood by Pulse oximetry Heart rate Systolic blood pressure Diastolic blood pressure Provider Name and Address Organization Details Last Updated DateTime 4 160.02 cm 19.8 kg/m2 54490.3 5 g 20 /min 99 % 99 % 67 /min 136 mm[Hg] 82 mm[Hg] Imelda Fisher MA [facility] 4 14:38:29 Date Recorded Systolic blood pressure Diastolic blood pressure Provider Name and Address Organization Details Last Updated DateTime 03/28/2024 134 mm[Hg] 70 mm[Hg] DORA Cristobal Attn: Accounting,[address] [place], [address], [facility] 03/28/2024 14:58:04 Social History Question Answer Notes LastModified by Organizat ion Details LastModified Time Tobacco Smoking Status Never Smoker Imelda Fisher MA [facility], [facility] 10/05/2023 15:09:58 Do You Have An Advance [...] Skin Problems N Anemia N Heart Attack (PR) N Anxiety Disorder Y Diabetes N Muscle, [...] [facility] 03/27/2024 15:07:16 Pneumococcal conjugate PCV20, polysaccharide OES315 conjugate, adjuvant, PF 4 completed OLIVIA Smart, [...] SNOMED-CT Code Diagnosis ICD10 Code Diagnosis Note [id number] DORA Cristobal [facility] [employer] [address] [place] [address] 10/05/2023 15:01:02 10/05/2023 16:14:07 Hypothyroidism 06676655 E03.9 Patient is due for updated thyroid function labs, she is taking levothyrox ine 75 mcg daily Benign ess ential hypertension 4796204 I10 Blood pressure is 138/82 today. The patient is stable on amlodipine 10 mg daily Long-term drug therapy 447528866 Z79.899 All routine labs were ordered today Gastroesop hageal reflux disease without esophagitis 731376399 K21.9 Patient is stable on pantoprazo le 40 mg daily with no symptom issue of breakthrou gh History of hip fracture 045566581 Z87.81 Patient has history of repeat fracture of the hip, vitamin-D lab is ordered. She is up-to-date on DEXA scan. Hyperlipidemia 02054127 E78.5 Patient is due for updated fasting lipid panel. She is taking atorvastat in 1 mg daily from specialist Body mass index 20-24 - normal 074599113 Z68.20 Depressive disorder 3548 8737 F32.A Patient is stable on fluoxetine 20 mg daily and Wellbutrin XL 150 mg daily [id number] DORA Cristobal [facility] [address] [place] [address] 03/28/2024 14:08:02 03/28/2024 15:56:53 Benign essential hypertension 8599670 I10 Blood pressure is 134/70 today. The patient is stable on amlodipine 5 mg daily Hypothyroidism 27464700 E03.9 Patient is due for updated thyroid function labs, she is taking levothyrox ine 75 mcg daily Hyperlipidemia 88234715 E78.5 Patient is due for updated fasting lipid panel. She is taking pitavastat in 1 mg daily from specialist Depressive disorder 7419 7927 F32.A Patient is stable on fluoxetine 20 mg daily and Wellbutrin XL 150 mg daily Gastroesop hageal reflux disease without esophagitis 517419189 K21.9 Patient is stable on pantoprazo le 40 mg daily with no symptom issue of breakthrou gh Long-term drug therapy 887913094 Z79.899 All routine labs were ordered today to complete in April History of hip fracture 109966244 Z87.81 Patient has history of repeat fracture of the hip, vitamin-D lab is ordered. She is up-to-date on DEXA scan. Alkaline p hosphatase above reference range 515247116 R74.8 Check ultrasound of the liver and alk-phos isoenzymes for noted alkaline phosphatas e of 174 on previous labs Body mass index less than 20 080690717 Z68.1 BMI is 19.8 Health Concerns Section Related Observation LastModified by Organization Detai ls LastModified Time None Recorded Concern Status LastModified by Organization Details LastModified Time None Recorded Advance Directives Directive Y: Payers Encounter Date Sequence Insurance Name Policy Number Policy Contreras Covered Member ID Contreras Member ID Guarantor Name 10/05/2023 1 [employer] (MEDICARE REPLACEMENT PPO) [id number] Mercedes Morfin [id number] Mercedes Morfin 03/28/2024 1 [employer] (MEDICARE REPLACEMENT PPO) [id number] Mercedes Morfin [id number] Mercedes Morfin Notes Date Note Type Note [...] of hypothyroidism DORA Cristobal Attn: Accounting,[address] [facility], [place], [address], [facility] - [facility] 10/16/2023 14:12:18 03/28/2024 text/html Anxiety/Depressi onRe ported [...] of hypothyroidism DORA Cristobal Attn: Accounting[address] [place], [address], [facility] - [facility] 04/10/2024 15:41:06 OBGyn Episode No OBEpisode recorded.
--- OUTSIDE RECORDS SUMMARY | 2024-06-05 10:10 | XMS_ITS | Referral Summary ---
Author Organization [facility] [address] Address [address] [place] [address] Care Team Providers Care Analysis Tester Name Role Phone Tania Davis Primary Care [...] (NORVASC) 5 mg tablet 8 Active vit C,P-Rg-pdqut-stevenson tein-zeaxan [id number] ig-aavy-ue-mg capsule Take 1 capsule by mouth daily. 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 before breakfast Active calcium carbonate/vitam in D3 [...] Sjogren's syndrome 12/23/2023 ILD (interstitial lung disease) ([facility]) 2022 Immunizations Immunization Administration Dates Next Due Influenza, Unspecified 01/28/2023 [...] on file Legal Sex Female 12:10 PM PATIENT'S LIBRARIAN Gender Identity Female 06/06/2023 3:22 PM PATIENT'S LIBRARIAN Sexual Orientation Not on file Last Filed Vital Signs Vital Sign Reading Time Taken Comments Blood Pressure 129/75 06/10/2023 11:40 AM PATIENT'S LIBRARIAN Pulse 74 12/23/2023 10:19 AM CDT Temperature 36.4 C (97.6 F) 12/23/2023 10:19 AM CDT Respiratory Rate 18 12/23/2023 10:19 AM CDT Oxygen Saturation 99% 12/23/2023 10:19 AM CDT Inhaled Oxygen Concentration - - Weight 50.8 kg (112 lb) 12/23/2023 10:19 AM CDT Height 161.3 cm (5' 3.5 ) 12/23/2023 10:19 AM CD T Body Mass Index 19.53 12/23/2023 10:19 AM CDT Plan of Treatment Not on file Insurance MEDICARE SOLUTIONS [facility] MEDICARE [facility] MEDICARE Care Teams Analysis Tester Relationship Specialty Start Date End Date Tania Davis PA PCP - General Physician Spray Crew 02/08/18
--- OUTSIDE RECORDS SUMMARY | 2024-06-05 10:10 | XMS_ITS | Clinical Summary ---
Author Organization [facility] [employer] Address [address] [facility] [place] [address] Care Team Providers Care Regulation Supervisor Name Role Phone Tania Moreau Primary Care Pr ovider Source Comments [facility],non-owned Affiliates and Associated Physician Practices is amultiple site organization consisting of ambulatory clinics and hospital sitesin [place], [place], [place] and [place]. This disclosure is being madepursuant to the Care Everywhere program and may not contain all information available regarding this patient. Last updated 17.[facility] [employer] Allergies Active Allergy Reactions Criticality Noted Date [...] Morfin has been encouraged to take supplemental pcvq-cpo-fwggkkx (preferably calcium citrate) 7373-0320 mg and vitamin D3 1000 IU daily [...] performed and will try to check with [facility] pathology. Encouraged to follow up with [...] Recorded Patient Health Questionnaire-2 Score 0 09/07/2023 [facility] - [...] place to sleep or slept in a long term (including now)? No 06/23/2023 Sex and Gender [...] Description 10/23/2024 11:15 AM CDT Office Visit [facility] - Orthopedic Surgery [address] [place] [address] Braxton Wilkins MD [address] [facility] [address] [place], [place] [id number] 11/01/2024 11:20 AM CDT Office Visit [facility] - Rheumatology [address], [address] [place] [address] Caden Rodriguez DO [address] [place] [address] Health Maintenance Due Date Last Done Comments DTAP/TDAP/TD VACCINES (1 - Tdap) 08/18/1964 ZOSTER VACCINE (1 of 2) 1994 PNEUMOCOCCAL VACCINE 50+ (2 of 2 - PPSV23) 08/25/2017 08/25/2016 Respiratory Syncytial Virus (RSV) Vaccine Pt: or over 60 yrs (1 - 1-dose 75+ series) 08/18/2019 COVID-19 VACCINE (5 - season) 2023 02/15/2023, 03/18/2021, 06/30/2020, Additional history exists INFLUENZA VACCINE (#1) 2023 , 01/20/2022, 02/02/2021, Additional history exists DEPRESSION SCREENING 04/11/2024 09/07/2023 MEDICARE AWV CALENDAR YEAR 2024 BONE DENSITY TESTING Completed [...] 9:07 AM 06/29/2023 8:41 PM Care Teams Regulation Supervisor Relationship Specialty Start Date End Date Tania Moreau PA [address] [place] [address] PCP - General Physician Cnc Service Technician 11/03/23
--- OUTSIDE RECORDS SUMMARY | 2024-06-05 10:10 | XMS_ITS | Patient Health Summary ---
Author Organization [facility] Address [address] [place] [address] Care Team Providers Care Adolescent Specialist Name Role Phone Tania Moreau Primary Care Pr ovid Note from [facility],non-owned Affiliates and Associated Physician Practices is amultiple site organization consisting of ambulatory clinics and hospital sitesin [place], [place], [place] and [place]. This disclosure is being madepursuant to the Care Everywhere program and may not contain all informatio navailable regarding this patient. Last updated 17.[facility] Allergies * Azithromycin(Itching,Nausea and/or Vomiting) -Low Criticality [...] Recorded Patient Health Questionnaire-2 Score 0 09/07/2023 [facility] - Occupational [...] place to sleep or slept in a senior living (including now)? No 06/23/2023 Sex and Gender [...] around internal prosthetic right hip joint, initial encounter([facility]) * CARDIAC EKG ORDER(Performed 06/24/2023) * CBC W/O DIFFERENTIAL(Performed 06/24/2023) * BASIC METABOLIC PANEL (CALCIUM TOTAL)(Performed 06/24/2023) * XR FEMUR RIGHT 2VW(Performed 06/23/2023) Performed for Fall, initial encounter * XR PELVIS W RIGHT HIP 2VW(Performed 06/23/2023) Performed for Fall, initial encounter * COMPREHENSIVE METABOLIC PANEL(Performed 06/23/2023) * CBC W AUTO DIFFERENTIAL(Performed 06/23/2023) * EKG 12-LEAD(Performed 06/23/2023) Performed for Fall, initial encounter * CT BIOPSY OF LIP(Performed 06/18/2022) Performed for Interstitial [...] Modality Other Caden Rodriguez DO DEXA ORDERABLES * XR PELVIS [...] AM Narrative 10/19/2023 11:46 AM CDT PROCEDURE: XR PELVIS W RIGHT HIP 2VW [...] no appreciable soft tissue abnormality. Procedure Note Sabiha Ni MD - 10/19/2023 PROCEDURE: XR PELVIS [...] CDT Narrative 07/26/2023 1:58 PM CDT PROCEDURE: XR PELVIS 1 OR 2VW DATE/TIME [...] COVID-19 PCR Not detected Not detected 06/29/19 24 5:02 PM CDT [facility] Microbiology SPECIMEN FROM NASOPHARYNGEAL STRUCTURE / Unknown Collection / Unknown 06/29/2023 4:12 PM CDT 06/29/2023 4:26 PM CDT Narrative [facility] - 06/29/2023 5:02 PM CDT [...] Benjamin MD LAB - MICROBIOLOGY O RDERABLES [facility] [address], [place] [id number] * CARDIAC EKG ORDER (06/24/2023 7:56 AM CDT) Narrative 06/24/2023 7:56 AM CDT Ordered by an unspecified provider. Scanned Document CARDIAC SERVICES ORD ERABLES * (ABNORMAL) CBC W/O DIFFERENTIAL (06/24/2023 3:18 AM CDT) [facility] WBC 9.3 4.0 - 10.7 x10E9/L 06/24/2023 3:49 AM CDT [facility] RBC Count 3.81(L) 3.90 - 5.20 x10E12/L 06/24/2023 3:49 AM CDT [facility] Hemoglobin 11.5(L) 11.9 - 15.8 g/dL 06/24/2023 3:49 AM CDT [facility] Hematocrit 36.1 34.8 - 46.1 % 06/24/2023 3:49 AM CDT [facility] MCV 94.8 80.0 - 98.0 fL 06/24/2023 3:49 AM CDT [facility] MCH 30.2 26.7 - 33.6 pg 06/24/2023 3:49 AM CDT [facility] MCHC 31.9 31.7 - 36.3 g/dL 06/24/2023 3:49 AM CDT [facility] RDW-CV 13.8 11.3 - 14.8 % 06/24/2023 3:49 AM CDT [facility] Platelet Count 192 150 - 420 x10E9/L 06/24/2023 3:49 AM CDT [facility] MPV 10.4 7.8 - 11.4 fL 06/24/2023 3:49 AM CDT [facility] Blood BLOOD SPECIMEN / Unknown Lab Venipuncture / Unknown 06/24/2023 3:18 AM CDT 06/24/2023 3:32 AM CDT Therese Ordonez BASKETBALL COMMENTATOR-CHEMIST WATER PURIFICATION LAB - HEMATO LOGY ORDERABLES [facility] [address] [place] [address] * (ABNORMAL) BASIC METABOLIC PANEL (CALCIUM TOTAL) (06/24/2023 3:18 AM CDT) Glucose 91 70 - 105 mg/dL 06/24/2023 4:03 AM [facility] Sodium 136 136 - 145 mmol/L 06/24/2023 4:03 AM [facility] Potassium 4.2 3.5 - 5.1 mmol/L 06/24/2023 4:03 AM [facility] Chloride 105 98 - 107 mmol/L 06/24/2023 4:03 AM [facility] CO2 22 22 - 29 mmol/L 06/24/2023 4:03 AM [facility] Calcium 8.8 8.4 - 10.4 mg/dL 06/24/2023 4:03 AM [facility] Anion Gap 9 6 - 16 mmol/L 06/24/2023 4:03 AM [facility] BUN 23 7 - 26 mg/dL 06/24/2023 4:03 AM [facility] Creatinine 1.03 0.57 - 1.11 mg/dL 06/24/2023 4:03 AM [facility] eGFR by CKD-EPI 56(L) >=90 mL/min/1.7 3 m2 06/24/2023 4:03 AM [facility] Blood BLOOD SPECIMEN / Unknown Lab Venipuncture / Unknown 06/24/2023 3:18 AM CDT 06/24/2023 3:32 AM CDT Therese Ordonez BASKETBALL COMMENTATOR-CHEMIST WATER PURIFICATION LAB - CHEMIS TRY ORDERABLES [facility] [address] [place] [address] * XR FEMUR RIGHT 2VW (06/23/2023 3:29 AM CDT) Anatomical Region Laterality Modality Lower Extremity Radiographic Kaylan ging 06/23/2023 8:34 AM CDT Narrative 06/23/2023 8:34 AM CDT PROCEDURE: XR FEMUR RIGHT 2VW DATE/TIME OF [...] - 10.7 x10E9/L 06/23/2023 2:17 AM CDT [facility] RBC Count 4.00 3.90 - 5.20 x10E12/L 06/23/2023 2:17 AM CDT [facility] Hemoglobin 12.3 11.9 - 15.8 g/dL 06/23/2023 2:17 AM CDT [facility] Hematocrit 37.9 34.8 - 46.1 % 06/23/2023 2:17 AM CDT [facility] MCV 94.8 80.0 - 98.0 fL 06/23/2023 2:17 AM CDT [facility] MCH 30.8 26.7 - 33.6 pg 06/23/2023 2:17 AM CDT [facility] MCHC 32.5 31.7 - 36.3 g/dL 06/23/2023 2:17 AM CDT [facility] RDW-CV 13.4 11.3 - 14.8 % 06/23/2023 2:17 AM CDT [facility] Platelet Count 183 150 - 420 x10E9/L 06/23/2023 2:17 AM CDT [facility] MPV 9.9 7.8 - 11.4 fL 06/23/2023 2:17 AM CDT [facility] Neutrophil % 89.0(H) 41.0 - 74.0 % 06/23/2023 2:17 AM CDT [facility] Lymphocyte % 4.0(L) 17.0 - 47.0 % 06/23/2023 2:17 AM CDT [facility] Monocyte % 5.9 3.0 - 11.0 % 06/23/2023 2:17 AM CDT [facility] Eosinophil % 0.1 0.0 - 7.0 % 06/23/2023 2:17 AM CDT [facility] Basophil % 0.2 0.0 - 1.6 % 06/23/2023 2:17 AM CDT [facility] Immature Granulocytes % 0.8 0.0 - 1.0 % 06/23/2023 2:17 AM CDT [facility] Neutrophil Absolute 10.11(H) 1.60 - 7.50 x10E9/L 06/23/2023 2:17 AM CDT [facility] Lymphocyte Absolute 0.45(L) 1.00 - 4.40 x10E9/L 06/23/2023 2:17 AM CDT [facility] Monocyte Absolute 0.67 0.15 - 1.00 x10E9/L 06/23/2023 2:17 AM CDT [facility] Eosinophil Absolute 0.01 0.00 - 0.60 x10E9/L 06/23/2023 2:17 AM CDT [facility] Basophil Absolute 0.02 0.00 - 0.13 x10E9/L 06/23/2023 2:17 AM CDT [facility] Blood BLOOD SPECIMEN / Unknown Venipuncture / Unknown 06/23/2023 2:15 AM CDT 06/23/2023 2:15 AM CDT Alberto Palacio MD LAB - HEMATOLOGY ORD ERABLES [facility] [address] [place] [address] * (ABNORMAL) COMPREHENSIVE METABOLIC PANEL (06/23/2023 2:15 AM CDT) Glucose 121(H) 70 - 105 mg/dL 06/23/2023 2:36 AM CDT [facility] Sodium 138 136 - 145 mmol/L 06/23/2023 2:36 AM CDT [facility] Potassium 4.3 3.5 - 5.1 mmol/L 06/23/2023 2:36 AM CDT [facility] Chloride 105 98 - 107 mmol/L 06/23/2023 2:36 AM CDT [facility] CO2 24 22 - 29 mmol/L 06/23/2023 2:36 AM CDT [facility] Calcium 9.1 8.4 - 10.4 mg/dL 06/23/2023 2:36 AM CDT [facility] Anion Gap 9 6 - 16 mmol/L 06/23/2023 2:36 AM CDT [facility] BUN 16 7 - 26 mg/dL 06/23/2023 2:36 AM CDT [facility] Creatinine 0.98 0.57 - 1.11 mg/dL 06/23/2023 2:36 AM CDT [facility] Alkaline Phosphatase 133 40 - 150 U/L 06/23/2023 2:36 AM CDT [facility] ALT 25 0 - 55 U/L 06/23/2023 2:36 AM CDT [facility] AST 29 5 - 34 U/L 06/23/2023 2:36 AM CDT [facility] Protein Total 7.4 6.4 - 8.3 gm/dL 06/23/2023 2:36 AM CDT [facility] Albumin 3.5 3.4 - 5.0 gm/dL 06/23/2023 2:36 AM CDT [facility] Bilirubin Total 0.6 0.2 - 1.2 mg/dL 06/23/2023 2:36 AM CDT [facility] eGFR by CKD-EPI 59(L) >=90 mL/min/1.7 3 m2 06/23/2023 2:36 AM CDT [facility] Blood BLOOD SPECIMEN / Unknown Venipuncture / Unknown 06/23/2023 2:15 AM CDT 06/23/2023 2:15 AM CDT Alberto Palacio MD LAB - CHEMISTRY ORDHu NGUYỄN Performing Organization Address [facility] Co de Phone Number [facility] [address] [place] [address] * EKG 12-LEAD (06/23/2023 2:06 AM CDT) Ventricular Rate 85 BPM [facility] Atrial Rate 85 BPM [facility] P-R Interval 160 ms [facility] QRS Duration ms 62 ms [facility] Q-T Interval ms 374 ms [facility] QTC Calculation (Bezet) 445 ms [facility] Calculated P Hoople 63 degrees [facility] Calculated R Hoople 44 degrees [facility] Calculated T Hoople 67 degrees [facility] Interpretation EKG NORMAL SINUS RHYTHM NONSPECIFIC ST ABNORMALITY ABNORMAL ECG NO PREVIOUS ECGS AVAILABLE Confirmed by Roberto Pereira MD ([id number]) on 06/23/2023 8:09:53 AM [facility] 06/23/2023 2:06 AM CDT 06/23/2023 8:09 AM CDT Alberto Palacio MD ECG ORDERABLES Performing Organization Address City/[facility]/ZIP Co de Phone Number [facility] * CT BIOPSY OF LIP (06/18/2022 12:42 PM SECRETARY SPECIALIST) Narrative Jose Esteban MD - 06/18/2022 12:42 PM SECRETARY SPECIALIST Jose Esteban MD 06/18/2022 7:30 PM Procedure: Minor Salivary Gland Biopsy Indications: Salivary gland swelling, sicca symptoms, concern for autoimmune disease Procedure in Detail: Informed consent was obtained. Lidocaine with epi was injected into the planned site of biopsy. An incision was made in the mucosa of the red lip and several minor salivary glands were removed for pathology. Hemostasis was attained with silver nitrate cautery. The incision was closed with interrupted 4-0 chromic. The patient tolerated the procedure well. Findings: Approximately 6 minor salivary glands removed and sent for permanent pathology. For all procedures, attending was present and performed the shaffer portions of the procedure. Jose Esteban MD PROCEDURE/MINOR S URGICAL ORDERABLES * PATHOLOGY TISSUE (06/18/2022 11:50 AM SECRETARY SPECIALIST) Case Report Surgical Pathology Report Case: [id number] Authorizing Provider: Jose Esteban MD Collected: 06/18/2022 11:50 AM Ordering Location: [facility] Received: 06/21/2022 03:03 PM Pathologist: Amanda Wynn Mai, DO Specimen: Lip, lower lip biopsy 07/07/2022 9:41 AM [facility] Final Diagnosis Lower lip, biopsy (A): - Benign salivary glands, nerve and muscle - No significant increase in chronic inflammation, Focus score= 0 07/07/2022 9:41 AM [facility] Microscopic Description and Comment Sections [...] clinical findings is required. 07/07/2022 9:41 AM CDT [facility] Clinical History The patient is a 76 year old female with PMH s/f OA s/p R hip replacement, renar artery stenosis s/p stent who presents with 1) s/p minor salivary biopsy 06/18/22 2) chronic xerostomia, positive EDVI without current diagnosis, concerning for Sjogren's disease or disorder 07/07/2022 9:41 AM [facility] Gross Description The requisition and specimen(s) are identified with the patient's name Mercedes Morfin. Received in formalin, specimen A , are 6 chatterjee-brown tissues, 0.2-0.3 cm in greatest dimension and 1.3 x 0.2 x 0.2 cm in aggregate, submitted in toto in cassette A1. DF 07/07/2022 9:41 AM T [facility] Addendum 1 In the absence of significant numbers of plasma cells in this biopsy, a ratio of IgG4 positive cells to IgG positive cells will not be statistically significant or clinically interpretable. 07/07/2022 9:41 AM [facility] Addendum electronically signed by Suad Bucio MD on 07/07/2022 at 9:41 AM Disclaimer The performance characteristics of all immunohistochemical and indirect immunofluorescence stains (if any) cited in this report were determined by the Histopathology Laboratory of [facility]. Some of these tests were developed [...] the attending (teaching) pathologist. 07/07/2022 9:41 AM [facility] Embedded Images 07/07/2022 9:41 AM T [facility] Pathology/Cytolo gy ENTIRE LIP / Unknown Collection / Unknown 06/18/2022 11:50 AM SECRETARY SPECIALIST 06/21/2022 3:03 PM CDT Comment:Lower lip salivary g land biopsy Jose Esteban MD LAB - PATHOLOGY/C YTOLOGY ORDERABLES [facility] [address] [place], [place] [address] [phone] * LAB (03/01/2022) Only the most recent of2 resultswithin the time period is included. Caden Rodriguez DO SCANNING ONLY Care Teams Adolescent Specialist Relationship Specialty Start Date End Date Tania Moreau PA [address] [place] [address] PCP - General Physician Stencil Machine Operator 11/03/23
--- OUTSIDE RECORDS SUMMARY | 2024-06-05 10:10 | XMS_ITS | Clinical Summary ---
Author Organization [facility] [address] Address [address] [place] [address] Care Team Providers Care Finisher Hand Name Role Phone Tania Davis Primary Care [...] (NORVASC) 5 mg tablet 8 Active vit C,C-Dw-sitrz-stevenson tein-zeaxan [id number] vd-kxkc-ak-mg capsule Take 1 capsule by mouth daily. Active diphenhydrAMINE (BENADRYL) 25 mg capsule Take 1 tablet/capsule (25 mg total) by mouth every 6 (six) hours as needed for itching Active levothyroxine (SYNTHROID) 75 mcg tablet Take 1 tablet (75 mcg total) by mouth airline mechanic before breakfast Active calcium carbonate/vitam in D3 [...] Sjogren's syndrome 12/23/2023 ILD (interstitial lung disease) ([facility]) 2022 Immunizations Immunization Administration Dates Next Due [...] on file Legal Sex Female 12:10 PM CATERERS HELPER Gender Identity Female 06/06/2023 3:22 PM CATERERS HELPER Sexual Orientation Not on file Obstetrics History Last Filed Vital Signs Vital Sign Reading Time Taken Comments Blood Pressure 129/75 06/10/2023 11:40 AM CATERERS HELPER Pulse 74 12/23/2023 10:19 AM CDT Temperature [...] 65+ Completed 05/04/2023, 08/09 Insurance MEDICARE SOLUTIONS T MEDICARE T MEDICARE Care Teams Finisher Hand Relationship Specialty Start Date End Date Tania Davis PA PCP - General Physician Ammonia Solution Preparer 02/08/18
== END 2024-06-05 09:19 | disposition home or self-care (01) ==
PROVIDERS: PCP Physician Assistant; Visit Provider Physician Assistant
DX: R74.8 Abnormal levels of other serum enzymes (principal)
CPT/HCPCS: 76705

== ENCOUNTER 2024-10-15 07:07 | Outpatient (CLI) | payer MEDICARE, SELFPAY ==
--- OUTSIDE RECORDS SUMMARY | 2024-10-15 07:11 | XMS_ITS | Encounter Summary ---
Author Organization [facility] Address [address] [place] [address] Care Team Providers Care Regional Maintenance Manager Name Role Phone Patricia Vaca APRN-NEUROSCIENCE SPECIALIST Primary Care Prov ider Unavailable Tania Moreau Primary Care Pr ovider Tania Moreau Primary Care Pr ovider Encounter Details Date Type Department Care Team (Late Contact Info) Description 02/02/2022 Telephone [facility] - Third Level [address] [place] [address], [place] [address] Primo Yanez MD [address] [place] [address] [place] [address] Social History Tobacco Use Types Packs/Day Years Used Date Smoking Tobacco: Never Assessed Comments Unknown Sex and Gender Information Value Date Recorded Sex Assigned at Not on file Legal Sex Female 1:40 PM CDT Gender Identity Not on file Sexual Orientation Not on file documented as of this encounter Plan of Treatment Upcoming Encounters Date Type Department Care Team (Late Contact Info) Description 10/31/2024 12:40 PM CDT Office Visit [facility] - Rheumatology [address], [address] [place] [address] Caden Rodriguez DO [address] [place] [address] 09/11/2025 1:30 PM CDT Office Visit [facility] - Orthopedic Surgery [address] [place] [address] Braxton Wilkins MD [address] [place] [address] documented as of this encounter Visit Diagnoses Not on filedocumented in this encounter Additional Health Concerns Infection Onset Date Last Indicated Resolved Time COVID-19 Under Investigation 06/29/2023 06/29/2023 06/29/2023 5:02 PM CDT documented as of this encounter Care Teams Regional Maintenance Manager Relationship Specialty Start Date End Date Patricia Vaca APRN-COLLEEN Update Information PCP - General 02/01/22 02/24/22 Tania Moreau PA [address] [place] [address] PCP - General Physician Manager Sharepoint 02/25/22 05/20/22 Tania Moreau PA [address] [place] [address] PCP - General Physician Manager Sharepoint 11/03/23 documented as of this encounter
--- OUTSIDE RECORDS SUMMARY | 2024-10-15 07:11 | XMS_ITS | Data Portability ---
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 mammogram 12/21/23 dexa scan 11/18/23 Not available 09/26/2024 14:17:29 Plan of Treatment Reminders Order Date Submit Date Provider Last Modified By Organization Details Last Modified Time Details Appointments MEDICARE WELLNESS VISIT 2024 02:15P M DORA Cristobal Not available Not available Not available Lab CBC w/ auto diff [address] [facility], [address] [place] [address], [id number], 09/26/2024 14:37:06 hepatic function panel, serum [address] [facility], [facility] [address], [address], 09/26/2024 14:37:06 BMP, serum or plasma [address] [facility], [address] [place] [address], [id number], 09/26/2024 14:37:06 lipid panel, serum [address] [facility], [address] [place] [address], [id number], 09/26/2024 14:37:06 TSH + free T4, serum [address] [facility], [address] [place] [address], [id number], 09/26/2024 14:37:06 alkaline phosphata se isoenzyme s, serum or plasma [address] [facility], [address] [place] [address], [id number], 05/09/2024 16:40:07 CBC w/ auto diff 2023 025 [facility], [address] [place] [address], [id number], 05/07/2024 16:01:28 hepatic function panel, serum 2023 025 [facility], [address] [place] [address], [id number], 05/07/2024 15:59:16 BMP, serum or plasma 2023 025 [facility], [address] [place] [address], [id number], 05/07/2024 16:00:01 lipid panel, serum 2023 025 [facility], [address] [place] [address], [id number], 05/07/2024 16:01:51 vitamin D, 25-hydrox y, total, serum 2023 025 [facility], [address] [place] [address], [id number], 05/07/2024 16:01:24 TSH + free T4, serum 2023 025 [facility], [address] [place] [address], [id number], 05/07/2024 16:01:00 CBC w/ auto diff 2023 024 [facility], [address] [place] [address], [id number], 10/21/2023 09:51:03 hepatic function panel, serum [address] [facility], [address] [place] [address], [address], 11/18/2023 11:53:30 BMP, serum or plasma [address] [facility], [address] [place] [address], [id number], 11/23/2023 11:35:58 vitamin B12 + folate, serum or blood 2023 024 [facility], [address] [place] [address], [id number], 10/21/2023 12:08:24 lipid panel, serum 2023 024 [facility], [address] [place] [address], [address], 10/21/2023 12:08:24 vitamin D, 25-hydrox y, total, serum 2023 024 [facility], [address] [place] [address], [id number], 11/16/2023 12:09:34 TSH + free T4, serum [address] [facility], [address], [place], [address], 11/23/2023 11:35:58 Referral None recorded. Procedures None recorded. Surgeries None recorded. Imaging US, liver - also comment on gallbladd er 2023 024 [facility] (Imaging), [address], [place], [address], 06/05/2024 15:58:33 Medication Orders triamcino lone acetonide 0.1 % topical cream 2024 025 [id number], [address] [place], [address], 09/26/2024 14:39:56 Patient TargetsNo targets recorded. Patient Instructions Encounter Date Encounter Id Patient Instructions Last Modified By Organization Details Last Modified Time 09/26/2024 [id number] A healthy lifestyle: care instructions Not available 09/26/2024 14:37:06 Reason for Referral None Reported. Results Created [...] of 10,00 0 indiv idual s at [facility] risk for color ectal cance r who were scree alvaro with both Colog uard and colon oscop y. (Anayae ravindra T. et al, N Engl J Med 2014; 370(1 4):12 86-12 97) The alonzo l value (refe rence range ) for this assay is negat rosalina. COLOG UARD RE-SC REENI NG RECOM MENDA TION: Perio dic color ectal cance r scree blanca is an impor tant part of preve ntive healt hcare for asymp tomat ic indiv idual s at [facility] risk for color ectal cance r. Follo [...] Color ectal Cance r Scree blanca: https ://tiago w.can cer.o rg/ca ncer/ colon -rect al-ca ncer/ detec tion- diagn osis- stagi ng/ac s-rec ommen datio ns.ht ml.; Jesús DK, Javid walls CR, Alirio BurkK, Color ectal Cance r Scree blanca: Recom menda tions for Physi cians and Patie nts from the [place]. Multi -Soci ety Task Force on Color ectal Cance r Scree blanca , Am Wm diaz y 2017; 112:1 016-1 030. TEST DESCR IPTIO N: [place] site algor ithmi c arely sis of [...] years or older , who are at [facility] sk for color ectal cance r (CRC) . Colog uard has been appro kobe for use by the [place]. FDA. The perfo rmanc e of Colog uard was estab lishe d in a cross secti onal study of [place] adult s aged 50-84 . Colog uard perfo rmanc e in patie nts ages 45 to 49 years was estim ated by sue-g julius arely sis of near- age group s. [...] study of 0 indiv idual s at [facility] risk for color ectal cance r who [...] found at www.pravin vo.pravin om. Not Available [facility] (Cologuard Orders Only) [address], [place], [address], 03/30/2024 21:21:26 11/18/19 24 11/16/2023 DEXA No observ ation record ed. [address]) [address] [facility], [place], [address], 11/18/2023 17:58:20 11/22/19 24 11/18/2023 DEXA No observ ation record ed. [address] [facility] [address], [place], [address], 04/10/2024 15:26:45 12/22/19 24 12/21/2023 MAMMO , scree blanca, digit al, bilat eral No observ ation record ed. [address] [facility], [place], [address], 04/10/2024 15:26:41 02/23/20 24 02/23/2024 US, duple x, renal arter y No observ ation record ed. [address] [address], [place], [address], 04/10/2024 15:26:39 04/19/19 25 11/19/2022 MAMMO , scree blanca, digit al, bilat eral No observ ation record ed. BARCODE Not Available 2024 19:59:40 06/05/19 25 06/05/2024 US, liver No observ ation record ed. [address], [place], [address], 06/06/2024 10:42:37 Result Notes None recorded. Problems Name Problem SNOMED Code Status Onset Date Resolution Date Notes Provider Name and Address Organization Details Recorded Time Hypertensive disorder 59768073 Active 2023 Concepciónnikki Aguilera null, [place] - [facility] 4 10:22:26 Hypothyroidism 13539483 Active 2023 Concepción [place] [facility] 4 10:22:33 Gastroesophage al reflux disease 067442664 Active 2023 Concepción [place] [facility] 4 10:22:37 Hyperlipidemia 02516482 Active 2023 DORA Cristobal Attn: Accountin g,[address] [facility], [place], [address], [place] - [facility] 4 15:44:30 Body mass index 20-24 - normal 241469966 Active 2023 DORA Cristobal Attn: Accountin g,[address] [facility], [place], [address], [place] [facility] 4 14:09:01 History of hip fracture 634365303 Active 2023 DORA Cristobal Attn: Accountin g,[address] [facility], [place], [address], [place] [facility] 4 14:09:02 Long-term drug therapy Active 2023 DORA Cristobal Attn: Accountin g,[address] [facility], [place], [address], [place] [facility] 4 14:09:03 Gastroesophage al reflux disease without esophagitis 772395436 Active 2023 DORA Cristobal Attn: Accountin g,[address] [facility], [place], [address], [place] [facility] 4 14:09:04 Benign essential hypertension 0996790 Active 2023 DORA Cristobal Attn: Accountin g,[address] [place], [address], [place] [facility] 4 14:09:06 Depressive disorder 06215708 Active 2023 DORA Cristobal Attn: Marcella g,[address], [place], [address], [facility] - [facility] 4 14:11:43 Body mass index less than 20 854167759 Active 2023 DORA Cristobal Attn: Marcella g,[address], [place], [address], [facility] - [facility] 4 15:40:20 Alkaline phosphatase above reference range 957603925 Active 2024 DORA Cristobal Attn: Marcella g,[address], [place], [address], [facility] - [facility] 5 13:38:44 Problem Notes None recorded. Procedures Surgical History Date Name Laterality Status Provider Name and Address Organization Details Recorded Time 06/10/19 24 total replacement of hip completed Imelda Fisher MA [facility] 10/05/2023 15:14:49 Eye Surgery completed Imelda Fisher MA [facility] 10/05/2023 15:45:20 Tonsillectomy completed Imelda Fisher MA [facility] 10/05/2023 15:45:27 excision of bilateral fallopian tubes and ovaries completed Imelda Fisher MA [facility] 10/05/2023 15:45:34 Imaging Results None recorded. Procedure Notes None recorded. Medical Equipment None Reported. Allergies Allergen ID Allergen Name Allergen Category Reaction Reaction Severity Criticality Documentation Date Start Date Code Code System Note Provider Name and Address Organization Details Recorded Time 093738 Zithromax medicatio n itching Not available Not available 10/05/2023 4 RxNorm OLIVIA Smart [facility] 15:08:16 [id number] Substance with sulfonami de structure and antibacte rial mechanism of action (substanc e) medicatio n Not available Not available Not available 10/05/2023 63357 8003 SNOMED OLIVIA Smart [facility] 15:08:22 Medications Name Sig Start Date Stop Date Status Note LastModified by Organization Details LastModified Time amlodipine 5 mg tablet TAKE 1 TABLET BY MOUTH EVERY DAY active Not Available Not Available No t Available triamcinolo ne acetonide 0.1 % topical cream APPLY A THIN LAYER TO THE AFFECTED AREAS OF FACE BY TOPICAL ROUTE 2 TIMES PER DAY active Not Available Not Available No t Available amoxicillin 500 mg tablet TAKE 4 TABLET BY MOUTH 1 HOUR PRIOR TO APPOINTME NT 03/28 completed Not Available Not Available Not Available levothyroxi ne 75 mcg tablet TAKE 1 TABLET BY MOUTH EVERY DAY active Not Available Not Available No t Available amlodipine 10 mg tablet 03/28 completed Not Available Not Available Not Available pantoprazol e 40 mg tablet,matheus yed release Take 1 tablet every day by oral route for 90 days. active Not Available Not Available No t Available fluoxetine 10 mg capsule TAKE 3 CAPSULE BY MOUTH EVERY DAY active Not Available Not Available No t Available fluoxetine 20 mg capsule Take by oral route for 14 days. 03/28 completed Not Available Not Available Not Available ezetimibe 10 mg tablet TAKE 1 TABLET BY MOUTH EVERY DAY active Not Available Not Available No t Available bupropion HCl XL 150 mg 24 hr tablet, extended release TAKE 1 TABLET BY MOUTH EVERY DAY active Not Available Not Available No t Available chlorhexidi ne gluconate 0.12 % mouthwash PLEASE SEE ATTACHED FOR DETAILED DIRECTION S 10/04 completed Not Available Not Available Not Available pitavastati n calcium 1 mg tablet TAKE 1 TABLET BY MOUTH EVERY DAY active Not Available Not Available No t Available Vitals Date Recorded Systolic And Diastolic Provider Name and Address Organization Details Last Updated DateTime 09/26/2024 130/80 mm[Hg] DORA Cristobal Attn: Accounting,[address] [place], [address], [place] - [facility] 09/26/2024 14:37:28 Date Recorded Body height Body mass index (BMI) Body weight Oxygen saturation Oxygen saturation in Arterial blood by Pulse oximetry Heart rate Respiratory rate Systolic And Diastolic Provider Name and Address Organization Details Last Updated DateTime 5 160.02 cm 18.4 kg/m2 83248.6 1 g 98 % 98 % 74 /min 20 /min 120/78 mm[Hg] Imelda Fisher [place] - [facility] 5 14:13:05 Date Recorded Body weight Respiratory rate Body mass index (BMI) Body height Oxygen saturation Oxygen saturation in Arterial blood by Pulse oximetry Heart rate Systolic And Diastolic Provider Name and Address Organization Details Last Updated DateTime 4 25839.3 3 g 20 /min 20.3 kg/m2 160.02 cm 98 % 98 % 76 /min 138/82 mm[Hg] Imelda Fisher MA [facility] 4 15:21:51 Date Recorded Systolic And Diastolic Provider Name and Address Organization Details Last Updated DateTime 03/28/2024 134/70 mm[Hg] DORA Cristobal Attn: Accounting,[address] [place], [address], [facility] 03/28/2024 14:58:04 Date Recorded Body height Body mass index (BMI) Body weight Respiratory rate Oxygen saturation Oxygen saturation in Arterial blood by Pulse oximetry Heart rate Systolic And Diastolic Provider Name and Address Organization Details Last Updated DateTime 4 160.02 cm 19.8 kg/m2 32328.3 5 g 20 /min 99 % 99 % 67 /min 136/82 mm[Hg] Imelda Fisher MA [facility] 4 14:38:29 Social History Question Answer Notes LastModified by Organizat ion Details LastModified Time Tobacco Smoking Status Never Smoker Imelda Fisher MA null, [facility] 10/05/2023 15:09:58 Do You Have An Advance Directive? Yes Information not available 10/05/2023 Are You Blind [...] Date Of Your Most Recent Tobacco Screening? 09/26/2024 Information not available 09/26/2024 What Is Your Relationship Status? Information not available 10/05/2023 Do You Use Your Seat Belt Or Car Seat Routinely? Yes Information not available 10/04/2023 Do You Have Smoke And Carbon Monoxide Detectors In Your Home? Yes Information not available 10/04/2023 Do You Use Sunscreen Routinely? No Information not available 10/05/2023 Has Tobacco Cessation Counseling Been Provided? Yes Information not available 10/04/2023 On What Date Was Tobacco Cessation Counseling Provided? 09/26/2024 Information not available 09/26/2024 Sex: Female Functional Status Question Answer Note LastModified by [employer] ion Details LastModified Time Do you use any illicit or recreational drugs? No Information not available 10/05/2023 Do you or have you ever used any other forms of tobacco or nicotine? No Information not available 10/05/2023 What is your level of alcohol consumption? Occasional Information not available 10/05/2023 Are you able to care for yourself? [...] Skin Problems N Anemia N Heart Attack (AL) N Anxiety Disorder Y Diabetes N Muscle, [...] [facility] 03/27/2024 15:07:16 Pneumococcal conjugate PCV20, polysaccharide [id number] conjugate, adjuvant, PF 4 completed OLIVIA Smart, [...] Influenza, split virus, quadrivalent, PF 1 completed Imelda Fisher [place] null, [place] - [facility] 03/27/2024 15:07:16 COVID-19, mRNA, LNP-S, PF, 50 mcg/0.5 mL 4 completed Not Available [facility] 09/26/2024 14:03:46 zoster recombinant 4 completed Not Available [facility] 09/26/2024 14:03:46 Influenza, high-dose, trivalent, PF 4 completed Not Available [facility] 09/26/2024 14:03:46 Past Encounters Encounter ID Performer Location Encounter Start Date Encounter Closed Date Diagnosis/Indication Diagnosis SNOMED-CT Code Diagnosis ICD10 Code Diagnosis Note [id number] Lupillo Ravi MD [facility] [employer] [address] [place] [address] 10/05/2023 15:01:02 10/05/2023 16:14:07 Hypothyroidism 60317005 E03.9 Patient is due for updated thyroid function labs, she is taking levothyrox ine 75 mcg daily Benign ess ential hypertension 7766478 I10 Blood pressure is 138/82 today. The patient is stable on amlodipine 10 mg daily Long-term drug therapy 899694369 Z79.899 All routine labs were ordered today Gastroesop hageal reflux disease without esophagitis 386010045 K21.9 Patient is stable on pantoprazo le 40 mg daily with no symptom issue of breakthrou gh History of hip fracture 150714346 Z87.81 Patient has history of repeat fracture of the hip, vitamin-D lab is ordered. She is up-to-date on DEXA scan. Hyperlipidemia 57096109 E78.5 Patient is due for updated fasting lipid panel. She is taking atorvastat in 1 mg daily from specialist Body mass index 20-24 - normal 204693922 Z68.20 Depressive disorder 3548 9007 F32.A Patient is stable on fluoxetine 20 mg daily and Wellbutrin XL 150 mg daily [id number] Lupillo Ravi MD [facility] [employer] [address] [place] [address] 03/28/2024 14:08:02 03/28/2024 15:56:53 Benign essential hypertension 6389318 I10 Blood pressure is 134/70 today. The patient is stable on amlodipine 5 mg daily Hypothyroidism 02891631 E03.9 Patient is due for updated thyroid function labs, she is taking levothyrox ine 75 mcg daily Hyperlipidemia 91223682 E78.5 Patient is due for updated fasting lipid panel. She is taking pitavastat in 1 mg daily from specialist Depressive disorder 3908 3657 F32.A Patient is stable on fluoxetine 20 mg daily and Wellbutrin XL 150 mg daily Gastroesop hageal reflux disease without esophagitis 582560267 K21.9 Patient is stable on pantoprazo le 40 mg daily with no symptom issue of breakthrou gh Long-term drug therapy 707172180 Z79.899 All routine labs were ordered today to complete in April History of hip fracture 863272628 Z87.81 Patient has history of repeat fracture of the hip, vitamin-D lab is ordered. She is up-to-date on DEXA scan. Alkaline p hosphatase above reference range 415187368 R74.8 Check ultrasound of the liver and alk-phos isoenzymes for noted alkaline phosphatas e of 174 on previous labs Body mass index less than 20 095997373 Z68.1 BMI is 19.8 [id number] Lupillo Ravi MD [address] [id number] [facility] [address] [place] [address] 09/26/2024 14:01:14 09/26/2024 14:52:48 Body mass index less than 20 010034574 Z68.1 BMI is 18.4. Patient has lost some weight and we will continue to monitor this labs are due again in October Benign ess ential hypertension 9349653 I10 Blood pressure is 130/80. The patient is stable on amlodipine 5 mg daily Hypothyroidism 79727689 E03.9 Patient is due for updated thyroid function labs, she is taking levothyrox ine 75 mcg daily Hyperlipidemia 10029808 E78.5 Patient is due for updated fasting lipid panel. She is taking pitavastat in 1 mg daily and Zetia 10 mg daily from specialist Depressive disorder 8387 3524 F32.A Patient is stable on fluoxetine 20 mg daily and Wellbutrin XL 150 mg daily Gastroesop hageal reflux disease without esophagitis 719720939 K21.9 Patient is stable on pantoprazo le 40 mg daily with no symptom issue of breakthrou gh Long-term drug therapy 035413857 Z79.899 CBC liver and kidney panels due in October History of hip fracture 105162505 Z87.81 Patient has history of repeat fracture of the hip, vitamin-D lab is ordered. She is up-to-date on DEXA scan. Alkaline p hosphatase above reference range 195052777 R74.8 Alkaline phosphatas e isoenzymes and liver ultrasound stable Irritant c ontact dermatitis 683836664 L24.9 Refill on steroid cream to use on the dermatitis patch on her right cheek area unknown cause Health Concerns Section Related Observation LastModified by Organization Detai ls LastModified Time None Recorded Concern Status LastModified by Organization Details LastModified Time None Recorded Advance Directives Directive Y: Payers Insurance Date Sequence Insurance Name Policy Number Policy Contreras Covered Member ID Contreras Member ID Guarantor Name 10/08/2024 1 [employer] (MEDICARE REPLACEMENT/ ADVANTAGE - PPO) [id number] Mercedes Morfin [id number] Mercedes Morfin 09/26/2024 1 [employer] (MEDICARE REPLACEMENT/ ADVANTAGE - PPO) Mercedes Morfin [id number] Mercedes Morfin Notes Date Note Type Note [...] of hypothyroidism DORA Cristobal Attn: Accounting,[address] [place], [address], [facility] 10/16/2023 14:12:18 03/28/2024 [...] of hypothyroidism DORA Cristobal Attn: Accounting[address] [place], [address], [facility] - [facility] 04/10/2024 15:41:06 09/26/2024 text/html Anxiety/Depressi onRe ported bypatient.Notes:stab le on [...] changing Duration:constant Onset/Timing:still present Context:history of hypothyroidism Patient is having some balancing gait weakness in which she has fallen several times and so her orthopedic has her newly put into physical therapy for gait training and strengthening. DORA Cristobal Attn: Accounting[address] [place], [address], [facility] - [facility] 10/08/2024 13:39:36 OBGyn Episode No OBEpisode recorded.
--- OUTSIDE RECORDS SUMMARY | 2024-10-15 07:11 | XMS_ITS | Patient Health Record ---
Author Organization [facility] santi Address [address] [place] [address] Support Name Relationship Address Phone Mercedes Morfin Guarantor Unknown [phone] Reason For Referral No Information Medications Medication SIG (Take, Route, Frequency, Duration) Notes Start Date End Date Status Ocuvite Adult 50+ per eye doctor Oral 08/27/2010 Active Biotin Maximum Strength 40679 MCG 1 qd Oral Active Aspirin 81 MG 1 Every Day Oral 10/11/2005 Active Caltrate 600mg once daily in addition to other calcium *Reorder from [employer] for eRx and Interaction Alerts* 08/27/2010 Active Centrum Silver 1 Every Day Oral 10/11/2005 Active Immunizations Vaccine Route Administration Date Status Comme nts Infuenza, trivalent, recombinant, preservative free Unknown 12/29/2009 Administered migrated LegPatid= [id number] Date=02/17/1999 Vac= Influenza Infuenza, trivalent, recombinant, preservative free Unknown 02/08/[address] [facility] [phone] Infuenza, trivalent, recombinant, preservative free Unknown 01/12/2014 Administered wal Infuenza, trivalent, recombinant, preservative free Unknown 01/02/2015 Administered [facility] [phone] Pneumococcal conjugate PCV 13 Unknown 01/09/2010 Administered migrated LegPatid= [id number] Date=01/09/2010 Vac= pneumococcal Pneumococcal conjugate PCV 13 IM Intramuscular 03/25/2014 Administered Pneumococcal conjugate PCV 13 IM Intramuscular 03/26/2015 Administered Tdap Unknown 09/29/2006 Administered migrated LegPatid= [id number] Date=09/29/2006 Vac= Tdap Problems Problem Type SNOMED Code ICD Code Onset Dates Problem Status W/U Status Risk Notes Problem Pathological fractur e of vertebra (disorder) (730827302) 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 Getting EDWARD, sees medical claims analyst for osteopenia and saw pain management Problem Major depression, single episode (71575580) Major depressive disorder, single episode, unspecified (F32.9) Active confirmed 03/23/2013 - Dr Gonzalez is moving sees Dr Gonzalez, on wellbutrin/p rozac Problem Allergic rhinitis (85099492) Allergic rhinitis, unspecified (J30.9) 2005 Active confirmed all year, Zyrte Problem Gastro-esophageal reflux disease with esophagitis (458017208) Gastro-esophag eal reflux disease with esophagitis (K21.0) 2011 Active confirmed 02/16/2012 on omeprazole, Step down to Zantac (osteopenia) Problem Low back pain (849865984) Low back pain (M54.5) 2005 Active confirmed Problem Disorder of bone (49752317) Other specified disorders of bone density and structure, unspecified site (M85.80) 2006 Active confirmed compression fracture L2-3 11/2011, took Fosamax 5-10 yrs per medical claims analyst, Off in 2009 Problem Chronic kidney disease stage 3 (disorder) (440155903) Chronic kidney disease, stage 3 (moderate) (N18.3) Active confirmed ., no renal US yet Problem SI - Stress incontinence (33331421) Stress incontinence (female) (male) (N39.3) 2005 Active confirmed urge incontinence , meds caused dry mouth, per urologist Problem Palpitations (20349543) Palpitations (R00.2) 2005 Active confirmed resolved Problem Amnesia (29832465) Other amnesia (R41.3) 2014 Active confirmed Problem Elevated levels of transaminase & lactic acid dehydrogenase (851913783) Nonspecific elevation of levels of transaminase and lactic acid dehydrogenase [LDH] (R74.0) Active confirmed ast alt 36/41 Problem Pure hypercholesterolemia (950462522) Pure hypercholester olemia, unspecified (E78.00) Active confirmed 09/15/2012 - 93/50/60 no meds red yeast rice 02/21/2012 - 187/50/72, none, Diet, etc, consider medication Plan Of Treatment No Information Insurance Providers Payer Name Payer Address Payer Phone Subscriber Number Group Number Insured Name Patient Relationship to Insured Coverage Start Date Coverage End Date DO NOT USE - [employer] [address] [address] [place], [place] [id number] Mercedes Morfin Self - patient is the insured 4 [employer] [place] [address] [place] [address] [id number] Mercedes Morfin Self - patient is the insured 2 [employer] [address] [place], [place] [phone] [id number] Mercedes Morfin Self - patient is the insured 2 Medical (General) History Surgical History Surgery Date(Month/Year) T&A: as a child; 2012-02-16 Tubal ligation: laparoscopic by cautery; 2012-02-16
--- OUTSIDE RECORDS SUMMARY | 2024-10-15 07:11 | XMS_ITS | Clinical Summary ---
Author Organization [facility] [address] Address [address] [place] [address] Care Team Providers Care Reject Opener Name Role Phone EllasimoneTania Primary Care Pr ovider Allergies Active Allergy [...] (NORVASC) 5 mg tablet 8 Active vit C,Y-Mv-zsonf-stevenson tein-zeaxan 389-334-98-1 to-vmvm-jp-mg capsule Take 1 capsule by mouth daily. 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 Active calcium carbonate/vitam in D3 [...] 5-6-150 mg capsule Take by mouth Active pantoprazole DR (PROTONIX) 40 mg EC tablet Take 1 tablet (40 mg total) by mouth as needed Active ezetimibe (ZETIA) 10 mg tablet TAKE 1 TABLET BY MOUTH EVERY DAY 90 tablet 1 5 Active Active Problems Problem Noted Date Diagnosed Date Renovascular hypertension 06/20/2024 Sjogren's syndrome 12/23/2023 ILD (interstitial lung disease) 10/08/2022 Immunizations Immunization Administration Dates Next Due Influenza, Unspecified 01/28/2023 Moderna SARS-CoV-2 Monovalent Vaccination (12+ Y RS) 02/15/2023 Pneumococcal Conjugate Pcv20 05/04/2023 RSV Vaccine, Pref, Recombina nt, Subunit, Adjuvanted, PF, IM (Arexvy) 03/14/2023 Surgical History Surgery Date Site/Laterality Comments TUBAL LIGATION 1979 FRACTURE SURGERY 12-17-18 and 06-24-23 ( no surgery this time) CATARACT EXTRACTION [id number] Medical History Medical History Date Comments Hypertension Hypertension Hx Other 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 Depression Mid '70s Thyroid disease 2016 Arthritis A decade ago Autoimmune disease 2020 Family History Medical History Relation Name Comments Other Father Unknown; Cause of : Unknown Arthritis Mother COPD Mother Depression Mother Other Mother Unknown; Cause of : Unknown Relation Name Status Comments Father (Age 93) Mother (Age 90) Social History Tobacco Use Types Packs/Day Years Used Date Smoking Tobacco: Never Smokeless Tobacco: Never Alcohol Use Standard Drinks/Week Comments Yes 0 (1 standard drink = 0.6 oz pur e alcohol) social drinker Comments Unknown Sex and Gender Information Value Date Recorded Sex Assigned at Not on file 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 Gender Identity Female 06/06/2023 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 Sexual Orientation Not on file Obstetrics History Last Filed Vital Signs Vital Sign Reading Time Taken Comments Blood Pressure 135/76 06/22/2024 9:19 AM CDT Pulse 77 06/22/2024 9:19 AM CDT Temperature 36.2 C (97.2 F) 06/22/2024 9:19 AM CDT Respiratory Rate 18 06/22/2024 9:19 AM CDT Oxygen Saturation 100% 06/22/2024 9:19 AM CDT Inhaled Oxygen Concentration - - Weight 49.9 kg (110 lb) 06/22/2024 9:19 AM CDT Height 161.3 cm (5' 3.5) 06/22/2024 9:19 AM CDT Body Mass Index 19.18 06/22/2024 9:19 AM CDT Plan of Treatment Health Maintenance Due Date Last Done Comments Depression Screening 1944 Fall Risk Assessment 1944 DTaP/Tdap/Td Vaccine (1 - Tdap) 08/18/1955 Hepatitis B Screening 1962 Well Visit 65+ 2009 Zoster Vaccine (2 of 2) 08/16/2023 06/21/2023 Covid-19 Vaccine (5 - 2023-2 5 season) 2023 02/15/2023, 03/18/2021, 06/30/2020, Additional history exists Influenza Vaccine (#1) 2024 , 01/20/2022, 02/02/2021, Additional history exists Osteoporosis Screening-Bone Density Scan 11/15/2025 11/16/2023, 11/16/2023 Pneumococcal vaccine 65+ Completed 05/04/2023, 08/09 Insurance [facility] MEDICARE ADVANTAGE T MEDICARE T MEDICARE Care Teams Reject Opener Relationship Specialty Start Date End Date Tania Davis PA PCP - General Physician Boat Operator 02/08/18
--- OUTSIDE RECORDS SUMMARY | 2024-10-15 07:11 | XMS_ITS | Referral Summary ---
Author Organization [facility] [address] Address [address] [place] [address] Care Team Providers Care Tailor Garment Fitter Name Role Phone EllasimoneTania Primary Care Pr [...] (NORVASC) 5 mg tablet 8 Active vit C,J-Yp-jrohk-stevenson tein-zeaxan [id number] ua-vlvz-ri-mg capsule Take 1 capsule by mouth daily. 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
--- OUTSIDE RECORDS SUMMARY | 2024-10-15 07:11 | XMS_ITS | Clinical Summary ---
Author Organization [facility] [employer] Address [address] [place] [address] Care Team Providers Care Economics Analyst Name Role Phone Tania Moreau Primary Care Pr ovider Source Comments [facility],non-owned Affiliates and Associated Physician Practices is amultiple site organization consisting of ambulatory clinics and hospital sitesin [place], [place], [place] and [place]. This disclosure is being madepursuant to the Care Everywhere program and may not contain all information available regarding this patient. Last updated 17.[facility] [employer] Allergies Active Allergy Reactions Criticality Noted Date Comments Azithromycin Itching,Nausea and/or Vomiting Low 11/2021 Erythromycin Itching Low 02/08/2018 Sulfa Drugs Itching,Other Low 02/16/2022 Medications * Be aware that medications may not be up to date on this document. Alwaysverify current medications with the patient. amLODIPine (Norvasc) 10 MG tablet Take 1 (one) tablet by mouth once daily Active aspirin EC (Ecotrin) 81 MG tablet Take 1 (one) tablet by mouth once daily Active buPROPion XL 24hr (Wellbutrin-XL) 150 MG tablet Take 1 (one) tablet by mouth every morning 2 Active ezetimibe (Zetia) 10 MG tablet Take 1 (one) tablet by mouth once daily 2 Active FLUoxetine (PROzac) 10 MG capsule Take 1 (one) capsule by mouth once daily 2 Active Synthroid 75 MCG tablet Take 1 (one) tablet by mouth once daily 2 Active Multiple Vitamins-Mineral s (PreserVision AREDS 2) capsule Take 1 (one) capsule by mouth once daily Active Livalo 1 MG tablet Take 1 (one) tablet by mouth once daily 2 Active Red Yeast Rice Extract 600 MG Take 1 Dose by mouth once daily Active Calcium Carb-Cholecalcif ilsa (CALCIUM 1000 + D PO) Take 1 Dose by mouth once daily Active Nutritional Supplements (JUICE PLUS FIBRE PO) Take 1 Dose by mouth once daily Active magnesium 250 MG tablet Take 1 (one) tablet by mouth once daily Active Multiple Vitamins-Mineral s (CENTRUM SILVER 50+WOMEN PO) Take 1 tablet by mouth once daily Active Selenium 200 MCG Take 1 tablet by mouth once daily Active pantoprazole EC (Protonix) 40 MG tablet Take 1 (one) tablet by mouth as needed for Heartburn Active Active Problems Problem Noted Date Diagnosed Date Age-related osteoporosis wit cy current pathological fracture 11/02/2023 Assessment & Plan (11/02/2023 11:36 AM CDT): Has experienced now 2 hip fractures (s/p Rt ROB) with most recent 06/23/2023 proximal femoral shaft fracture and need follow up DEXA for osteoporosis concerns. 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 [facility] a Division of Otolaryngology and had a [...] not certain represents a systemic inflammatory process. Encounters Date Type Department Care Team Description 09/11/2024 1:15 PM CDT Office Visit [facility] - Orthopedic Surgery [address] [place] [phone] Braxton Wilkins MD Periprosthetic fracture of hip, subsequent encounter (Primary Dx) 09/11/2024 1:11 PM CDT - 09/11/2024 11:59 PM CDT Hospital Encounter [facility] - Orthopedics [address] [place] [address], [address] [place] [phone] Braxton Wilkins MD Discharge Disposition: Home or Self Care 09/11/2024 Travel 09/10/2024 Orders Only [facility] - Orthopedic Surgery [address] [place] [phone] Braxton Wilkins MD Periprosthetic fracture of hip, subsequent encounter ; Left knee pain, unspecified chronicity 08/10/2024 Telephone [facility] - Orthopedic Surgery [address] [place] [phone] Cecelia Wilson, RN Appointment from Last 3 Months Immunizations Immunization Administration Dates Next Due FLU VACCINE QUAD [...] Recorded Patient Health Questionnaire-2 Score 0 09/07/2023 [facility] Occupat ional Health - Occupational Stress [...] money to buy more. Never true 06/23/19 Within the past 12 months, t he [...] place to sleep or slept in a nursing home (including now)? No 06/23/2023 Comments No Sex and Gender Information Value Date Recorded [...] 11:02 AM CDT Height 160 cm (5' 3) 11/02/2023 11:02 AM CDT Body Mass Index 20.55 11/02/2023 11:02 AM CDT Plan of Treatment Upcoming Encounters Date Type Department Care Team (Late st Contact Info) Description 10/31/2024 12:40 PM CDT Office Visit [facility] - Rheumatology [address], [address] [place] [address] Caden Rodriguez DO [address] [facility] [address] [place] [address] 09/11/2025 1:30 PM CDT Office Visit [facility] - Orthopedic Surgery [address] [place] [phone] Braxton Wilkins MD [address] [facility] [address] [place] [address] Health Maintenance Due Date Last Done Comments DTAP/TDAP/TD VACCINES (1 - Tdap) 08/18/1964 ZOSTER VACCINE (1 of 2) 1994 PNEUMOCOCCAL VACCINE 50+ (2 of 2 - PCV20 or PCV21) 08/25/2017 08/25/2016 Respiratory Syncytial Virus (RSV) Vaccine Pt: or over 60 yrs (1 - 1-dose 75+ series) 08/18/2019 COVID-19 VACCINE ( - season) 2023 02/15/2023, 03/18/2021, 06/30/2020, Additional history exists DEPRESSION SCREENING 04/11/2024 09/07/2023 MEDICARE AWV CALENDAR YEAR 2024 INFLUENZA VACCINE (#1) 2024 , 01/20/2022, 02/02/2021, Additional history exists BONE DENSITY TESTING Completed 11/16/2023 HEPATITIS B VACCINE Aged Out No longe r eligible based on patient's age to complete this topic HIB VACCINE Aged Out No longer eligi ble based on patient's age to complete this topic HPV VACCINE Aged Out No longer eligi ble based on patient's age to complete this topic MENINGOCOCCAL (Group B) VACCINE SHARED DECISION-MAKING Aged Out No longer eligible based on patient's age to complete this topic MENINGOCOCCAL GROUPS A/C/Y/W VACCINE Aged Out No longer eligible based on patient's age to complete this topic Procedures Procedure Name Priority Date/Time Associated Diagnosis Comments XR KNEE LEFT 4VW OR MORE Routine 09/11/2024 1:28 PM CDT Left knee pain, unspecified chronicity XR FEMUR RIGHT 2VW Routine 09/11/2024 1: 28 PM CDT Periprosthetic fracture of hip, subsequent encounter DEXA BONE DENSITY AXIAL SKELETON Routine 11/16/2023 Age-related osteoporosis without current pathological fracture from Last 3 Months or Most Recently Relevant to Health Maintenance Results * XR Knee Left 4Vw or More (09/11/2024 1:28 PM CDT) Anatomical Region Laterality Modality Lower Extremity Radiographic Kaylan ging 09/11/2024 2:26 PM CDT Impressions 09/11/2024 2:27 PM CDT IMPRESSION: No appreciable acute abnormality. > Interpreting Provider: Sabiha Ni MD on 09/11/2024 2:27 PM Narrative 09/11/2024 2:27 PM CDT PROCEDURE: XR KNEE LEFT 4VW OR MORE DATE/TIME OF EXAM: 09/11/2024 1:28 PM CLINICAL INFORMATION: None relevant/not provided if blank. Indication: M25.562: Left knee pain, unspecified chronicity Additional History: COMPARISON: None. FINDINGS: No acute fracture. There is ossification lateral to the patella. Alignment is normal. Joint spaces are normal. There is no appreciable soft tissue abnormality. Procedure Note Sabiha Ni MD - 09/11/2024 PROCEDURE: XR KNEE LEFT 4VW OR MORE DATE/TIME OF EXAM: 09/11/2024 1:28 PM CLINICAL INFORMATION: None relevant/not provided if blank. Indication: M25.562: Left knee pain, unspecified chronicity Additional History: COMPARISON: None. FINDINGS: No acute fracture. There is ossification lateral to thepatella. Alignment is normal. Joint spaces are normal. There is no appreciablesoft tissue abnormality. IMPRESSION: No appreciable acute abnormality. > Interpreting Provider: Sabiha Ni MD on 09/11/2024 2:27 PM Braxton Wilkins MD DIAGNOSTIC IMAGING ORDERABL ES Final Result * XR Femur Right 2Vw (09/11/2024 1:28 PM CDT) Anatomical Region Laterality Modality Lower Extremity Radiographic Kaylan ging 09/11/2024 2:17 PM CDT Impressions 09/11/2024 2:20 PM CDT IMPRESSION: Right hip arthroplasty and internal fixation in unchanged position. > Interpreting Provider: Sabiha Ni MD on 09/11/2024 2:20 PM Narrative 09/11/2024 2:20 PM CDT PROCEDURE: XR FEMUR RIGHT 2VW DATE/TIME OF EXAM: 09/11/2024 1:28 PM CLINICAL INFORMATION: None relevant/not provided if blank. Indication: M97.8XXD: Periprosthetic fracture of hip, subsequent encounter Z96.649: Periprosthetic fracture of hip, subsequent encounter Additional History: COMPARISON: 10/19/2023 FINDINGS: A right hip arthroplasty is again seen. A cerclage wire is unchanged. There are multiple skin folds over the proximal right femur. The previously seen fracture line remains partially visible. There is no new fracture. Procedure Note Sabiha Ni MD - 09/11/2024 PROCEDURE: XR FEMUR RIGHT 2VW DATE/TIME OF EXAM: 09/11/2024 1:28 PM CLINICAL INFORMATION: None relevant/not provided if blank. Indication: M97.8XXD: Periprosthetic fracture of hip, subsequentencounter Z96.649: Periprosthetic fracture of hip, subsequent encounter Additional History: COMPARISON: 10/19/2023 FINDINGS: A right hip arthroplasty is again seen. A cerclage wire is unchanged. There are multiple skin folds over the proximal right femur.The previously seen fracture line remains partially visible. There is no new fracture. IMPRESSION: Right hip arthroplasty and internal fixation in unchanged position. > Interpreting Provider: Sabiha Ni MD on 09/11/2024 2:20 PM Braxton Wilkins MD DIAGNOSTIC IMAGING ORDERABL ES Final Result * DEXA BONE DENSITY AXIAL SKELETON (11/16/2023) Anatomical Region Laterality Modality Other Caden Rodriguez DO DEXA ORDERABLES Final Result from Last 3 Months or Most Recently Relevant to Health Maintenance Insurance [employer] MEDICARE ADV Advance Directives * Full Code (Latest Code Status on File) Date Activated Date Inactivated Comments 06/23/2023 9:07 AM 06/29/2023 8:41 PM Care Teams Economics Analyst Relationship Specialty Start Date End Date Tania Moreau PA [address] [place] [phone] PCP - General Physician Meeting Planner 11/03/23
[2024-10-15 07:54] LABS: Hematocrit 39.8 % (37.0-47.0); Hemoglobin 12.6 g/dL (12.0-15.0); Immature Granulocyte Percent A 0.9 % (0-0.5); Lymphocytes Absolute Auto 1.45 K/mm3 (0.9-3.2); Mean Corpuscular HGB Conc 31.7 g/dl (32-36); Mean Corpuscular Hemoglobin 30.7 pg (26-34); Mean Corpuscular Volume 96.8 fl (80-100); Nucleated Red Blood Cells Absolute Auto 0.000 K/mm3 (0.0-0.012); Nucleated Red Blood Cells Perc 0.0 % (0.0-0.2); Platelet Count Result 194 k/mm3 (150-375); Red Blood Count 4.11 M/mm3 (4.2-5.4); White Blood Count 7.9 K/mm3 (4.5-10.0)
[2024-10-15 08:05] LABS: Alanine Aminotransferase 47 U/L (6-35); Albumin Level 4.1 g/dL (3.5-5.1); Alkaline Phosphatase 140 U/L (38-126); Anion Gap 8 mmol/L (4-12); Aspartate Amino Transferase 54 U/L (14-36); Bilirubin,Total 0.4 mg/dL (0.2-1.3); Blood Urea Nitrogen 27 mg/dL (7-17); Calcium 9.6 mg/dL (8.4-10.2); Carbon Dioxide 27 mmol/L (22-30); Chloride 104 mmol/L (98-107); Cholesterol 145 mg/dL (0-200); Estimated Glomerular Filt Rate 53; Glucose 87 mg/dL (65-110); HDL Direct 45 mg/dL; Potassium 4.3 mmol/L (3.4-5.0); Sodium 139 mmol/L (137-145); Total Protein 8.0 g/dL (6.3-8.2); Triglycerides 152 mg/dL (<150)
[2024-10-15 08:22] LABS: Free T4 Free Thyroxine 1.14 ng/dL (0.78-2.19)
[2024-10-15 08:36] LABS: Thyroid Stimulating Hormone 2.040 uIU/mL (0.465-4.680)
== END 2024-10-15 07:08 | disposition home or self-care (01) ==
PROVIDERS: PCP Physician Assistant; Visit Provider Physician Assistant
DX: E03.9 Hypothyroidism, unspecified (principal); E78.5 Hyperlipidemia, unspecified; Z79.899 Other long term (current) drug therapy
CPT/HCPCS: 36415; 80048; 80061; 80076; 84439; 84443; 85025

== ENCOUNTER 2024-10-24 10:26 | Emergency (ER) | payer MEDICARE, SELFPAY ==
[2024-10-24 10:36] VITALS: BP 139/60; PULSE 70; RESP 16; TEMP 36.7; O2SAT 100
--- NOTE | 2024-10-24 10:53 | ED_ITS ---
HPI - Eye Problem General Chief complaint: Eye Problems Stated complaint: Left Eye Irritation Source: patient and family () Mode of arrival: ambulatory (with walker) Limitations: no limitations History of Present Illness HPI Narrative: patient is a pleasant 79-year-old female presenting with her for evaluation of eye problem. Patient reports pruritus to the left eye, onset 3 days ago. Patient's reports that the sclera of the left eye was really red at onset however, that has since resolved. Denies visual disturbances, pain. Treatment initiated prior to arrival include dkfy-opk-dtjpfrb stye medication. No known exposure to bacterial conjunctivitis. Does report preceding URI symptoms with concurrent ongoing rhinorrhea, sneezing. She does take a daily bkmm-kzt-ktvdltq antihistamine. No additional complaints. Related Data Home Medications ?Medication ?Instructions ?Recorded ?Confirmed ?Last Taken ?Type amlodipine 5 mg tablet 5 mg PO DAILY 09/17/19 04/07/22 Unknown History bupropion HCl 150 mg 24 hr tablet, 150 mg PO QAM 09/17/19 04/07/22 Unknown History extended release ezetimibe 10 mg tablet 10 mg PO DAILY 03/02/22 04/07/22 Unknown History pantoprazole 40 mg tablet,delayed 40 mg PO .prn Heartburn 03/02/22 04/07/22 Unknown History release Calcium + D 1 tab-cap PO DAILY 04/07/22 04/07/22 Unknown History aspirin 81 mg capsule 81 mg PO DAILY 04/07/22 04/07/22 Unknown History cholecalciferol (vitamin D3) 25 25 mcg PO DAILY 04/07/22 04/07/22 Unknown History mcg (1,000 unit) capsule (Vitamin D3) fluoxetine 10 mg capsule 30 mg PO DAILY 04/07/22 04/07/22 Unknown History levothyroxine 75 mcg tablet 75 mcg PO DAILY 04/07/22 04/07/22 04/13/22 08:00 History loratadine 10 mg tablet (Claritin) 10 mg PO DAILY 04/07/22 04/07/22 Unknown History magnesium glycinate 100 mg (as 100 mg PO DAILY 04/07/22 04/07/22 Unknown History glycinate) tablet hrwfdjjzxbzx-xxggzlbc-uvlsno tablet 1 tablet PO DAILY 04/07/22 04/07/22 Unknown History nutritional supplement-fiber oral 1 ea PO DAILY 04/07/22 04/07/22 Unknown History liquid pitavastatin calcium 1 mg tablet 1 mg PO DAILY 04/07/22 04/07/22 Unknown History (Livalo) red yeast rice 600 mg capsule 1,200 mg PO DAILY 04/07/22 04/07/22 Unknown History selenium 200 mcg capsule 200 mcg PO DAILY 04/07/22 04/07/22 Unknown History vit C 250 mg-vit E 90 mg-zinc 40 2 cap PO DAILY 04/07/22 04/07/22 Unknown History mg-copper 1 qk-owlaup-asdcvd capsule (PreserVision AREDS-2) vitamin B complex 1 cap PO DAILY 04/07/22 04/07/22 Unknown History calcium 10/24/24 Unknown History Allergies Allergy/AdvReac Type Severity Reaction Status Date / Time azithromycin Allergy Mild Unknown Verified 10/24/24 10:47 erythromycin base Allergy Mild Unknown Verified 10/24/24 10:47 Sulfa (Sulfonamide Allergy Mild Unknown Verified 10/24/24 10:47 Antibiotics) Review of Systems Review of Systems: CONSTITUTIONAL: Denies body aches, fever, chills, or sweats. EYES: Denies visual changes ENT: Denies rhinorrhea, congestion, sore throat, or otalgia. CARDIOVASCULAR: Denies chest pain, palpitations, or edema. RESPIRATORY: Denies cough or dyspnea. GASTROINTESTINAL: Denies abdominal pain, nausea, vomiting, or diarrhea. GENITOURINARY: Denies dysuria or hematuria. SKIN: Denies rash, itching, or wounds. MUSCULOSKELETAL: Denies back pain, joint pain, or myalgia. NEUROLOGIC: Denies headache, numbness, tingling, or weakness. PSYCH: Denies depression or anxiety. All systems reviewed & are unremarkable except as noted in HPI and below PMFSH Past Medical History Medical History Hip fracture, right Atypical chest pain Dysphagia Colon cancer screening Abnormal CT scan, chest Osteoporosis History of stent insertion of renal artery Surgical History Surgical History Status post epidural steroid injection (~2008) L3-4-5 History of tonsillectomy (~2014) History of cataract extraction History of hip surgery (~01/08/19) Rt Hip Taye Arthroplasty Family History Family History Unknown Arthritis Other Family history of arthritis Social History Social History Smoking status: Never smoker Alcohol intake: current Spiritual care concerns: No Exam Narrative: GENERAL: Well-appearing, well-nourished, and in no acute distress. HEAD: Normocephalic, atraumatic. EYES: EOMI. No redness or drainage. Conjunctivae normal. ENT: Mucous membranes pink and moist. NECK: Normal AROM. Supple. CHEST: No respiratory distress. HEART: Normal rate EXTREMITIES: Normal range of motion. SKIN: Warm, dry, no rash. Capillary refill normal. Normal skin turgor. NEURO: No focal deficits. Alert and oriented x3. PSYCH: Normal affect. No signs of depression or anxiety. Course Course Level of Care: Express Care Visit Vital Signs Vital signs: Vital Signs Temperature 98.1 F 10/24/24 10:36 Pulse Rate 70 10/24/24 10:36 Respiratory Rate 16 10/24/24 10:36 Blood Pressure 139/60 10/24/24 10:36 Pulse Oximetry 100 10/24/24 10:36 Oxygen Delivery Room Air 10/24/24 10:36 Temperature 98.1 F 10/24/24 10:36 Pulse Rate 70 10/24/24 10:36 Respiratory Rate 16 10/24/24 10:36 Blood Pressure 139/60 10/24/24 10:36 Pulse Oximetry 100 10/24/24 10:36 Oxygen Delivery Room Air 10/24/24 10:36 MDM - Eye Problem Differential Diagnosis Differential diagnosis: Likely conjunctivitis and other ( hordeolum) Discharge Plan Discharge Clinical Impression: Acute conjunctivitis of left eye Qualifiers: Acute conjunctivitis type: unspecified Qualified Code(s): H10.32 - Unspecified acute conjunctivitis, left eye Patient Disposition: Home Condition: Stable Instructions: Conjunctivitis (ED) Additional Instructions: Flush your eye(s) out with refridgerated visine THEN instill over the counter allergy eye drops (like zaditor) per the package instructions Apply cool CLEAN compresses over the eyes. Go straight to ER should your symptoms become worse or should any new symptoms develop Patient Language: Kittitian Prescriptions: No Action calcium ezetimibe 10 mg tablet 10 mg PO DAILY pantoprazole 40 mg tablet,delayed release (DR/EC) 40 mg PO .prn amlodipine 5 mg tablet 5 mg PO DAILY bupropion HCl 150 mg tablet extended release 24 hr 150 mg PO QAM levothyroxine 75 mcg Tablet 75 mcg PO DAILY fluoxetine 10 mg Capsule 30 mg PO DAILY loratadine [Claritin] 10 mg Tablet 10 mg PO DAILY vitamin B complex [Super B Complex] Capsule 1 cap PO DAILY cholecalciferol (vitamin D3) [Vitamin D3] 25 mcg (1,000 unit) Capsule 25 mcg PO DAILY Centrum Silver Tablet 1 tablet PO DAILY Juice Plus Liquid 1 ea PO DAILY red yeast rice 600 mg Capsule 1,200 mg PO DAILY Rx Instructions: give with meal/snack magnesium glycinate 100 mg Tablet 100 mg PO DAILY pitavastatin calcium [Livalo] 1 mg Tablet 1 mg PO DAILY selenium 200 mcg Capsule 200 mcg PO DAILY PreserVision AREDS-2 250-90-40-1 mg Capsule 2 cap PO DAILY aspirin 81 mg Capsule 81 mg PO DAILY Calcium + D 1 tab-cap PO DAILY hydrocodone-acetaminophen 5-325 mg tablet 1 tablet PO Q4H PRN (Reason: pain) Qty: 30 0RF Follow-up/Referrals: Susan,HOWIE Marin [Primary Care Provider] - Time of Disposition: 10:54
== END 2024-10-24 11:00 | disposition home or self-care (01) ==
PROVIDERS: Emergency Provider Registered Nurse; PCP Physician Assistant
DX: H10.32 Unspecified acute conjunctivitis, left eye (principal); M81.0 Age-related osteoporosis without current pathological fracture; Z96.0 Presence of urogenital implants
CPT/HCPCS: 99212; G0463

== ENCOUNTER 2025-01-03 16:14 | Outpatient (CLI) | payer MEDICARE, SELFPAY ==
--- NOTE | ~2025-01-03 | MM_ITS ---
EXAMINATION: MM screening [facility] BI w adriana HISTORY: Screening TECHNIQUE: Craniocaudal and mediolateral oblique 3-D tomosynthesis images were obtained and synthetic 2-D images were generated. CAD analysis was submitted and interpreted. COMPARISON: 11/19/2022 and 09/23/2021 BREAST PARENCHYMAL COMPOSITION: The breasts are extremely dense, which lowers the sensitivity of mammography. FINDINGS: There is no evidence of suspicious mass, calcification, or architectural distortion to suggest malignancy. There has been no suspicious interval change. IMPRESSION: 1. No mammographic evidence of malignancy. Recommend routine screening mammography in one year. BI-RADS Category 2: Benign finding(s) Reviewed, dictated and finalized at location Q. IMPRESSION: 1. No mammographic evidence of malignancy. Recommend routine screening mammogra phy in one year. BI-RADS Category 2: Benign finding(s)
--- OUTSIDE RECORDS SUMMARY | 2025-01-03 17:42 | XMS_ITS | Clinical Summary ---
Author Organization [facility] [employer] Address [address] [place] [address] Care Team Providers Care Recovery Coach Name Role Phone Tania Moreau Primary Care Pr ovider Source Comments [facility],non-owned Affiliates and Associated Physician Practices is amultiple site organization consisting of ambulatory clinics and hospital sitesin [place], [place], [place] and [place]. This disclosure is being madepursuant to the Care Everywhere program and may not contain all information available regarding this patient. Last updated 17.[facility] [employer] Allergies Active Allergy Reactions Criticality Noted Date [...] tablet by mouth once daily 2 Active Nutritional Supplements (JUICE PLUS FIBRE PO) [...] by mouth as needed for Heartburn Active calcium citrate (Citracal 950) 950 MG tablet Take by mouth once daily Active vitamin D3 (Cholecalciferol ) 10 MCG (400 UNIT) tablet Take 1 (one) tablet by mouth once daily Active Active Problems Problem Noted Date Diagnosed Date Age-related osteoporosis wit cy current pathological fracture 11/02/2023 Assessment & Plan (10/31/2024 1:06 PM CDT): Outside DEXA 11/15/2024 with total left hip T score -1.9 and femoral neck T score -1.4 but also with prior right hip fracture (while previously on alendronate for several years) and complicated by additional 2 periprosthetic femur fractures. Might be candidate for a anabolic bone mineral density treatment to increase bone density and reduce future fracture risk and will refer to [facility] clinic for consultation and further discussion/recommendations. Assessment & Plan (11/02/2023 11:36 AM CDT): Has experienced now 2 hip fractures (s/p Rt ROB) with most recent 06/23/2023 proximal femoral shaft fracture and need follow up DEXA for osteoporosis concerns. Edna Morfin has been encouraged to take supplemental rbaf-wrm-hcgfwcb (preferably calcium citrate) 5417-9049 mg and vitamin D3 1000 IU daily in divided dose for bone health. Positive DEVI (antinuclear an tibody) titer of [...] performed and will try to check with [facility] pathology. Encouraged to follow up with [...] performed and will try to check with [facility] pathology. Encouraged to follow up with [...] not certain represents a systemic inflammatory process. Resolved Problems Problem Noted Date Diagnosed Date Resolved Date Fall, initial encounter 06/23/202310/10 Encounters Date Type Department Care Team Description 11/09/2024 Travel 10/31/2024 12:40 PM CDT Office Visit [facility] - Rheumatology [address] [place] [address], [address] [place] [address] Caden Rodriguez DO Scleroderma, limited (HCC) (Primary Dx); Age-related osteoporosis without current pathological fracture from Last 3 Months Immunizations Immunization Administration [...] Answer Date Recorded Patient Health Questionnaire-2 Score 1 10/31/2024 [facility] - [...] place to sleep or slept in a intermediate (including now)? No 06/23/2023 Comments No Sex and Gender Information Value Date Recorded Sex Assigned at Not on file Legal Sex Female 1:40 PM CDT Gender Identity Not on file Sexual Orientation Not on file Last Filed Vital Signs Vital Sign Reading Time Taken Comments Blood Pressure 120/58 10/31/2024 12:29 PM CDT Pulse 51 10/31/2024 12:29 PM CDT Temperature 36.1 C (97 F) 10/31/2024 12:29 PM CDT Respiratory Rate 16 10/31/2024 12:29 PM CDT Oxygen Saturation 97% 10/31/2024 12:29 PM CDT Inhaled Oxygen Concentration - - Weight 50.8 kg (112 lb) 10/31/2024 12:29 PM CDT Height 160 cm (5' 3) 11/02/2023 11:02 AM CDT Body Mass Index 19.84 11/02/2023 11:02 AM CDT Plan of Treatment Upcoming Encounters Date Type Department Care Team (Late st Contact Info) Description 01/16/2025 1:00 PM CDT Office Visit [facility] - Orthopedic Surgery [address] [place] [address] Joy aLuren, FORECLOSURE CLERK-TELEPHONE SOLICITOR SUPERVISOR [address] [place] [phone] 09/11/2025 1:30 PM CDT Office Visit [facility] - Orthopedic Surgery [address] [place] [address] Braxton Wilkins MD [address] [place] [address] 10/31/2025 12:40 PM CDT Office Visit [facility] - Rheumatology [address], [address] [place] [address] Caden Rodriguez DO [address] [place] [address] Health Maintenance Due Date Last Done Comments DTAP/TDAP/TD VACCINES (1 - Tdap) 08/18/1963 ZOSTER VACCINE (1 of 2) 1994 PNEUMOCOCCAL VACCINE 50+ (2 of 2 - PCV20 or PCV21) 08/25/2017 08/25/2016 Respiratory Syncytial Virus (RSV) Vaccine Pt: or over 60 yrs (1 - 1-dose 75+ series) 08/18/2019 MEDICARE AWV CALENDAR YEAR 2024 COVID-19 VACCINE ( - season) 2024 02/15/2023, 03/18/2021, 06/30/2020, Additional history exists INFLUENZA VACCINE (#1) 2024 , 01/28/2023, 01/20/2022, Additional history exists BONE DENSITY TESTING Completed 11/16/2023 DEPRESSION SCREENING Completed 10/31/2024, 09/07/19 24 HEPATITIS B VACCINE Aged Out No longe [...] Anatomical Region Laterality Modality Other Cadencb Rodriguez DEXA ORDERABLES Final Result from Last 3 Months or Most Recently Relevant to Health Maintenance Insurance [facility] AETNA MEDICARE ADV Advance Directives * Full Code (Latest Code Status on File) Date Activated Date Inactivated Comments 06/23/2023 9:07 AM 06/29/2023 8:41 PM Care Teams Recovery Coach Relationship Specialty Start Date End Date Tania Moreau PA [address] [place] [address] PCP - General Physician Human Resources Compensation Analyst 11/03/23
--- OUTSIDE RECORDS SUMMARY | 2025-01-03 17:42 | XMS_ITS | Patient Health Record ---
Author Organization [facility] Address [address] [place] [address] Support Name Relationship Address Phone Mercedes Morfin Guarantor Unknown [phone] Reason For Referral No Information Medications Medication SIG (Take, Route, Frequency, Duration) Notes Start Date End Date Status Ocuvite Adult 50+ per eye doctor Oral 08/27/2010 Active Biotin Maximum Strength 55204 MCG 1 qd Oral Active Aspirin 81 MG 1 Every Day Oral 10/11/2005 Active Caltrate 600mg once daily in addition to other calcium *Reorder from [employer] for eRx and Interaction Alerts* 08/27/2010 Active Centrum Silver 1 Every Day Oral 10/11/2005 Active Immunizations Vaccine Route Administration Date Status Comme nts Infuenza, trivalent, recombinant, preservative free Unknown 12/29/2009 Administered migrated LegPat[employer]= [id number] Date=02/17/1999 Vac= Influenza Infuenza, trivalent, recombinant, preservative free Unknown 02/08/2013 Administered [facility] [phone] Infuenza, trivalent, recombinant, preservative free Unknown 01/12/2014 Administered wal Infuenza, trivalent, recombinant, preservative free Unknown 01/02/2015 Administered [facility] [phone] Pneumococcal conjugate PCV 13 Unknown 01/09/2010 Administered migrated LegPat[employer]= [id number] Date=01/09/2010 Vac= pneumococcal Pneumococcal conjugate PCV 13 IM Intramuscular 03/25/2014 Administered Pneumococcal conjugate PCV 13 IM Intramuscular 03/26/2015 Administered Tdap Unknown 09/29/2006 Administered migrated [employer]= [id number] Date=09/29/2006 Vac= Tdap Problems Problem Type SNOMED Code ICD Code Onset Dates Problem Status W/U Status Risk Notes Problem Pathological fractur e of vertebra (disorder) (161937040) 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 Getting EDWARD, sees oil agent for osteopenia and saw pain management Problem Major depression, single episode (27727876) Major depressive disorder, single episode, unspecified (F32.9) Active confirmed 03/23/2013 - Dr Gonzalez is moving sees Dr Gonzalez, on wellbutrin/p rozac Problem Allergic rhinitis (15398368) Allergic rhinitis, unspecified (J30.9) 2005 Active confirmed all year, Zyrte Problem Gastro-esophageal reflux disease with esophagitis (369919780) Gastro-esophag eal reflux disease with esophagitis (K21.0) 2011 Active confirmed 02/16/2012 on omeprazole, Step down to Zantac (osteopenia) Problem Low back pain (242957571) Low back pain (M54.5) 2005 Active confirmed Problem Disorder of bone (65104313) Other specified disorders of bone density and structure, unspecified site (M85.80) 2006 Active confirmed compression fracture L2-3 11/2011, took Fosamax 5-10 yrs per oil agent, Off in 2009 Problem Chronic kidney disease stage 3 (disorder) (607455755) Chronic kidney disease, stage 3 (moderate) (N18.3) Active confirmed ., no renal US yet Problem SI - Stress incontinence (07863462) Stress incontinence (female) (male) (N39.3) 2005 Active confirmed urge incontinence , meds caused dry mouth, per urologist Problem Palpitations (05725065) Palpitations (R00.2) 2005 Active confirmed resolved Problem Amnesia (17770442) Other amnesia (R41.3) 2014 Active confirmed Problem Elevated levels of transaminase & lactic acid dehydrogenase (882667920) Nonspecific elevation of levels of transaminase and lactic acid dehydrogenase [LDH] (R74.0) Active confirmed ast alt 36/41 Problem Pure hypercholesterolemia (470349382) Pure hypercholester olemia, unspecified (E78.00) Active confirmed 09/15/2012 - 93/50/60 no meds red yeast rice 02/21/2012 - 187/50/72, none, Diet, etc, consider medication Plan Of Treatment No Information Insurance Providers Payer Name Payer Address Payer Phone Subscriber Number Group Number Insured Name Patient Relationship to Insured Coverage Start Date Coverage End Date DO NOT USE - [employer] [address] [address] [place], [place] [id number] Mercedes Morfin Self - patient is the insured 4 [employer] [place] [address] [place] [address] [id number] Mercedes Morfin Self - patient is the insured 2 [employer] - [employer] [address] [place], [place] [id number] Mercedes Morfin Self - patient is the insured 2 Medical (General) History Surgical History Surgery Date(Month/Year) T&A: as a child; 2012-02-16 Tubal ligation: laparoscopic by cautery; 2012-02-16
--- OUTSIDE RECORDS SUMMARY | 2025-01-03 17:42 | XMS_ITS | Encounter Summary ---
Author Organization [facility] Address [address] [place] [address] Care Team Providers Care Real Estate Office Manager Name Role Phone Patricia Vaca Primary Care Prov ider Unavailable Tania Moreau Primary Care Pr ovider Tania Moreau Primary Care Pr ovider Encounter Details Date Type Department Care Team (Late Contact Info) Description 02/02/2022 Telephone [facility] - Third Level [address] [place] [address], [place] [address] Primo Yanez MD [address] [place] [address] [place] [address] Social History Tobacco Use Types Packs/Day Years Used Date Smoking Tobacco: Never Assessed Comments Unknown Sex and Gender Information Value Date Recorded Sex Assigned at Not on file Legal Sex Female 1:40 PM CDT Gender Identity Not on file Sexual Orientation Not on file documented as of this encounter Plan of Treatment Upcoming Encounters Date Type Department Care Team (Late Contact Info) Description 01/16/2025 1:00 PM CDT Office Visit [facility] - Orthopedic Surgery [address] [place] [phone] Joy Lauren APRN-CNP [address] [place] [address] 09/11/2025 1:30 PM CDT Office Visit [facility] - Orthopedic Surgery [address] [place] [address] Braxton Wilkins MD [address] [place] [address] 10/31/2025 12:40 PM CDT Office Visit [facility] - Rheumatology [address] [facility], [address] [place] [address] Caden Rodriguez DO [address] [place] [address] documented as of this encounter Visit Diagnoses Not on filedocumented in this encounter Additional Health Concerns Infection Onset Date Last Indicated Resolved Time COVID-19 Under Investigation 06/29/2023 06/29/2023 06/29/2023 5:02 PM CDT documented as of this encounter Care Teams Real Estate Office Manager Relationship Specialty Start Date End Date Patricia Vaca APRN-COLLEEN Update Information PCP - General 02/01/22 02/24/22 Tania Moreau PA [address] [place] [phone] PCP - General Physician Brake Tester 02/25/22 05/20/22 Tania Moreau PA [address] [place] [phone] PCP - General Physician Brake Tester 11/03/23 documented as of this encounter
--- OUTSIDE RECORDS SUMMARY | 2025-01-03 17:42 | XMS_ITS | Clinical Summary ---
Author Organization [facility] [place] [address] Address [address] [place] [address] Care Team Providers Care Breast Buffer Name Role Phone Ellasimone Tania JOHN Primary Care Pr ovider Allergies Active Allergy Reactions Criticality Noted Date Comments Azithromycin Nausea only,Itching Low Erythromycin Itching Low 02/08/2018 Sulfa (Sulfonamide Antibiotics) Nausea only,Itching Low Medications buPROPion XL (WELLBUTRIN XL) 150 mg 24 hr tablet Take 1 tablet (150 mg total) by mouth daily Active aspirin 81 mg tablet Take 1 tablet (81 mg total) by mouth daily Active multivitamin-min erals-lutein tablet Take 1 tablet by mouth daily. Active FLUOXETINE 10 mg capsule Take 3 tablet/capsule (30 mg total) by mouth daily 8 Active amLODIPine (NORVASC) 5 mg tablet 8 Active vit C,A-Bx-bgwep-lut ein-zeaxan [id number] dy-dqpn-sq-mg capsule Take 1 capsule by mouth daily. Active diphenhydrAMINE (BENADRYL) 25 mg capsule Take 1 tablet/capsule (25 mg total) by mouth every 6 (six) hours as needed for itching Active levothyroxine (SYNTHROID) 75 mcg tablet Take 1 tablet (75 mcg total) by mouth vehicle trimmer before breakfast Active calcium carbonate/vitami n D3 (CALCIUM 600 + D,3, ORAL) Take by mouth Active red yeast rice 600 mg tablet Take by mouth Ac tive pitavastatin calcium (Livalo) 1 mg tablet Take 1 tablet (1 mg total) by mouth nightly 90 tablet 2 3 Active loratadine (CLARITIN) 10 mg tablet Take 1 tablet (10 mg total) by mouth daily Active selenium 200 mcg tablet Take by mouth Active magnesium glycinate 100 mg tablet Take by mouth Active cholecalciferol (Vitamin D3) 1,000 unit capsule Take 1 capsule (1,000 Units total) by mouth daily Active lycopene-lutein- fruit extract 5-6-150 mg capsule Take by mouth Active pantoprazole DR (PROTONIX) 40 mg EC tablet Take 1 tablet (40 mg total) by mouth as needed Active ezetimibe (ZETIA) 10 mg tablet TAKE 1 TABLET BY MOUTH EVERY DAY 90 tablet 3 5 Active triamcinolone (KENALOG) 0.1 % cream APPLY A THIN LAYER TO THE AFFECTED AREAS OF FACE BY TOPICAL ROUTE 2 TIMES PER DAY 5 Active nitrofurantoin monohydrate (MACROBID) 100 mg capsule Take 1 capsule (100 mg total) by mouth 2 (two) times a day 5 Active Active Problems Problem Noted Date Diagnosed Date Renovascular hypertension 06/20/2024 Sjogren's syndrome 12/23/2023 ILD (interstitial lung disease) 10/08/2022 Encounters Date Type Department Care Team Description 12/28/2024 10:15 AM CDT Office Visit [facility] Medicine Pulmonary [address] [facility] 8th [place] [address] [place] [phone] Rajesh Mesa MD Sjogren's syndrome with lung involvement (HCC) (Primary Dx); ILD (interstitial lung disease) (HCC) 12/28/2024 9:23 AM CDT - 12/28/2024 11:59 PM CDT Hospital Encounter [facility] Medicine Pulmonary [address] [facility] [address] [place] [address] ILD (interstitial lung disease) (HCC) Discharge Disposition: Discharge to home or self care from Last 3 Months Immunizations Immunization Administration Dates Next Due Influenza, Unspecified 01/28/2023 Moderna SARS-CoV-2 Monovalent Vaccination (12+ Y RS) 02/15/2023 Pneumococcal Conjugate Pcv20 05/04/2023 RSV Vaccine, Pref, Recombina nt, Subunit, Adjuvanted, PF, IM (Arexvy) 03/14/2023 Surgical History Surgery Date Site/Laterality Comments TUBAL LIGATION 1980 FRACTURE SURGERY 12-17-18 and 06-24-23 ( no surgery this time) CATARACT EXTRACTION [id number] Medical History Medical History Date Comments Hypertension Hypertension Hx Other 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 Depression Mid ' Thyroid disease 2016 Arthritis A decade ago [...] on file Legal Sex Female 12:10 PM CERTIFIED REGISTERED NURSE ANESTHETIST Gender Identity Female 06/06/2023 3:22 PM CERTIFIED REGISTERED NURSE ANESTHETIST Sexual Orientation Not on file Obstetrics History Last Filed Vital Signs Vital Sign Reading Time Taken Comments Blood Pressure 123/68 12/28/2024 10:06 AM CDT Pulse 85 12/28/2024 10:06 AM CDT Temperature 36.4 C (97.5 F) 12/28/2024 10:06 AM CDT Respiratory Rate 18 12/28/2024 10:06 AM CDT Oxygen Saturation 98% 12/28/2024 10:06 AM CDT Inhaled Oxygen Concentration - - Weight 50.8 kg (112 lb) 12/28/2024 10:06 AM CDT Height 161.3 cm (5' 3.5) 12/28/2024 10:06 AM CD T Body Mass Index 19.53 12/28/2024 10:06 AM CDT Plan of Treatment Health Maintenance Due Date Last Done Comments Depression Screening 1945 Fall Risk Assessment 1945 Hepatitis B Screening 1962 Well Visit 65+ 2009 DTaP/Tdap/Td Vaccine (2 - Td or Tdap) 09/29/2016 09/29/2006 Covid-19 Vaccine (5 - 2025-2 6 season) 2024 02/15/2023, 03/18/2021, 06/30/2020, Additional history exists Influenza Vaccine (#1) 2024 , 01/28/2023, 01/20/2022, Additional history exists Osteoporosis Screening-Bone Density Scan 11/15/2025 11/16/2023, 11/16/2023 Pneumococcal vaccine 65+ Completed 024, 08/25/2016, 03/26/2015, Additional history exists Zoster Vaccine Completed 01/27/2024, 06/21/2023 Procedures Procedure Name Priority Date/Time Associated Diagnosis Comments PULMONARY FUNCTION TEST (PFT) Routine 12/28/2024 9:55 AM CDT ILD (interstitial lung disease) (HCC) from Last 3 Months Results * Pulmonary Function Test - (12/28/2024 9:55 AM CDT) FVC PRE 2.15 L [facility] FVC %PRE PRED 86 % [facility] FEV1 PRE 1.75 L [facility] FEV1 %PRE PRED 92 % [facility] FEV1/FVC PRE 81.3 % [facility] Anatomical Region Laterality Modality PFT 12/28/2024 9:29 AM CDT Narrative 12/28/2024 3:11 PM CDT Table formatting from the original result was not included. [facility] Division of Pulmonary & Critical Care Medicine [address] [place] [address]; [facility]; [place] [address]; [phone] Pulmonary Function Laboratory Pulmonary Stress Test Simple/Oxygen Assessment Patient: Edna Morfin Date: 12/28/2024 : 1945 Ht: 63.5 IN Wt: 112 LBS Time (min) Distance (ft)/ Ortez O2 L/M SpO2 HR Black* BP FEV1 % Pred Rest: RA 100 75 0 144/72 1.74 91 % Walk/Bike: 1 RA 100 91 0 2 RA 100 105 0 3 RA 100 106 0 4 RA 100 105 0 5 RA 100 104 1 6 min 0 sec RA 100 104 1 Recovery: 1 RA 100 96 0.5 134/69 1.76 96% 3 RA 100 84 0 *Black rate of perceived exertion (1-10 dyspnea scale) Phillip, CHEST 2003; 123:1408 Walk Test Summary: Six Minute Walk Distance: 890 ft Six-minute Walk Work [distance (m) x body wt (kg)]: 51892 kg.m (normal >60,000kg.m) Oxygen required to maintain SpO2 greater than 90% during six minutes of walkin L/M Comments: O2A Interpretation: Breathing room air, SpO2 is normal at rest and during exercise sufficient to increase pulse, SpO2 is stable. On this basis, SpO2 is adequate at rest breathing room air and while walking breathing room air. This level of exercise is associated with no significant change of FEV1. By signing this report, the attending pulmonary physician certifies that he/she has personally reviewed and interpreted the graphic and numerical data associated with this pulmonary function study and has reviewed and /or edited a preliminary draft report and agrees with the written final report. PFT performed at:->[facility] Adult PFT Lab- [facility]8D Procedure:->Spirometry Procedure:->Oxygen Assessment Titration Pulmonary Function Test Interpretation SPIROMETRY: Spirometry is normal. The flow volume loop is normal. Impression: There is no ventilatory defect. Compared with most recent study, there has been no significant interval change. The attending pulmonary physician certifies a physician presence in the [facility] during the administration of aerosolized bronchodilator. The attending pulmonary physician certifies that he/she has reviewed and interpreted the graphic and numerical data of this pulmonary function study and agrees with the written final report. The lower limit of normal for PaO2 and %HbO2 is age dependent. However, the [facility] Pulmonary Function Laboratory defines hypoxemia as a PaO2 <56 mm Hg or a %HbO2 <89%. Starting on April of 2024 the [facility] Pulmonary Function Laboratory utilizes race neutral GLI Global normative equations. Rajesh Mesa MD PFT ORDERABLES Final Result from Last 3 Months Insurance UHC MEDICARE ADVANTAGE AETNA MEDICARE [facility] MEDICARE Care Teams Breast Buffer Relationship Specialty Start Date End Date Tania Davis PA PCP - General Physician Cement Block Maker 02/08/18
== END 2025-01-03 16:15 | disposition home or self-care (01) ==
LOC: ANHFOHIMG 16:16
PROVIDERS: PCP Physician Assistant; Visit Provider Obstetrics & Gynecology
DX: Z12.31 Encounter for screening mammogram for malignant neoplasm of breast (principal)
CPT/HCPCS: 77063; 77067

== ENCOUNTER 2025-01-28 06:54 | Outpatient (CLI) | payer MEDICARE, SELFPAY ==
--- OUTSIDE RECORDS SUMMARY | 2025-01-28 07:03 | XMS_ITS | Encounter Summary ---
Author Organization [facility] Address [address] [place] [address] Care Team Providers Care Sdc Teacher Name Role Phone Patricia Vaca Primary Care Prov ider Unavailable Tania Moreau Primary Care Pr ovider Tania Moreau Primary Care Pr ovider Encounter Details Date Type Department Care Team (Late Contact Info) Description 02/02/2022 Telephone [facility] Rhe[facility]ology - Third Level [address] [facility], [place] [address] Primo Yanez MD [facility] [facility] 2L [place] [address] Social History Tobacco Use Types [...] Department Care Team (Late Contact Info) Description 02/05/2025 3:00 PM CDT Appointment [facility] OP [address] [place] [phone] Joy Lauren APRN-CNP [address] [place] [address] 02/07/2025 11:50 AM CDT Office Visit [facility] - Orthopedic Surgery [address] [place] [phone] Joy Lauren, COMMUNICATION PROFESSOR-DAIRY WORKER [address] [place] [address] 09/11/2025 1:30 PM CDT Office Visit [facility] - Orthopedic Surgery [address] [place] [phone] Braxton Wilkins MD [address] [place] [address] 10/31/2025 12:40 PM CDT Office Visit [facility] - Rheumatology [address] [facility], [address] [place] [address] Caden Rodriguez DO [address] [facility] [address] [place] [address] documented as of this encounter Visit Diagnoses Not on filedocumented in this encounter Additional Health Concerns Infection Onset Date Last Indicated Resolved Time COVID-19 Under Investigation 06/29/2023 06/29/2023 06/29/2023 5:02 PM CDT documented as of this encounter Care Teams Sdc Teacher Relationship Specialty Start Date End Date Patricia Vaca APRN-DAIRY WORKER Update Information PCP - General 02/01/22 02/24/22 Tania Moreau PA [address] [place] [address] [place] [phone] PCP - General Physician Architectural Wood Model Maker 02/25/22 05/20/22 Tania Moreau PA [address] [place] [phone] PCP - General Physician Architectural Wood Model Maker 11/03/23 documented as of this encounter
--- OUTSIDE RECORDS SUMMARY | 2025-01-28 07:03 | XMS_ITS | Patient Health Record ---
Author Organization [facility] santi Address [address] [facility] [address] [place] [address] Support Name Relationship Address Phone Mercedes Morfin Guarantor Unknown [phone] Reason For Referral No Information Medications Medication SIG (Take, Route, Frequency, Duration) Notes Start Date End Date Status Ocuvite Adult 50+ per eye doctor Oral 08/27/2010 Active Biotin Maximum Strength 73789 MCG 1 qd Oral Active Aspirin 81 MG 1 Every Day Oral 10/11/2005 Active Caltrate 600mg once daily in addition to other calcium *Reorder from [employer] for eRx and Interaction Alerts* 08/27/2010 Active Centrum Silver 1 Every Day Oral 10/11/2005 Active Immunizations Vaccine Route Administration Date Status Comme nts Infuenza, trivalent, recombinant, preservative free Unknown 12/29/2009 Administered migrated LegPatid= [id number] Date=02/17/1999 Vac= Influenza Infuenza, trivalent, recombinant, preservative free Unknown 02/08/2013 Administered [facility] [phone] Infuenza, trivalent, recombinant, preservative free Unknown 01/12/2014 Administered wal Infuenza, trivalent, recombinant, preservative free Unknown 01/02/2015 Administered [facility] [phone] Pneumococcal conjugate PCV 13 Unknown 01/09/2010 Administered migrated LegPatid= [id number] Date=01/09/2010 Vac= pneumococcal Pneumococcal conjugate PCV 13 IM Intramuscular 03/25/2014 Administered Pneumococcal conjugate PCV 13 IM Intramuscular 03/26/2015 Administered Tdap Unknown 09/29/2006 Administered migrated LegPatid= [id number] Date=09/29/2006 Vac= Tdap Problems Problem Type SNOMED Code ICD Code Onset Dates Problem Status W/U Status Risk Notes Problem Pathological fractur e of vertebra (disorder) (013729986) 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 Getting [place], sees trimming inspector for osteopenia and saw pain management Problem Major depression, single episode (90399431) Major depressive disorder, single episode, unspecified (F32.9) Active confirmed 03/23/2013 - Dr Gonzalez is moving sees Dr Gonzalez, on wellbutrin/p rozac Problem Allergic rhinitis (72191838) Allergic rhinitis, unspecified (J30.9) 2005 Active confirmed all year, Zyrte Problem Gastro-esophageal reflux disease with esophagitis (292266738) Gastro-esophag eal reflux disease with esophagitis (K21.0) 2011 Active confirmed 02/16/2012 on omeprazole, Step down to Zantac (osteopenia) Problem Low back pain (569183606) Low back pain (M54.5) 2005 Active confirmed Problem Disorder of bone (91793012) Other specified disorders of bone density and structure, unspecified site (M85.80) 2006 Active confirmed compression fracture L2-3 11/2011, took Fosamax 5-10 yrs per trimming inspector, Off in 2009 Problem Chronic kidney disease stage 3 (disorder) (076845827) Chronic kidney disease, stage 3 (moderate) (N18.3) Active confirmed ., no renal US yet Problem SI - Stress incontinence (07958752) Stress incontinence (female) (male) (N39.3) 2005 Active confirmed urge incontinence , meds caused dry mouth, per urologist Problem Palpitations (34227685) Palpitations (R00.2) 2005 Active confirmed resolved Problem Amnesia (74479441) Other amnesia (R41.3) 2014 Active confirmed Problem Elevated levels of transaminase & lactic acid dehydrogenase (285164537) Nonspecific elevation of levels of transaminase and lactic acid dehydrogenase [LDH] (R74.0) Active confirmed ast alt 36/41 Problem Pure hypercholesterolemia (930906281) Pure hypercholester olemia, unspecified (E78.00) Active confirmed 09/15/2012 - 93/50/60 no meds red yeast rice 02/21/2012 - 187/50/72, none, Diet, etc, consider medication Plan Of Treatment No Information Insurance Providers Payer Name Payer Address Payer Phone Subscriber Number Group Number Insured Name Patient Relationship to Insured Coverage Start Date Coverage End Date DO NOT USE - [employer] [address] [address] [place], [place] [id number] Mercedes Morfin Self - patient is the insured 4 [employer] [place] [address] [place] [address] [id number] Mercedes Morfin Self - patient is the insured 2 [email or web address] - Open Access [address] [place], [place] [id number] Mercedes Morfin Self - patient is the insured 2 Medical (General) History Surgical History Surgery Date(Month/Year) T&A: as a child; 2012-02-16 Tubal ligation: laparoscopic by cautery; 2012-02-16
--- OUTSIDE RECORDS SUMMARY | 2025-01-28 07:04 | XMS_ITS | Clinical Summary ---
Author Organization [facility] Address [address] [facility] [place] [address] Care Team Providers Care Installation Superintendent Name Role Phone Tania Moreau Primary Care Pr ovider Source Comments [facility],non-owned Affiliates and Associated Physician Practices is amultiple site organization consisting of ambulatory clinics and hospital sitesin [place], [place], [place] and [place]. This disclosure is being madepursuant to the Care Everywhere program and may not contain all information available regarding this patient. Last updated 17.[facility] Allergies Active Allergy Reactions Criticality Noted Date [...] (one) tablet by mouth once daily Active fish oil/omega-3 fatty acids (Promega;Cardi-O art 3) 1000 MG capsule Take 1 (one) capsule by mouth daily with food Active diphenhydrAMINE (Allergy Relief) 25 MG tablet Take 1 (one) tablet by mouth once daily Active Active Problems Problem Noted Date Diagnosed Date Age-related osteoporosis dina benoit current pathological fracture 11/02/2023 Assessment & Plan [...] future fracture risk and will refer to [facility] for consultation and further discussion/recommendations. Assessment & Plan (11/02/2023 11:36 AM CDT): Has experienced now 2 hip fractures (s/p Rt ROB) with most recent 06/23/2023 proximal femoral shaft fracture and need follow up DEXA for osteoporosis concerns. Edna Morfin has been encouraged to take supplemental qkkn-fze-xtdxtsw (preferably calcium citrate) 7876-3248 mg and vitamin D3 1000 IU daily [...] Encounters Date Type Department Care Team Description 01/16/2025 1:00 PM CDT Office Visit [facility] Group - Orthopedic Surgery [address] [place] [phone] Joy Lauren, PUBLICITY DIRECTOR-JUNIOR NETWORK ENGINEER Age-related osteoporosis without current pathological fracture (Primary Dx); Periprosthetic fracture of hip, subsequent encounter 01/16/2025 Travel 11/09/2024 Travel 10/31/2024 12:40 PM CDT Office Visit [facility] - Rheumatology [address] [place] [address], [address] [place] [address] Caden Rodriguez DO Scleroderma, limited [...] Recorded Patient Health Questionnaire-2 Score 1 10/31/2024 [facility] [place] of Occupat ional Health - Occupational Stress [...] place to sleep or slept in a mcc (including now)? No 06/23/2023 Comments No Sex [...] CDT Inhaled Oxygen Concentration - - Weight 51.3 kg (113 lb) 01/16/2025 1:06 PM CDT Height 162.6 cm (5' 4) 01/16/2025 1:06 PM CDT Body Mass Index 19.4 01/16/2025 1:06 PM CDT Plan of Treatment Upcoming Encounters Date Type Department Care Team (Late st Contact Info) Description 02/05/2025 3:00 PM CDT Appointment [facility] DIAGNOSTIC RAD OP [address] [place] [phone] Joy Lauren, PUBLICITY DIRECTOR-JUNIOR NETWORK ENGINEER [address] [place] [phone] 02/07/2025 11:50 AM CDT Office Visit [facility] - Orthopedic Surgery [address] [place] [phone] Joy Lauren, PUBLICITY DIRECTOR-JUNIOR NETWORK ENGINEER [address] [place] [phone] 09/11/2025 1:30 PM CDT Office Visit [facility] - Orthopedic Surgery [address] [place] [address] Braxton Wilkins MD [address] [facility] [address] [place], [place] [phone] 10/31/2025 12:40 PM CDT Office Visit [facility] - Rheumatology [address] [facility], [address] [place] [address] Caden Rodriguez DO [address] [facility] [address] [place] [address] Health Maintenance Due Date Last Done Comments DTAP/TDAP/TD VACCINES (1 - Tdap) 08[birth year]18/1964 ZOSTER VACCINE (1 of 2) 1994 PNEUMOCOCCAL VACCINE 50+ (2 of 2 - PCV20 or PCV21) 08/25/2017 08/25/2016 Respiratory Syncytial Virus (RSV) Vaccine Pt: or over 60 yrs (1 - 1-dose 75+ series) 08/18/2019 MEDICARE AWV CALENDAR YEAR 2024 COVID-19 VACCINE ( season) 2024 02/15/2023, 03/18/2021, 06/30/2020, Additional history exists INFLUENZA VACCINE (#1) 2024 4, 01/28/2023, 01/20/2022, Additional history exists BONE DENSITY [...] Recently Relevant to Health Maintenance Insurance AETNA AETNA MEDICARE ADV Advance Directives * Full Code (Latest Code Status on File) Date Activated Date Inactivated Comments 06/23/2023 9:07 AM 06/29/2023 8:41 PM Care Teams Installation Superintendent Relationship Specialty Start Date End Date Tania Moreau PA [address] [place] [phone] PCP - General Physician Contracting Engineer 11/03/23
--- OUTSIDE RECORDS SUMMARY | 2025-01-28 07:04 | XMS_ITS | Data Portability ---
Author Organization [facility] JEREMYM[place] Address [address] [facility], [place] [address] Care Team Providers Care Medical Information Specialist Name Role Phone SYDNEY PALMER Primary Care [...] dexa scan 11/18/23 Not available 09/26/2024 14:17:29 11/21/2024 11/21/2024 cologuard negative 03/2024. Not available 11/21/2024 15:55:01 Plan of Treatment Reminders Order Date Submit Date Provider Last Modified By Organization Details Last Modified Time Details Appointments ANY 15 2025 02:15P DORA Martin Not available Not available Not available Lab TSH + free T4, serum 04/17/2 026 [facility], [address], [address], 11/21/2024 15:59:30 CBC w/ auto diff [address] [facility], [address] [place] [address], [id number], 11/21/2024 15:59:30 hepatic function panel, serum [address] [facility], [address] [place] [address], [address], 11/21/2024 15:59:30 BMP, serum or plasma [address] [facility], [address] [place] [address], [address], 11/21/2024 15:59:30 vitamin B12 + folate, serum or blood [address] [facility], [address] [place] [address], [address], 11/21/2024 15:59:30 lipid panel, serum [address] [facility], [address] [place] [address], [address], 11/21/2024 15:59:30 CBC w/ auto diff 2024 025 [facility], [address] [place] [address], [address], 10/15/2024 09:40:08 hepatic function panel, serum 2024 025 [facility], [address] [place] [address], [address], 10/18/2024 15:03:18 BMP, serum or plasma 2024 025 [facility], [address] [place] [address], [address], 10/15/2024 12:19:12 lipid panel, serum 2024 025 [facility], [address] [place] [address], [address], 10/15/2024 12:19:12 TSH + free T4, serum 2024 025 [facility], [address] [place] [address], [address], 10/15/2024 12:19:12 alkaline phosphata se isoenzyme s, serum or plasma [address] [facility], [address] [place] [address], [address], 05/09/2024 16:40:07 CBC w/ auto diff [address] [place] [address] Lab, [address] [place] [address], [address], 05/07/2024 16:01:28 hepatic function panel, serum [address] [place] [address] Lab, [address] [place] [address], [address], 05/07/2024 15:59:16 BMP, serum or plasma [address] [place] [address] Lab, [address] [place] [address], [address], 05/07/2024 16:00:01 lipid panel, serum [address] [place] [address] Lab, [address] [place] [address], [address], 05/07/2024 16:01:51 vitamin D, 25-hydrox y, total, serum [address] [place] [address] Lab, [address] [place] [address], [address], 05/07/2024 16:01:24 TSH + free T4, serum [address] [place] [address] Lab, [address] [place] [address], [address], 05/07/2024 16:01:00 CBC w/ auto diff 2023 024 [facility], [address] [place] [address], [address], 10/21/2023 09:51:03 hepatic function panel, serum [email or web address] [facility], [address] [place] [address], [address], 11/18/2023 11:53:30 BMP, serum or plasma [address] [facility], [address] [place] [address], [address], 11/23/2023 11:35:58 vitamin B12 + folate, serum or blood 2023 024 [facility], [address] [place] [address], [address], 10/21/2023 12:08:24 lipid panel, serum 2023 024 [facility], [address] [place] [address], [address], 10/21/2023 12:08:24 vitamin D, 25-hydrox y, total, serum [facility] [address] [place] [address], [address], 11/16/2023 12:09:34 TSH + free T4, serum [address] [facility], [address] [place] [address], [address], 11/23/2023 11:35:58 Referral None recorded. Procedures None recorded. Surgeries None recorded. Imaging US, liver - also comment on gallbladd er 2023 024 [facility] (Imaging), [address] [place], [place] [address] [address] [place] [address], [phone], 06/05/2024 15:58:33 Medication Orders triamcino lone acetonide 0.1 % topical cream 2024 025 [id number], [address] [place], [address], 09/26/2024 14:39:56 Patient TargetsNo targets recorded. Patient Instructions Encounter Date Encounter Id Patient Instructions Last Modified By Organization Details Last Modified Time 09/26/2024 [id number] A healthy lifestyle: care instructions Not available 09/26/2024 14:37:06 11/21/2024 [id number] advance care planning: care instructions Not available 11/21/2024 15:59:30 preventing falls : care instructions Not available 11/21/2024 15:59:30 Quitting Tobacco : Care Instructions [email or web address] Not available 11/21/2024 15:59:30 [email or web address] Not available 11/21/2024 15:59:30 eating healthy foods: care instructions Not available 11/21/2024 15:59:30 AD8 Dementia Screening Interview Not available 11/21/2024 15:59:30 Reason for Referral None Reported. Results Created [...] of 10,00 0 indiv idual s at [place] risk for color ectal cance r who were scree alvaro with both Colog uard and colon oscop y. (Lucrecia Penaloza al, N Engl J Med 2014; 370(1 4):12 86-12 97) The alonzo l value (refe rence range ) for this assay is negat rosalina. COLOG UARD RE-SC REENI NG RECOM MENDA TION: Perio dic color ectal cance r scree blanca is an impor tant part of preve ntive healt hcare for asymp tomat ic indiv idual s at [place] risk for color ectal cance r. Follo [...] ml.; Jesús BRYANT, Javid walls CR, Alirio BurkK, Color ectal Cance r Scree blanca: Recom menda tions for Physi cians and Patie nts from the [place]. Multi -Soci ety Task Force on Color ectal Cance r Scree blanca , Am J Gastr oente rolog y 2017; 112:1 016-1 030. TEST DESCR IPTIO N: [place] site algor ithmi c arely sis of stool DNA-b iocleveland kerharoon with hemog lobin immun oassa y. Quant itati ve value s of indiv idual bioma rkers are not repor table and are not assoc iated with indiv idual bioma rker resul t refer ence range s. Colog uard is inten ded for color ectal cance r scree blanca of adult s of eithe r sex, 45 years or older , who are at [facility] for color ectal cance r (CRC) . Colog uard has been appro kobe for use by the [place]. FDA. The perfo rmanc e of Colog uard was estab lishe d in a cross secti onal study of [facility] adult s aged 50-84 . Colog uard [...] study of 0 indiv idual s at [facility] risk for color ectal cance r who were scree alvaro with both Colog uard and colon oscop y. (Lucrecia Barnett et al, N Engl J Med 2014; 370(1 4):12 86-12 97.) Colog uard may produ ce a false negat rosalina or false posit orsalina resul t (no color ectal cance r [...] ution s can be found at [email or web address] [email or web address] om. Not Available [employer] [address], [place], [address], 03/30/2024 21:21:26 11/18/19 24 11/16/2023 DEXA No observ ation record ed. [address]) [address] [facility], [place], [address], 11/18/2023 17:58:20 11/22/19 24 11/18/2023 DEXA No observ ation record ed. [address] [facility] [address], [place], [address], 04/10/2024 15:26:45 12/22/19 24 12/21/2023 MAMMO , scree blanca, digit al, bilat eral No observ ation record ed. [address], [address], 04/10/2024 15:26:41 02/23/20 24 02/23/2024 US, duple x, renal arter y No observ ation record ed. [address] [address], [place], [address], 04/10/2024 15:26:39 04/19/19 25 11/19/2022 MAMMO , scree blanca, digit al, bilat eral No observ ation record ed. BAR[facility] Not Available 2024 19:59:40 06/05/19 25 06/05/2024 US, liver No observ ation record ed. [address], [address], 06/06/2024 10:42:37 01/05/20 25 01/03/2025 MAMMO , scree blanca, digit al, bilat eral No observ ation record ed. [facility] [address], [place], [address], 01/04/2025 14:55:09 Result Notes None recorded. Problems Name Problem SNOMED Code Status Onset Date Resolution Date Notes Provider Name and Address Organization Details Recorded Time Hypertensive disorder 33225370 Active 2023 Concepción Aguilera null, [place] - [facility] 4 10:22:26 Hypothyroidism 19699718 Active 2023 Concepc[place] [facility] 4 10:22:33 Gastroesophage al reflux disease 613644382 Active 2023 Concepción [place] [facility] 4 10:22:37 Hyperlipidemia 95647764 Active 2023 DORA Cristobal Attn: Marcella g,[address] [facility], [place], [address], [place] - [facility] 4 15:44:30 Body mass index 20-24 - normal 431658351 Active 2023 DORA Cristobal Attn: Zoilain g,[address] [facility], [place], [address], [place] [facility] 4 14:09:01 History of hip fracture 779524394 Active 2023 DORA Cristobal Attn: Marcella g,[address] [facility], [place], [address], [place] [facility] 4 14:09:02 Long-term drug therapy Active 2023 DORA Cristobal Attn: Zoilain g,[address] [facility], [place], [address], [place] [facility] 4 14:09:03 Gastroesophage al reflux disease without esophagitis 848668143 Active 2023 DORA Cristobal Attn: Accountharjinder g,[address] [facility], [place], [address], [place] [facility] 4 14:09:04 Benign essential hypertension 4461092 Active 2023 DORA Cristobal Attn: Marcella g,[address] [facility], [place], [address], [place] [facility] 4 14:09:06 Depressive disorder 54048444 Active 2023 DORA Cristobal Attn: Accountin g,[address] [facility], [place], [address], [place] [facility] 4 14:11:43 Body mass index less than 20 286105153 Active 2023 DORA Cristobal Attn: Accountin g,[address] [facility], [place], [address], [place] [facility] 4 15:40:20 Alkaline phosphatase above reference range 357032063 Active 2024 DORA Cristobal Attn: Accountin g,[address] [facility], [place], [address], [place] [facility] 5 13:38:44 Normal weight 67553616 Active 2024 DORA Cristobal Attn: Marcella g,[address] [facility], [place], [address], [place] - [facility] 5 15:43:58 Problem Notes None recorded. Procedures Surgical History Date Name Laterality Status Provider Name and Address Organization Details Recorded Time 06/10/19 24 total replacement of hip completed Imelda Fisher [place] [facility] 10/05/2023 15:14:49 Eye Surgery completed Imelda Fisher MA [facility] 10/05/2023 15:45:20 Tonsillectomy completed Imelda Fisher [place] [facility] 10/05/2023 15:45:27 excision of bilateral fallopian tubes and ovaries completed Imelda Fisher [place] [facility] 10/05/2023 15:45:34 Imaging Results None recorded. Procedure Notes None recorded. Medical Equipment None Reported. Allergies Allergen ID Allergen Name Allergen Category Reaction Reaction Severity Criticality Documentation Date Start Date Code Code System Note Provider Name and Address Organization Details Recorded Time 133927 Zithromax medicatio n itching Not available Not available 10/05/2023 88964 4 RxNorm OLIVIA Smart, [facility] 4 15:08:16 247681 Substance with sulfonami de structure and antibacte rial mechanism of action (substanc e) medicatio n Not available Not available Not available 10/05/2023 34489 8003 SNOMED OLIVIA Smart, [facility] 4 15:08:22 Medications Name Sig Start Date Stop Date Status Note LastModified by Organization Details LastModified Time amlodipine 5 mg tablet Take 1 tablet every day [...] Not Available Not Available Not Avai lable amlodipine 10 mg tablet 03/28 completed Not Available Not Available Not Available pantoprazol e 40 mg tablet,matheus yed release Take 1 tablet every day by oral route for 90 days. active Not Available Not Available No t Available fluoxetine 10 mg capsule TAKE 3 CAPSULE BY MOUTH EVERY DAY 2024 active Not Available Not Available Not Avai lable fluoxetine 20 mg capsule Take by oral route for 14 days. 03/28 completed Not Available Not Available Not Available ezetimibe 10 mg tablet TAKE 1 TABLET BY MOUTH EVERY DAY active Not Available Not Available No t Available bupropion HCl XL 150 mg 24 hr tablet, extended release Take 1 tablet every day by [...] 09/26/2024 130/80 mm[Hg] DORA Cristobal Attn: Accounting,[address] [place], [address], [facility] 09/26/2024 14:37:28 Date Recorded Body height Body mass index (BMI) Body weight Oxygen saturation Oxygen saturation in Arterial blood by Pulse oximetry Heart rate Respiratory rate Systolic And Diastolic Provider Name and Address Organization Details Last Updated DateTime 5 160.02 cm 18.4 kg/m2 58978.6 1 g 98 % 98 % 74 /min 20 /min 120/78 mm[Hg] Imelda Fisher MA [facility] 5 14:13:05 Date Recorded Body weight Respiratory rate Body mass index (BMI) Body height Oxygen saturation Oxygen saturation in Arterial blood by Pulse oximetry Heart rate Systolic And Diastolic Provider Name and Address Organization Details Last Updated DateTime 4 22718.3 3 g 20 /min 20.3 kg/m2 160.02 cm 98 % 98 % 76 /min 138/82 mm[Hg] Imelda Fisher MA [facility] 4 15:21:51 Date Recorded Systolic And Diastolic Provider Name and Address Organization Details Last Updated DateTime 11/21/2024 134/80 mm[Hg] DORA Cristobal Attn: Accounting,[address] [place], [address], [facility] 11/21/2024 16:00:26 Date Recorded Body height Body mass index (BMI) Body weight Respiratory rate Oxygen saturation Oxygen saturation in Arterial blood by Pulse oximetry Heart rate Provider Name and Address Organization Details Last Updated DateTime 5 160.02 cm 20 kg/m2 28643.9 4 g 20 /min 97 % 97 % 96 /min Imelda Fisher MA [facility] 5 15:42:28 Date Recorded Systolic And Diastolic Provider Name and Address Organization Details Last Updated DateTime 03/28/2024 134/70 mm[Hg] DORA Cristobal Attn: Accounting,[address] [facility], [place], [address], [place] [facility] 03/28/2024 14:58:04 Date Recorded Body height Body mass index (BMI) Body weight Respiratory rate Oxygen saturation Oxygen saturation in Arterial blood by Pulse oximetry Heart rate Systolic And Diastolic Provider Name and Address Organization Details Last Updated DateTime 160.02 cm 19.8 kg/m2 40584.3 5 g 20 /min 99 % 99 % 67 /min 136/82 mm[Hg] Imelda Fisher [place] [facility] 4 14:38:29 Social History Question Answer Notes LastModified by Organizat ion Details LastModified Time Tobacco Smoking Status Never Smoker Imelda Fisher MA null, [facility] 10/05/2023 15:09:58 Do You Have An Advance Directive? Yes Information not available 10/05/2023 Do You Wear A Helmet When Biking? No Information not available 11/21/2024 Are You Blind Or Do You Have Difficulty Seeing? Yes Information not available 11/21/2024 Is Blood Transfusion Acceptable In An Emergency? Yes Information not available 11/21/2024 What Is Your Level Of Caffeine Consumption? Occasional Soda Information not available 10/05/2023 What Type Of Silk Presser Do You Use? None Information not available 11/21/2024 In The 14 Days Before Symptom Onset, [...] You Following? REGULAR Information not available 10/05/2023 Have There Been Any Changes To Your Family Or Social Situation? No Information no t available 11/21/2024 What Is The Fluoride Status Of Your Home? Unknown Information not available 11/21/2024 Are There Any Guns Present In Your Home? No Information not available 10/05/2023 Which Of Your Hands Is Dominant? Right Information not available 11/21/2024 Do You Use Insect Repellent Routinely? No Information not available 11/21/2024 In The Past 7 Days, How Many Days Did You Exercise? 2 Information not available 11/21/2024 On The Days When You Exercised, How Long Did You Exercise Each Day (in Minutes)? 60 Information not available 11/21/2024 How Intense Was Your Typical Exercise? Moderate (brisk Walking) 2x A Week Information not available 11/21/2024 In The Past 7 Days, How Much Pain Have You Warrens? Some Information not available 11/21/2024 In General, Would You Say You Health Is: Very Good Information not available 11/21/2024 How Would You Describe The Condition Of Your Mouth And Teeth- Including False Teeth Or Dentures? Excellent Information not available 11/21/2024 Each Night, How Many Hours Of Sleep Do You Get? 6 Information no t available 11/21/2024 Has Anyone Ever Told You That You Snore? No Information not available 11/21/2024 In The Past 7 Days, How Often Have You Warrens Sleepy In The Daytime? Sometimes Information not available 11/21/2024 On They Days When You Drank Alcohol, How Often Did You Have 4 Or More Drinks At A Time? Never Information no t available 11/21/2024 # Alcohol Drinks Per Week 0 Information not available 11/21/2024 Do You Have A Medical Power Of Manager Of Tires Sales? No Information not available 11/21/2024 What Was The Date Of Your Most Recent Tobacco Screening? 11/21/2024 Information not available 11/21/2024 How Many Children Do You Have? 2 Information not available 11/21/2024 Do You Have Any Pets? Yes Information not available 11/21/2024 What Is Your Relationship Status? Information not available 10/05/2023 Do You Use Your Seat Belt Or Car Seat Routinely? Yes Information not available 10/04/2023 Are You Sexually Active? No Information not available 11/21/2024 Do You Have Smoke And Carbon Monoxide Detectors In Your Home? Yes Information not available 10/04/2023 Are You Passively Exposed To Smoke? No Information no t available 11/21/2024 Do You Participate In Social Media? Yes Facebook Information not available 11/21/2024 What Types Of Sporting Activities Do You Participate In? PT Information not available 11/21/2024 Do You Use Sunscreen Routinely? No Information not available 10/05/2023 Has Tobacco Cessation Counseling Been Provided? Yes Information not available 10/04/2023 On What Date Was Tobacco Cessation Counseling Provided? 11/21/2024 Information not available 11/21/2024 Are You Currently In School? No Information not available 11/21/2024 Sex: Female Functional Status Question Answer Note LastModified by Organizat ion Details LastModified Time Do you use any illicit or recreational drugs? No Information not available 10/05/2023 Do you or have you ever used any other forms of tobacco or nicotine? No Information not available 10/05/2023 What is your level of alcohol consumption? Occasional Information not available 10/05/2023 Are you currently employed? No Information not available 11/21/2024 Are you able to care for yourself independently? Yes Information not available 10/04/2023 What type of noise exposure are you exposed to? Other Dog Barking/ smoke alarms Information not available 11/21/2024 Mental Status Question Answer Note LastModified by Organization D etails LastModified Time Do you feel stressed (tense, restless, nervous, or anxious, or unable to sleep at night)? [id number] Information not available 11/21/2024 Family History Relationship Description Onset Age of [...] Response Coronary Artery Disease N Other N Atrial Fibrillation N High Blood Pressure Y Depression Y COPD N Blood Clots N Anxiety Disorder Y Muscle, Joint, or Bone Problems Y Acid Reflux (GERD) N Cancer N Stroke N High Cholesterol N Liver Disease N Headaches N Kidney or Bladder Problems Y Thyroid Problems N GI Problems N Skin Problems N Anemia N Heart Attack ([place]) N Diabetes N Seizures/Epilepsy N Asthma N Allergies Y Hepatitis N Osteoporosis N Heart Failure N Gynecological History Statement/Question Response Menses Monthly [...] [facility] 03/27/2024 15:07:16 Pneumococcal conjugate PCV20, polysaccharide [id number] conjugate, adjuvant, PF 4 completed OLIVIA Smart, [...] Influenza, split virus, trivalent, PF 5 completed Imelda [place] [facility] 03/27/2024 15:07:16 Influenza, split virus, quadrivalent, PF 8 completed Imelda [place] [facility] 03/27/2024 15:07:16 Influenza, split virus, quadrivalent, PF 2 completed Imelda [place] [facility] 03/27/2024 15:07:16 Influenza, split virus, quadrivalent, PF 1 completed Imelda [place] [facility] 03/27/2024 15:07:16 COVID-19, mRNA, LNP-S, PF, 50 mcg/0.5 mL 4 completed Not Available [facility] 11/21/2024 15:19:30 zoster recombinant 4 completed Not Available [facility] 11/21/2024 15:19:30 Influenza, high-dose, trivalent, PF 4 completed Not Available [facility] 11/21/2024 15:19:30 Past Encounters Encounter ID Performer Location Encounter Start Date Encounter Closed Date Diagnosis/Indication Diagnosis SNOMED-CT Code Diagnosis ICD10 Code Diagnosis IMO Codes Diagnosis Note [id number] Lupillo Ravi MD [facility] [address] [place] [address] 10/05/2023 15:01:02 10/05/2023 16:14:07 Hypothyroidism 57908664 E03.9 Patient is due for updated thyroid function labs, she is taking levothyrox ine 75 mcg daily Benign ess ential hypertension 6349932 I10 Blood pressure is 138/82 today. The patient is stable on amlodipine 10 mg daily Long-term drug therapy 639004995 Z79.899 All routine labs were ordered today Gastroesop hageal reflux disease without esophagitis 845749110 K21.9 Patient is stable on pantoprazo le 40 mg daily with no symptom issue of breakthrou gh History of hip fracture 327703260 Z87.81 Patient has history of repeat fracture of the hip, vitamin-D lab is ordered. She is up-to-date on DEXA scan. Hyperlipidemia 64502391 E78.5 Patient is due for updated fasting lipid panel. She is taking atorvastat in 1 mg daily from specialist Body mass index 20-24 - normal 399627659 Z68.20 Depressive disorder 3548 9007 F32.A Patient is stable on fluoxetine 20 mg daily and Wellbutrin XL 150 mg daily [id number] Lupillo Ravi MD [facility] [employer] [address] [place] [address] 03/28/2024 14:08:02 03/28/2024 15:56:53 Benign essential hypertension 9278397 I10 Blood pressure is 134/70 today. The patient is stable on amlodipine 5 mg daily Hypothyroidism 14290246 E03.9 Patient is due for updated thyroid function labs, she is taking levothyrox ine 75 mcg daily Hyperlipidemia 70082135 E78.5 Patient is due for updated fasting lipid panel. She is taking pitavastat in 1 mg daily from specialist Depressive disorder 0721 9007 F32.A Patient is stable on fluoxetine 20 mg daily and Wellbutrin XL 150 mg daily Gastroesop hageal reflux disease without esophagitis 843091259 K21.9 Patient is stable on pantoprazo le 40 mg daily with no symptom issue of breakthrou gh Long-term drug therapy 574414340 Z79.899 All routine labs were ordered today to complete in April History of hip fracture 056946796 Z87.81 Patient has history of repeat fracture of the hip, vitamin-D lab is ordered. She is up-to-date on DEXA scan. Alkaline p hosphatase above reference range 447624895 R74.8 Check ultrasound of the liver and alk-phos isoenzymes for noted alkaline phosphatas e of 174 on previous labs Body mass index less than 20 242225892 Z68.1 BMI is 19.8 [id number] Lupillo Ravi MD [facility] [employer] [address] [place] [address] 09/26/2024 14:01:14 09/26/2024 14:52:48 Body mass index less than 20 585523906 Z68.1 845021 BMI is 18.4. Patient has lost some weight and we will continue to monitor this labs are due again in October Benign ess ential hypertension 2478521 I10 Blood pressure is 130/80. The patient is stable on amlodipine 5 mg daily Hypothyroidism 71547685 E03.9 Patient is due for updated thyroid function labs, she is taking levothyrox ine 75 mcg daily Hyperlipidemia 77536134 E78.5 Patient is due for updated fasting lipid panel. She is taking pitavastat in 1 mg daily and Zetia 10 mg daily from specialist Depressive disorder 4184 7413 F32.A Patient is stable on fluoxetine 20 mg daily and Wellbutrin XL 150 mg daily Gastroesop hageal reflux disease without esophagitis 205667143 K21.9 Patient is stable on pantoprazo le 40 mg daily with no symptom issue of breakthrou gh Long-term drug therapy 482087130 Z79.899 CBC liver and kidney panels due in October History of hip fracture 321504897 Z87.81 Patient has history of repeat fracture of the hip, vitamin-D lab is ordered. She is up-to-date on DEXA scan. Alkaline p hosphatase above reference range 437985147 R74.8 Alkaline phosphatas e isoenzymes and liver ultrasound stable Irritant c ontact dermatitis [id number] L24.9 [id number] Refill on steroid cream to use on the dermatitis patch on her right cheek area unknown cause [id number] Lupillo Ravi MD [facility] [address] [place] [id number] 1 11/21/2024 15:18:25 11/27/2024 15:33:33 Adult health examination [id number] Z00.00 Health Risk Assessment collected and reviewed History an d physical examination, annual for health maintenance [id number] Z00.00 [id number] Health Risk Assessment collected and reviewed Normal weight 11631495 Z 68.20 [id number] Benign ess ential hypertension 8336298 I10 Blood pressure is 130/80. The patient is stable on amlodipine 5 mg daily Hyperlipidemia 03774981 E78.5 Patient is due for updated fasting lipid panel. She is taking pitavastat in 1 mg daily and Zetia 10 mg daily from specialist Depressive disorder 3680 [id number] F32.A Patient is stable on fluoxetine 20 mg daily and Wellbutrin XL 150 mg daily Gastroesop hageal reflux disease without esophagitis [id number] K21.9 Patient is stable on pantoprazo le 40 mg daily with no symptom issue of breakthrou gh Acquired hypothyroidism [id number] E03.9 41771 Patient is due for updated thyroid function labs, she is taking levothyrox ine 75 mcg daily Long-term current use of drug therapy [id number] Z79.899 [id number] Health Concerns Section Related Observation LastModified by Organization Detai ls LastModified Time None Recorded Concern Status LastModified by Organization Details LastModified Time None Recorded Advance Directives Directive Y: Payers Insurance Date Sequence Insurance Name Policy Number Policy Contreras Covered Member ID Contreras Member ID Guarantor Name 12/11/2024 1 [employer] (MEDICARE REPLACEMENT/ ADVANTAGE - PPO) [id number] Mercedes Morfin [id number] Mercedes Morfin 09/26/2024 1 [employer] (MEDICARE REPLACEMENT/ ADVANTAGE - PPO) Mercedes Morfin [id number] Mercedes Morfin Notes Date Note Type Note Provider Name and Address Organization Details Recorded Time 4 text/html HypertensionReported by PatientHPIFor duration, patient reportshas noted for years. For onset/timing, patient reportsbetter. For alleviating factors, patient reportsmedication. ThyroidReported by PatientHPIFor context, patient reportshistory of hypothyroidism. For quality, patient reportsnot changing. For duration, patient reportsconstant. For onset/timing, patient reportsstill present. Anxiety/DepressionReporte d by Patientstable on wellbutrin XL 150mg daily and fluoxetine 20mg daily. Reflux/GERDReported by PatientHPIFor duration, patient reportspresent 5 or more years.stable on pantoprazole 40mg daily. DORA Cristobal Attn: Accounting,[address] [place], [address], [facility] 10/16/2023 14:12:18 4 text/html HypertensionReported by PatientHPIFor duration, patient reportshas noted for years. For onset/timing, patient reportsbetter. For alleviating factors, patient reportsmedication.Patient is taking amlodipine 5 mg daily for blood pressure management. She does have a history of renal artery stenosis with vascular stent placed several years ago ThyroidReported by PatientHPIFor context, patient reportshistory of hypothyroidism. For quality, patient reportsnot changing. For duration, patient reportsconstant. For onset/timing, patient reportsstill present. Anxiety/DepressionReporte d by Patientstable on wellbutrin XL 150mg daily and fluoxetine 20mg daily. Reflux/GERDReported by PatientHPIFor duration, patient reportspresent 5 or more years.stable on pantoprazole 40mg daily. DORA Cristobal Attn: Accounting,[address] [facility], [place], [address], [facility] 04/10/2024 15:41:06 5 text/html HypertensionReported by PatientHPIFor duration, patient reportshas noted for years. For onset/timing, patient reportsbetter. For alleviating factors, patient reportsmedication.Patient is taking amlodipine 5 mg daily for blood pressure management. She does have a history of renal artery stenosis with vascular stent placed several years ago ThyroidReported by PatientHPIFor context, patient reportshistory of hypothyroidism. For quality, patient reportsnot changing. For duration, patient reportsconstant. For onset/timing, patient reportsstill present. Anxiety/DepressionReporte d by Patientstable on wellbutrin XL 150mg daily and fluoxetine 20mg daily. Reflux/GERDReported by PatientHPIFor duration, patient reportspresent 5 or more years.stable on pantoprazole 40mg daily. Patient is having some balancing gait weakness in which she has fallen several times and so her orthopedic has her newly put into physical therapy for gait training and strengthening. DORA Cristobal Attn: Accounting,[address] [facility], [place], [address], [facility] 10/08/2024 13:39:36 5 text/html MAW 2Reported by PatientSocial/Behavioral HistoryFor fracture risk, patient reportshistory of fracturesandprevious musculoskeletal injuries. For diet and nutrition, patient reportshealthy diet.Mental Status:For speech/motor difficulties, patient reportsslowed reaction timebut reportsno speech difficulties,no difficulty expressing formulated concepts,no difficulty with fine manipulative tasks,no difficulty writing/copying, anddoes not knock things over when trying to pick them up. For concentration and memory, patient reportsno decreased concentrating ability,no memory lapses or loss, anddoes not forget words.Functional AbilityFor falls risk assessment, patient reportsinjury with fallbut reportsno dizziness/vertigo,fall(s) in the past year 3, andfall(s) since last visit0. For hearing, patient reportsno loss of hearing. For vision, patient reportsno vision problems. For activities of daily living, patient reportsable to bathe with limited or no assistance,able to contol urination and bowels,able to dress with limited or no assistance,able to feed self with limited or no assistance,able to get out of chair or bed with limited or no assistance,able to groom with limited or no assistance, andable to toilet with limited or no assistance. For instrumental activities of daily living, patient reportsable to do house work with limited or no assistance,able to grocery shop with limited or no assistance,able to manage medications with limited or no assistance,able to manage money with limited or no assistance,able to prepare meals with limited or no assistance, andable to use the phone with limited or no assistance. For home safety, patient reportsno unsafe kaylee hazzards,no unsafe stairs,working smoke/co detectors,has hand bars in the bathroom/shower, andgood lighting in the home. DORA Cristobal Attn: Accounting,[address] [place], [address], [place] [facility] 12/09/2024 18:03:00 OBGyn Episode No OBEpisode recorded.
--- OUTSIDE RECORDS SUMMARY | 2025-01-28 07:04 | XMS_ITS | Clinical Summary ---
Author Organization [facility] [address] Address [address] [place] [address] Care Team Providers Care Italian Tutor Name Role Phone Ellasimone Tania JOHN Primary [...] (NORVASC) 5 mg tablet 8 Active vit C,M-De-ptijc-lut ein-zeaxan [phone] fa-bxcz-qu-mg capsule Take 1 capsule by mouth daily. 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 Active calcium carbonate/vitami n D3 [...] Description 12/28/2024 10:15 AM CDT Office Visit [facility] Medicine Pulmonary [address] [facility] [address] [place] [address] [place] [id number] Rajesh Mesa MD Sjogren's syndrome with lung involvement (HCC) (Primary Dx); ILD (interstitial lung disease) (HCC) 12/28/2024 9:23 AM CDT - 12/28/2024 11:59 PM CDT Hospital Encounter [facility] Medicine Pulmonary [address] [facility] [address] [place] [address] ILD (interstitial lung disease) (HCC) [...] ( no surgery this time) CATARACT EXTRACTION [id number] Medical History Medical History Date Comments Hypertension [...] on file Legal Sex Female 12:10 PM [employer]IAN Gender Identity Female 06/06/2023 3:22 PM [employer]IMAL V[employer]ERINARIAN Sexual Orientation Not on file Obstetrics History [...] AM CDT) FVC PRE 2.15 L [facility] FVC %PRE PRED 86 % [facility] FEV1 PRE 1.75 L [facility] FEV1 %PRE PRED 92 % [facility] FEV1/FVC PRE 81.3 % [facility] Anatomical Region Laterality Modality PFT 12/28/2024 9:29 AM CDT Narrative 12/28/2024 3:11 PM CDT Table formatting from the original result was not included. [facility] Division of Pulmonary & Critical Care Medicine [address] [place] [address]; [facility] [address] [facility]; [place] [address]; [phone] Pulmonary Function Laboratory Pulmonary Stress Test Simple/Oxygen [...] Work [distance (m) x body wt (kg)]: 99835 kg.m (normal >60,000kg.m) Oxygen required to maintain [...] with the written final report. PFT performed at:->[facility] Adult PFT Lab- [facility]-8D Procedure:->Spirometry Procedure:->Oxygen [...] and %HbO2 is age dependent. However, the [facility] Pulmonary Function Laboratory defines hypoxemia as a PaO2 <56 mm Hg or a %HbO2 <89%. Starting on April of 2024 the [facility] Pulmonary Function Laboratory utilizes race neutral GLI Global normative equations. Rajesh Mesa MD PFT ORDERABLES Final Result from Last 3 Months Insurance [employer] MEDICARE [facility] Address: [address] [address] [place] [address] [employer] MEDICARE [facility] MEDICARE Care Teams Italian Tutor Relationship Specialty Start Date End Date Tania Davis PA PCP - General Physician Lathe Mechanic 02/08/18
[2025-01-28 08:40] LABS: Alanine Aminotransferase 34 U/L (6-35); Albumin Level 4.1 g/dL (3.5-5.1); Alkaline Phosphatase 144 U/L (38-126); Anion Gap 9 mmol/L (4-12); Aspartate Amino Transferase 47 U/L (14-36); Bilirubin,Total 0.5 mg/dL (0.2-1.3); Blood Urea Nitrogen 34 mg/dL (7-17); Calcium 9.2 mg/dL (8.4-10.2); Carbon Dioxide 26 mmol/L (22-30); Chloride 103 mmol/L (98-107); Estimated Glomerular Filt Rate 54; Glucose 79 mg/dL (65-110); Magnesium 2.4 mg/dL (1.6-2.3); Potassium 4.3 mmol/L (3.4-5.0); Sodium 138 mmol/L (137-145); Total Protein 7.8 g/dL (6.3-8.2)
[2025-01-28 08:48] LABS: Parathyroid Intact 50.7 pg/mL (14.5-75.2)
[2025-01-28 09:16] LABS: Thyroid Stimulating Hormone 2.380 uIU/mL (0.465-4.680)
== END 2025-01-28 06:55 | disposition home or self-care (01) ==
PROVIDERS: PCP Physician Assistant
DX: M81.0 Age-related osteoporosis without current pathological fracture (principal); M97.8XXD Periprosthetic fracture around other internal prosthetic joint, subsequent encounter; Z96.649 Presence of unspecified artificial hip joint; E03.9 Hypothyroidism, unspecified
CPT/HCPCS: 36415; 80053; 82306; 83735; 83970; 84100; 84443

== ENCOUNTER 2025-02-14 07:20 | Outpatient (CLI) | payer MEDICARE, SELFPAY ==
[2025-02-14 09:27] LABS: Alanine Aminotransferase 33 U/L (6-35); Albumin Level 4.3 g/dL (3.5-5.1); Alkaline Phosphatase 119 U/L (38-126); Anion Gap 8 mmol/L (4-12); Aspartate Amino Transferase 43 U/L (14-36); Bilirubin,Total 0.5 mg/dL (0.2-1.3); Blood Urea Nitrogen 30 mg/dL (7-17); Calcium 9.2 mg/dL (8.4-10.2); Carbon Dioxide 28 mmol/L (22-30); Chloride 104 mmol/L (98-107); Estimated Glomerular Filt Rate 53; Glucose 78 mg/dL (65-110); Potassium 4.0 mmol/L (3.4-5.0); Sodium 140 mmol/L (137-145); Total Protein 7.9 g/dL (6.3-8.2)
--- OUTSIDE RECORDS SUMMARY | 2025-02-14 16:26 | XMS_ITS | Data Portability ---
Author Organization [facility] [place] Address [address] [place] [address] Care Team Providers Care Forest Patrolman Name Role Phone SYDNEY PALMER Primary Care [...] TSH + free T4, serum 04/17/2 026 [facility], [address], [address], 11/21/2024 15:59:30 CBC w/ auto diff [address] [facility], [address] [place] [address], [id number], 11/21/2024 15:59:30 hepatic function panel, serum [address] [facility], [address] [place] [address], [id number], 11/21/2024 15:59:30 BMP, serum or plasma [address] [facility], [address] [place] [address], [address], 11/21/2024 15:59:30 vitamin B12 + folate, serum or blood [address] [facility], [address] [place] [address], [address], 11/21/2024 15:59:30 lipid panel, serum [address] [facility], [address] [place] [address], [address], 11/21/2024 15:59:30 CBC w/ auto diff 2024 025 [facility], [address] [place] [address], [address], 10/15/2024 09:40:08 hepatic function panel, serum [address] [facility], [address] [place] [address], [address], 10/18/2024 15:03:18 BMP, serum or plasma 2024 025 [facility], [address] [place] [address], [address], 10/15/2024 12:19:12 lipid panel, serum 2024 025 [facility], [address] [place] [address], 04[address], 10/15/2024 12:19:12 TSH + free T4, serum 2024 025 [facility], [address] [place] [address], [address], 10/15/2024 12:19:12 alkaline phosphata se isoenzyme s, serum or plasma [address] Lab, [address] [place] [address], [address], 05/09/2024 16:40:07 CBC w/ auto diff [address] [place] [address] Lab, [address] [place] [address], [address], 05/07/2024 16:01:28 hepatic function panel, serum [address] [place] [address] Lab, [address] [place] [address], 387[address], 05/07/2024 15:59:16 BMP, serum or plasma [address] [place] [address] Lab, [address] [place] [address], 7[address], 05/07/2024 16:00:01 lipid panel, serum [address] [place] [address] Lab, [address] [place] [address], [address], 05/07/2024 16:01:51 vitamin D, 25-hydrox y, total, serum [address] [place] [address] Lab, [address] [place] [address], 8[address], 05/07/2024 16:01:24 TSH + free T4, serum [address] [place] [address] Lab, [address] [place] [address], [address], 05/07/2024 16:01:00 CBC w/ auto diff 2023 024 [facility], [address] [place] [address], [address], 10/21/2023 09:51:03 hepatic function panel, serum [email or web address] [facility], [address] [place] [address], 48[address], 11/18/2023 11:53:30 BMP, serum or plasma [address] Lab, [address] [place] [address], 11569, 11/23/2023 11:35:58 vitamin B12 + folate, serum or blood 2023 024 [facility], [address] [place] [address], 07[address], 10/21/2023 12:08:24 lipid panel, serum 2023 024 [facility], [address] [place] [address], 14765, 10/21/2023 12:08:24 vitamin D, 25-hydrox y, total, serum 2023 [facility], [address] [place] [address], [address], 11/16/2023 12:09:34 TSH + free T4, serum [address] [facility], [address] [place] [address], 99[address], 11/23/2023 11:35:58 Referral None recorded. Procedures None recorded. Surgeries None recorded. Imaging US, liver - also comment on gallbladd er 2023 024 [facility] (Imaging), [address] [place], [place] [address] [address] [place] [address], [phone], 06/05/2024 15:58:33 Medication Orders triamcino lone acetonide 0.1 % topical cream 2024 025 [facility] #[id number], [address] [place], [address], 09/26/2024 14:39:56 Patient TargetsNo targets recorded. Patient Instructions Encounter Date Encounter Id Patient Instructions Last Modified By Organization Details Last Modified Time 09/26/2024 [id number] A healthy lifestyle: care instructions Not available 09/26/2024 14:37:06 11/21/2024 [id number] advance care planning: care instructions Not available 11/21/2024 15:59:30 preventing falls : care instructions Not available 11/21/2024 15:59:30 Quitting Tobacco : Care Instructions [email or web address] Not available 11/21/2024 15:59:30 Medicare [facility] Check[email or web address] Not available 11/21/2024 15:59:30 eating healthy foods: [...] of 10,00 0 indiv [facility]ual s at [place] risk for color ectal cance r [...] asymp tomat ic indiv idual s at [place] risk for color ectal cance r. [...] 112:1 016-1 030. TEST DESCR IPTIO N: Celeste site algor ithmi c arely sis of [...] years or older , who are at [facility] for color ectal cance r (CRC) . Colog uard has been appro kobe for use by the [place] FDA. The perfo rmanc e of Colog uard was estab lishe d in a cross secti onal study of [facility] adult s aged 50-84 . Colog uard [...] study of 0 indiv idual s at [facility] risk for color ectal cance r [...] found at www.pravin vo.c om. Not Available [employer] [address], [place], [address], 03/30/2024 21:21:26 11/18/19 24 11/16/2023 DEXA No observ ation record ed. [address]) [address] [facility], [place], [address], 11/18/2023 17:58:20 11/22/19 24 11/18/2023 DEXA No observ ation record ed. [address] [facility] [address], [place], [address], 04/10/2024 15:26:45 12/22/19 24 12/21/2023 MAMMO , scree blanca, digit al, bilat eral No observ ation record ed. [address], [address], 04/10/2024 15:26:41 02/23/20 24 02/23/2024 US, duple x, renal arter y No observ ation record ed. [address] [address], [place], [address], 04/10/2024 15:26:39 04/19/19 25 11/19/2022 MAMMO , scree blanca, digit al, bilat eral No observ ation record ed. BARCODE Not Available 2024 19:59:40 06/05/19 25 06/05/2024 US, liver No observ ation record ed. [address], [address], 06/06/2024 10:42:37 01/05/20 25 01/03/2025 MAMMO , scree blanca, digit al, bilat eral No observ ation record ed. [facility] [address], [place], [address], 01/04/2025 14:55:09 Result Notes None recorded. Problems Name Problem SNOMED Code Status Onset Date Resolution Date Notes Provider Name and Address Organization Details Recorded Time Hypertensive disorder 88447552 Active 2023 Concepción Aguilera null, [place] - [facility] 4 10:22:26 Hypothyroidism 04953959 Active 2023 Concepción Aguliera [place] [facility] 4 10:22:33 Gastroesophage al reflux disease 412430673 Active 2023 Concepción [place] [facility] 4 10:22:37 Hyperlipidemia 90999474 Active 2023 DORA Cristobal Attn: Marcella g,[address] [facility], [place], [address], [place] - [facility] 4 15:44:30 Body mass index 20-24 - normal 902804027 Active 2023 DORA Cristobal Attn: Zoilain g,[address] [facility], [place], [address], [place] [facility] 4 14:09:01 History of hip fracture 641100416 Active 2023 DORA Cristobal Attn: Marcella g,[address] [facility], [place], [address], [place] [facility] 4 14:09:02 Long-term drug therapy Active 2023 DORA Cristobal Attn: Zoilain g,[address] [facility], [place], [address], [place] [facility] 4 14:09:03 Gastroesophage al reflux disease without esophagitis 360253864 Active 2023 DORA Cristobal Attn: Accountharjinder g,[address] [facility], [place], [address], [place] [facility] 4 14:09:04 Benign essential hypertension 4838245 Active 2023 DORA Cristobal Attn: Marcella g,[address] [facility], [place], [address], [place] [facility] 4 14:09:06 Depressive disorder 75875199 Active 2023 DORA Cristobal Attn: Accountin g,[address] [facility], [place], [address], [place] [facility] 4 14:11:43 Body mass index less than 20 981254883 Active 2023 DORA Cristobal Attn: Accountin g,[address] [facility], [place], [address], [place] [facility] 4 15:40:20 Alkaline phosphatase above reference range 559871547 Active 2024 DORA Cristobal Attn: Accountin g,[address] [facility], [place], [address], [place] - [facility] 5 13:38:44 Normal weight 93817238 Active 2024 DORA Cristobal Attn: Marcella g,[address] [facility], [place], [address], [place] - [facility] 5 15:43:58 Problem Notes None recorded. Procedures Surgical History Date Name Laterality Status Provider Name and Address Organization Details Recorded Time 06/10/19 24 total replacement of hip completed Imelda Fisher [place] [facility] 10/05/2023 15:14:49 Eye Surgery completed Imelda Fisher MA [facility] 10/05/2023 15:45:20 Tonsillectomy completed Imelda Fisher [place] [facility] 10/05/2023 15:45:27 excision of bilateral fallopian tubes and ovaries completed Imelda Fisher [place] [facility] 10/05/2023 15:45:34 Imaging Results None recorded. Procedure Notes None recorded. Medical Equipment None Reported. Allergies Allergen ID Allergen Name Allergen Category Reaction Reaction Severity Criticality Documentation Date Start Date Code Code System Note Provider Name and Address Organization Details Recorded Time 047668 Zithromax medicatio n itching Not available Not available 10/05/2023 35334 4 RxNorm OLIVIA Smart, [facility] 4 15:08:16 696002 Substance with sulfonami de structure and antibacte rial mechanism of action (substanc e) medicatio n Not available Not available Not available 10/05/2023 15055 8003 SNOMED OLIVIA Smart, [facility] 4 15:08:22 570579 azithromy juan medicatio n itching nausea Not available Not available low 01/28/2025 42438 RxNorm Not Available [employer] - prod 16:02:47 674897 erythromy juan medicatio n itching Not available low 01/28/20252017 4053 RxNorm Not Available [employer] - prod 16:02:47 Medications Name Sig Start Date Stop Date [...] 09/26/2024 130/80 mm[Hg] DORA Cristobal Attn: Accounting,[address] [place], [address], [facility] 09/26/2024 14:37:28 Date Recorded Body height Body mass index (BMI) Body weight Oxygen saturation Oxygen saturation in Arterial blood by Pulse oximetry Heart rate Respiratory rate Systolic And Diastolic Provider Name and Address Organization Details Last Updated DateTime 5 160.02 cm 18.4 kg/m2 86408.6 1 g 98 % 98 % 74 /min 20 /min 120/78 mm[Hg] Imelda Fisher MA [facility] 5 14:13:05 Date Recorded Body weight Respiratory rate Body mass index (BMI) Body height Oxygen saturation Oxygen saturation in Arterial blood by Pulse oximetry Heart rate Systolic And Diastolic Provider Name and Address Organization Details Last Updated DateTime 4 97564.3 3 g 20 /min 20.3 kg/m2 160.02 cm 98 % 98 % 76 /min 138/82 mm[Hg] Imelda Fisher MA [facility] 4 15:21:51 Date Recorded Systolic And Diastolic Provider Name and Address Organization Details Last Updated DateTime 11/21/2024 134/80 mm[Hg] DORA Cristobal Attn: Accounting,[address] [place], [address], [facility] 11/21/2024 16:00:26 Date Recorded Body height Body mass index (BMI) Body weight Respiratory rate Oxygen saturation Oxygen saturation in Arterial blood by Pulse oximetry Heart rate Provider Name and Address Organization Details Last Updated DateTime 5 160.02 cm 20 kg/m2 93326.9 4 g 20 /min 97 % 97 % 96 /min Imelda Fisher MA [facility] 5 15:42:28 Date Recorded Systolic And Diastolic Provider Name and Address Organization Details Last Updated DateTime 03/28/2024 134/70 mm[Hg] DORA Cristobal Attn: Accounting,[address] [place], [address], [facility] 03/28/2024 14:58:04 Date Recorded Body height Body mass index (BMI) Body weight Respiratory rate Oxygen saturation Oxygen saturation in Arterial blood by Pulse oximetry Heart rate Systolic And Diastolic Provider Name and Address Organization Details Last Updated DateTime 4 160.02 cm 19.8 kg/m2 73498.3 5 g 20 /min 99 % 99 % 67 /min 136/82 mm[Hg] Imelda Fisher MA [facility] 4 14:38:29 Social History Question Answer Notes LastModified by Organizat ion Details LastModified Time Tobacco Smoking Status Never Smoker Imelda Fisher MA null, [facility] 10/05/2023 15:09:58 Do You Have An [...] Information not available 10/05/2023 What Type Of Plug Assembler Do You Use? None Information not available [...] 7 Days, How Much Pain Have You [place]? Some Information not available 11/21/2024 In General, [...] Past 7 Days, How Often Have You [place] Sleepy In The Daytime? Sometimes Information not available 11/21/2024 On They Days When You Drank Alcohol, How Often Did You Have 4 Or More Drinks At A Time? Never Information no t available 11/21/2024 # Alcohol Drinks Per Week 0 Information not available 11/21/2024 Do You Have A Medical Power Of Forestry Biology Specialist? No Information not available 11/21/2024 What Was [...] Do You Participate In Social Media? Yes Cribspot Information not available 11/21/2024 What Types Of [...] anxious, or unable to sleep at night)? [id number] Information not available 11/21/2024 Family History Relationship [...] Atrial Fibrillation N High Blood Pressure Y Kidney or Bladder Problems Y Thyroid Problems N GI Problems N Depression Y COPD N Blood Clots N Skin Problems N Anemia N Heart Attack (OR) N Anxiety Disorder Y Diabetes N Muscle, [...] Influenza, split virus, quadrivalent, preservative 9 completed Imelda [place] [facility] 03/27/2024 15:07:16 Influenza, MDCK, quadrivalent, PF 0 completed Imel[place] [facility] 03/27/2024 15:07:16 zoster recombinant 4 completed Imelda [place] [facility] 03/27/2024 15:07:16 Influenza, high-dose, [...] [facility] 03/27/2024 15:07:16 Pneumococcal conjugate PCV20, polysaccharide [id number] conjugate, adjuvant, PF 4 completed OLIVIA Smart, [...] Influenza, split virus, trivalent, preservative 7 completed Imelda [place] [facility] 03/27/2024 15:07:16 Influenza, split virus, trivalent, PF 6 completed Imel[place] [facility] 03/27/2024 15:07:16 Influenza, split virus, trivalent, PF 5 completed Imel[place] [facility] 03/27/2024 15:07:16 Influenza, split virus, quadrivalent, PF 8 completed Imel[place] [facility] 03/27/2024 15:07:16 Influenza, split virus, quadrivalent, PF 2 completed [place] [facility] 03/27/2024 15:07:16 Influenza, split virus, quadrivalent, PF 1 completed [place]IVIA Smart[place] [facility] 03/27/2024 15:07:16 COVID-19, mRNA, LNP-S, PF, 50 mcg/0.5 mL 4 completed Not Available [facility] 11/21/2024 15:19:30 zoster recombinant 4 completed Not Available [facility] 11/21/2024 15:19:30 Influenza, high-dose, trivalent, PF 4 completed Not Available [facility] 11/21/2024 15:19:30 Past Encounters Encounter ID Performer Location Encounter Start Date Encounter Closed Date Diagnosis/Indication Diagnosis SNOMED-CT Code Diagnosis ICD10 Code Diagnosis IMO Codes Diagnosis Note [id number] Lupillo Ravi MD [facility] - [place] [facility] [address] [place] [address] 10/05/2023 15:01:02 10/05/2023 16:14:07 Hypothyroidism 78948803 E03.9 Patient is due for updated thyroid function labs, she is taking levothyrox ine 75 mcg daily Benign ess ential hypertension 2604036 I10 Blood pressure is 138/82 today. The patient is stable on amlodipine 10 mg daily Long-term drug therapy 881891643 Z79.899 All routine labs were ordered today Gastroesop hageal reflux disease without esophagitis 249747732 K21.9 Patient is stable on pantoprazo le 40 mg daily with no symptom issue of breakthrou gh History of hip fracture 690972677 Z87.81 Patient has history of repeat fracture of the hip, vitamin-D lab is ordered. She is up-to-date on DEXA scan. Hyperlipidemia 77839084 E78.5 Patient is due for updated fasting lipid panel. She is taking atorvastat in 1 mg daily from specialist Body mass index 20-24 - normal 323746875 Z68.20 Depressive disorder 3543 9007 F32.A Patient is stable on fluoxetine 20 mg daily and Wellbutrin XL 150 mg daily [id number] Lupillo Ravi MD [facility] [address] [facility] [address] [place] [address] 03/28/2024 14:08:02 03/28/2024 15:56:53 Benign essential hypertension 9217535 I10 Blood pressure is 134/70 today. The patient is stable on amlodipine 5 mg daily Hypothyroidism 43660370 E03.9 Patient is due for updated thyroid function labs, she is taking levothyrox ine 75 mcg daily Hyperlipidemia 95218324 E78.5 Patient is due for updated fasting lipid panel. She is taking pitavastat in 1 mg daily from specialist Depressive disorder 3547 9007 F32.A Patient is stable on fluoxetine 20 mg daily and Wellbutrin XL 150 mg daily Gastroesop hageal reflux disease without esophagitis 849270135 K21.9 Patient is stable on pantoprazo le 40 mg daily with no symptom issue of breakthrou gh Long-term drug therapy 048064862 Z79.899 All routine labs were ordered today to complete in April History of hip fracture 893197049 Z87.81 Patient has history of repeat fracture of the hip, vitamin-D lab is ordered. She is up-to-date on DEXA scan. Alkaline p hosphatase above reference range 295630754 R74.8 Check ultrasound of the liver and alk-phos isoenzymes for noted alkaline phosphatas e of 174 on previous labs Body mass index less than 20 153898824 Z68.1 BMI is 19.8 [id number] Lupillo Ravi MD [facility] [place] [address] [place] [address] 09/26/2024 14:01:14 09/26/2024 14:52:48 Body mass index less than 20 437912535 Z68.1 482076 BMI is 18.4. Patient has lost some weight and we will continue to monitor this labs are due again in October Benign ess ential hypertension 5465481 I10 Blood pressure is 130/80. The patient is stable on amlodipine 5 mg daily Hypothyroidism 68074017 E03.9 Patient is due for updated thyroid function labs, she is taking levothyrox ine 75 mcg daily Hyperlipidemia 00298283 E78.5 Patient is due for updated fasting lipid panel. She is taking pitavastat in 1 mg daily and Zetia 10 mg daily from specialist Depressive disorder 7903 9007 F32.A Patient is stable on fluoxetine 20 mg daily and Wellbutrin XL 150 mg daily Gastroesop hageal reflux disease without esophagitis 961915668 K21.9 Patient is stable on pantoprazo le 40 mg daily with no symptom issue of breakthrou gh Long-term drug therapy 366059692 Z79.899 CBC liver and kidney panels due in October History of hip fracture 253630478 Z87.81 Patient has history of repeat fracture of the hip, vitamin-D lab is ordered. She is up-to-date on DEXA scan. Alkaline p hosphatase above reference range 961262922 R74.8 Alkaline phosphatas e isoenzymes and liver ultrasound stable Irritant c ontact dermatitis 450591336 L24.9 98754731 Refill on steroid cream to use on the dermatitis patch on her right cheek area unknown cause [id number] Lupillo Ravi MD [facility] [place] [address] [place] [address] 11/21/2024 15:18:25 11/27/2024 15:33:33 Adult health examination 411899672 Z00.00 Health Risk Assessment collected and reviewed History an d physical examination, annual for health maintenance 13119395 Z00.00 [id number] Health Risk Assessment collected and reviewed Normal weight 25903164 Z 68.20 7395774108 Benign ess ential hypertension 8914765 I10 Blood pressure is 130/80. The patient is stable on amlodipine 5 mg daily Hyperlipidemia 99715553 E78.5 Patient is due for updated fasting lipid panel. She is taking pitavastat in 1 mg daily and Zetia 10 mg daily from specialist Depressive disorder 5460 8209 F32.A Patient is stable on fluoxetine 20 mg daily and Wellbutrin XL 150 mg daily Gastroesop hageal reflux disease without esophagitis 240001440 K21.9 Patient is stable on pantoprazo le 40 mg daily with no symptom issue of breakthrou gh Acquired hypothyroidism 502814645 E03.9 95116 Patient is due for updated thyroid function labs, she is taking levothyrox ine 75 mcg daily Long-term current use of drug therapy 682041709 Z79.899 [id number] Health Concerns Section Related Observation LastModified by Organization Detai ls LastModified Time None Recorded Concern Status LastModified by Organization Details LastModified Time None Recorded Advance Directives Directive Y: Payers Insurance Date Sequence Insurance Name Policy Number Policy Contreras Covered Member ID Contreras Member ID Guarantor Name 12/11/2024 1 [employer] (MEDICARE REPLACEMENT/ ADVANTAGE - PPO) [id number] Mercedes Morfin [id number] Mercedes Morfin 09/26/2024 1 [employer] (MEDICARE REPLACEMENT/ ADVANTAGE - PPO) Mercedes Morfin [id number] Mercedes Morfin Notes Date Note Type Note Provider Name and Address Organization Details Recorded Time 4 text/html HypertensionReported by PatientHPIFor duration, patient reportshas noted for years. For onset/timing, patient reportsbetter. For alleviating factors, patient reportsmedication. Anxiety/DepressionReporte d by Patientstable on wellbutrin XL 150mg daily and fluoxetine 20mg daily. ThyroidReported by PatientHPIFor context, patient reportshistory of hypothyroidism. For quality, patient reportsnot changing. For duration, patient reportsconstant. For onset/timing, patient reportsstill present. Reflux/GERDReported by PatientHPIFor duration, patient reportspresent 5 or more years.stable on pantoprazole 40mg daily. DORA Cristobal Attn: Accounting,[address] [facility], [place], [address], [facility] 10/16/2023 14:12:18 4 text/html HypertensionReported by PatientHPIFor [...] 40mg daily. DORA Cristobal Attn: Accounting,[address] [place], [address], [facility] 04/10/2024 15:41:06 5 text/html HypertensionReported by PatientHPIFor [...] and strengthening. DORA Cristobal Attn: Accounting,[address] [place], [address], [facility] 10/08/2024 13:39:36 5 text/html MAW 2Reported by [...] the home. DORA Cristobal Attn: Accounting,[address] [facility], [place], [address], [facility] 12/09/2024 18:03:00 OBGyn Episode No OBEpisode recorded.
--- OUTSIDE RECORDS SUMMARY | 2025-02-14 16:26 | XMS_ITS | Patient Health Record ---
Author Organization [facility] santi Address [address] [facility] [address] [place] [address] Support Name Relationship Address Phone Mercedes Morfin Guarantor Unknown [phone] Reason For Referral No Information Medications Medication SIG (Take, Route, Frequency, Duration) Notes Start Date End Date Status Ocuvite Adult 50+ per eye doctor Oral 08/27/2010 Active Biotin Maximum Strength 44253 MCG 1 qd Oral Active Aspirin 81 MG 1 Every Day Oral 10/11/2005 Active Caltrate 600mg once daily in addition to other calcium *Reorder from [id number] for eRx and Interaction Alerts* 08/27/2010 Active Centrum Silver 1 Every Day Oral 10/11/2005 Active Immunizations Vaccine Route Administration Date Status Comme nts Infuenza, trivalent, recombinant, preservative free Unknown 12/29/2009 Administered migrated LegPatid= [id number] Date=02/17/1999 Vac= Influenza Infuenza, trivalent, recombinant, preservative free Unknown 02/08/2013 [address]ered [facility] [phone] Infuenza, trivalent, recombinant, preservative free Unknown 01/12/2014 Administered wal Infuenza, trivalent, recombinant, preservative free Unknown 01/02/2015 Administered [facility] [phone] Pneumococcal conjugate PCV 13 Unknown 01/09/2010 Administered migrated LegPatid= [id number] Date=01/09/2010 Vac= pneumococcal Pneumococcal conjugate PCV 13 IM Intramuscular 03/25/2014 Administered Pneumococcal conjugate PCV 13 IM Intramuscular 03/26/2015 Administered Tdap Unknown 09/29/2006 Administered migrated LegPatid= [id number] Date=09/29/2006 Vac= Tdap Problems Problem Type SNOMED Code ICD Code Onset Dates Problem Status W/U Status Risk Notes Problem Pathological fractur e of vertebra (disorder) (754452481) 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 Getting EDWARD, sees plans examiner for osteopenia and saw pain management Problem Major depression, single episode (57330521) Major depressive disorder, single episode, unspecified (F32.9) Active confirmed 03/23/2013 - Dr Gonzalez is moving sees Dr Gonzalez, on wellbutrin/p rozac Problem Allergic rhinitis (65940412) Allergic rhinitis, unspecified (J30.9) 2005 Active confirmed all year, Zyrte Problem Gastro-esophageal reflux disease with esophagitis (065532404) Gastro-esophag eal reflux disease with esophagitis (K21.0) 2011 Active confirmed 02/16/2012 on omeprazole, Step down to Zantac (osteopenia) Problem Low back pain (871625111) Low back pain (M54.5) 2005 Active confirmed Problem Disorder of bone (64211720) Other specified disorders of bone density and structure, unspecified site (M85.80) 2006 Active confirmed compression fracture L2-3 11/2011, took Fosamax 5-10 yrs per plans examiner, Off in 2009 Problem Chronic kidney disease stage 3 (disorder) (945689457) Chronic kidney disease, stage 3 (moderate) (N18.3) Active confirmed ., no renal US yet Problem SI - Stress incontinence (91922077) Stress incontinence (female) (male) (N39.3) 2005 Active confirmed urge incontinence , meds caused dry mouth, per urologist Problem Palpitations (73152573) Palpitations (R00.2) 2005 Active confirmed resolved Problem Amnesia (04805856) Other amnesia (R41.3) 2014 Active confirmed Problem Elevated levels of transaminase & lactic acid dehydrogenase (018692279) Nonspecific elevation of levels of transaminase and lactic acid dehydrogenase [LDH] (R74.0) Active confirmed ast alt 36/41 Problem Pure hypercholesterolemia (630476111) Pure hypercholester olemia, unspecified (E78.00) Active confirmed 09/15/2012 - 93/50/60 no meds red yeast rice 02/21/2012 - 187/50/72, none, Diet, etc, consider medication Plan Of Treatment No Information Insurance Providers Payer Name Payer Address Payer Phone Subscriber Number Group Number Insured Name Patient Relationship to Insured Coverage Start Date Coverage End Date DO NOT USE - [employer] [address] [address] [place], [place] [id number] Mercedes Morfin Self - patient is the insured 4 [employer] [place] [address] [place] [address] [id number] Mercedes Morfin Self - patient is the insured 2 [place] [employer] [address] [place], [place] [phone] [id number] Mercedes Morfin Self - patient is the insured 2 Medical (General) History Surgical History Surgery Date(Month/Year) T&A: as a child; 2012-02-16 Tubal ligation: laparoscopic by cautery; 2012-02-16
--- OUTSIDE RECORDS SUMMARY | 2025-02-14 16:26 | XMS_ITS | Encounter Summary ---
Author Organization [facility] Address [address] [place] [address] Care Team Providers Care Concrete Pump Operator Helper Name Role Phone Patricia Vaca Primary Care Prov ider Unavailable Tania Moreau Primary Care Pr ovider Tania Moreau Primary Care Pr ovider Encounter Details Date Type Department Care Team (Late Contact Info) Description 02/02/2022 Telephone [facility] Rheumatology - Third Level [address] [place] [address], [place] [address] Primo Yanez MD [address] [place] [address] [place] [phone] Social History Tobacco Use Types Packs/Day Years Used Date Smoking Tobacco: Never Assessed Comments Unknown Sex and Gender Information Value Date Recorded Sex Assigned at Not on file Legal Sex Female 1:40 PM CDT Gender Identity Not on file Sexual Orientation Not on file documented as of this encounter Plan of Treatment Upcoming Encounters Date Type Department Care Team (Late Contact Info) Description 02/28/2025 11:50 AM TECHNICIAN TEST SYSTEMS Office Visit [facility] - Orthopedic Surgery [address] [place] [phone] Joy Lauren APRN-CNP [address] [place] [address] 09/11/2025 1:30 PM CDT Office Visit [facility] - Orthopedic Surgery [address] [place] [address] Braxton Wilkins MD [address] [place] [address] 10/31/2025 12:40 PM CDT Office Visit [facility] Medical Group - Rheumatology [address] [facility], [address] [place] [address] Caden Rodriguez DO [address] [place] [address] documented as of this encounter Visit Diagnoses Not on filedocumented in this encounter Additional Health Concerns Infection Onset Date Last Indicated Resolved Time COVID-19 Under Investigation 06/29/2023 06/29/2023 06/29/2023 5:02 PM CDT documented as of this encounter Care Teams Concrete Pump Operator Helper Relationship Specialty Start Date End Date Patricia Vaca APRN-COLLEEN Update Information PCP - General 02/01/22 02/24/22 Tania Moreau PA [address] [place] [phone] PCP - General Physician Automatic Trimming Sewer 02/25/22 05/20/22 Tania Moreau PA [address] [place] [phone] PCP - General Physician Automatic Trimming Sewer 11/03/23 documented as of this encounter
--- OUTSIDE RECORDS SUMMARY | 2025-02-14 16:26 | XMS_ITS | Clinical Summary ---
Author Organization [facility] Nintu Oy Address [address] [facility] [place] [address] Care Team Providers Care Patient Admitting Representative Name Role Phone Tania Moreau Primary Care Pr ovider Source Comments [facility],non-owned Affiliates and Associated Physician Practices is amultiple site organization consisting of ambulatory clinics and hospital sitesin [place], [place], [place] and [place]. This disclosure is being madepursuant to the Care Everywhere program and may not contain all information available regarding this patient. Last updated 17.[facility] Nintu Oy Allergies Active Allergy Reactions Criticality Noted Date [...] future fracture risk and will refer to [facility] Health clinic for consultation and further discussion/recommendations. Assessment & Plan (11/02/2023 11:36 AM CDT): Has experienced now 2 hip fractures (s/p Rt ROB) with most recent 06/23/2023 proximal femoral shaft fracture and need follow up DEXA for osteoporosis concerns. Edna Morfin has been encouraged to take supplemental dnhk-kfy-wdendiw (preferably calcium citrate) 4757-5960 mg and vitamin D3 1000 IU daily [...] Encounters Date Type Department Care Team Description 02/07/2025 11:50 AM CDT Office Visit [facility] Physician Group - Orthopedic Surgery [address] [place] [phone] Joy Lauren, ELECTRONIC IMAGING SYSTEM OPERATOR-ROCK SINGER Age-related osteoporosis without current pathological fracture (Primary Dx); Periprosthetic fracture of hip, subsequent encounter; Hypothyroidism, unspecified type; Elevated serum alkaline phosphatase level 02/07/2025 Travel 02/05/2025 2:53 PM CDT - 02/05/2025 11:59 PM CDT Hospital Encounter [facility] OP [address] [place] [address] Joy Lauren, ELECTRONIC IMAGING SYSTEM OPERATOR-ROCK SINGER Discharge Disposition: Home or Self Care 02/05/2025 Travel 01/28/2025 Telephone [facility] - Orthopedic Surgery [address] [place] [address] Joy Lauren, ELECTRONIC IMAGING SYSTEM OPERATOR-ROCK SINGER LABS ONLY 01/16/2025 1:00 PM CDT Office Visit [facility] Physician [facility] - Orthopedic Surgery [address] [place] [address] Joy Lauren, ELECTRONIC IMAGING SYSTEM OPERATOR-ROCK SINGER Age-related osteoporosis without current pathological fracture (Primary Dx); Periprosthetic fracture of hip, subsequent encounter; Hypothyroidism, unspecified type 01/16/2025 Travel from Last 3 Months Immunizations Immunization Administration [...] Recorded Patient Health Questionnaire-2 Score 1 10/31/2024 [facility] - Occupational Stress [...] place to sleep or slept in a mcfp (including now)? No 06/23/2023 Comments No Sex [...] Care Team (Late st Contact Info) Description 02/28/2025 11:50 AM POUND ATTENDANT Office Visit [facility]ician Group - Orthopedic Surgery [address] [place] [phone] Joy Lauren, ELECTRONIC IMAGING SYSTEM OPERATOR-[facility] [address] [place] [phone] 09/11/2025 1:30 PM CDT Office Visit [facility] Physician Group - Orthopedic Surgery [address] [place] [phone] Braxton Wilkins MD [address] [facility] [address] [place] [address] 10/31/2025 12:40 PM CDT Office Visit [facility] Medical Group - Rheumatology [address] [place] [address], [facility] [address] [place] [address] Caden Rodriguez DO [address] [facility] [address] [place] [address] Health Maintenance Due Date Last [...] 2024 , 01/28/2023, 01/20/2022, Additional history exists DEPRESSION SCREENING Completed 10/31/2024, 09/07/19 BONE DENSITY TESTING Completed 02/05/2025, 11/16/19 24 HEPATITIS B VACCINE Aged Out No [...] Comments DEXA BONE DENSITY AXIAL SKELETON Routine 02/05/2025 3:13 PM CDT Age-related osteoporosis without current pathological fracture Periprosthetic fracture of hip, subsequent encounter from Last 3 Months Results * Dexa Bone Density Axial Skeleton (02/05/2025 3:13 PM CDT) Anatomical Region Laterality Modality Bone Density 02/05/2025 3:28 PM CDT Impressions 02/05/2025 4:10 PM CDT IMPRESSION: WHO category: Osteoporosis WORLD HEALTH ORGANIZATION DEFINITIONS NORMAL= T-Score at or above -1.0 SD OSTEOPENIA = T-Score between -1 and -2.5 SD OSTEOPOROSIS = T-Score at or below -2.5 SD Trabecular Bone Score (TBS) Definitions: TBS > 1.350 : Normal TBS 1.200 - 1.350 : Partially Degraded Microarchitecture TBS < 1.200 : Degraded Microarchitecture > Dictated by Kate Ross 02/05/2025 3:28 PM > Dictated by Printing Sign Machine Operator I, Anita Montero DO have personally reviewed and interpreted this examination/study. > Interpreting Provider: Anita Montero DO on 02/05/2025 4:10 PM Narrative 02/05/2025 4:10 PM CDT PROCEDURE: DEXA BONE DENSITY AXIAL SKELETON DATE/TIME OF EXAM: 02/05/2025 3:13 PM CLINICAL INFORMATION: None relevant/not provided if blank. Indication: M81.0: Age-related osteoporosis without current pathological fracture M97.8XXD: Periprosthetic fracture of hip, subsequent encounter Z96.649: Periprosthetic fracture of hip, subsequent encounter Additional History: COMPARISON: None. INDICATION: 79 years-old for osteoporosis screening. FINDINGS: The mean bone mineral content of the lumbar spine is 0.968 g/cm2 and T-score is -0.7. The mean bone mineral content of the left femoral neck is 0.610 g/cm2 and T-score is -2.2. The mean bone mineral content of the left total hip is 0.624 g/cm2 and T-score is -2.6. FRAX 10 year fracture risk Major osteoporotic fracture: 20.0% Hip fracture: 6.0% TBS Score L1-L4 = 1.231 (partially degraded microarchitecture) Procedure Note Anita Montero DO - 02/05/2025 PROCEDURE: DEXA BONE DENSITY AXIAL SKELETON DATE/TIME OF EXAM: 02/05/2025 3:13 PM CLINICAL INFORMATION: None relevant/not provided if blank. Indication: M81.0: Age-related osteoporosis without current pathological fracture M97.8XXD: Periprosthetic fracture of hip, subsequent encounter Z96.649: Periprosthetic fracture of hip, subsequent encounter Additional History: COMPARISON: None. INDICATION: 79 years-old for osteoporosis screening. FINDINGS: The mean bone mineral content of the lumbar spine is 0.968 g/cm2 and T-score is -0.7. The mean bone mineral content of the left femoral neck is 0.610 g/cm2and T-score is -2.2. The mean bone mineral content of the left total hip is 0.624 g/cm2 and T-score is -2.6. FRAX 10 year fracture risk Major osteoporotic fracture: 20.0% Hip fracture: 6.0% TBS Score L1-L4 = 1.231 (partially degraded microarchitecture) IMPRESSION: WHO category: Osteoporosis WORLD HEALTH ORGANIZATION DEFINITIONS NORMAL= T-Score at or above -1.0 SD OSTEOPENIA = T-Score between -1 and -2.5 SD OSTEOPOROSIS = T-Score at or below -2.5 SD Trabecular Bone Score (TBS) Definitions: TBS > 1.350 : Normal TBS 1.200 - 1.350 : Partially Degraded Microarchitecture TBS < 1.200 : Degraded Microarchitecture > Dictated by Kate Ross 02/05/2025 3:28 PM > Dictated by Printing Sign Machine Operator I, Anita Montero DO have personally reviewed and interpreted this examination/study. > Interpreting Provider: Anita Montero DO on 02/05/2025 4:10 PM Joy Lauren ELECTRONIC IMAGING SYSTEM OPERATOR-ROCK SINGER DEXA ORDERABLES Final R esult from Last 3 Months Insurance AETNA AETNA MEDICARE ADV Advance Directives * Full Code (Latest Code Status on File) Date Activated Date Inactivated Comments 06/23/2023 9:07 AM 06/29/2023 8:41 PM Care Teams Patient Admitting Representative Relationship Specialty Start Date End Date Tania Moreau PA [address] [place] [phone] PCP - General Physician Surgical Instrument Maker 11/03/23
--- OUTSIDE RECORDS SUMMARY | 2025-02-14 16:26 | XMS_ITS | Encounter Summary ---
Author Organization [facility] Healthcare Address [address] [place] [address] Care Team Providers Care Mastic Worker Name Role Phone EllasimoneTania Primary Care Pr ovider Encounter Details Date Type Department Care Team (Late st Contact Info) Description 02/14/[address] [facility] Medical Group Cardiology [address] [facility] [address] [place] [address] Devon Resendez MD [address] [facility] [address] [facility] [place] [address] Social History Tobacco Use Types Packs/Day Years Used Date Smoking Tobacco: Never Smokeless Tobacco: Never Alcohol Use Standard Drinks/Week Comments Yes 0 (1 standard drink = 0.6 oz pur e alcohol) social drinker Comments Unknown Sex and Gender Information Value Date Recorded Sex Assigned at Not on file Legal Sex Female 12:10 PM SILK FOLDER Gender Identity Female 06/06/2023 3:22 PM SILK FOLDER Sexual Orientation Not on file documented as of this encounter Miscellaneous Notes * Telephone Encounter - Agnes Villegas RN - 02/14/2025 12:34 PM SILK FOLDER Spoke to Zoe, reviewed above message, she denies further questions FOLDER * Telephone Encounter - Agnes Villegas RN - 02/14/2025 11:59 AM SILK FOLDER Forwarded to DK FOLDER * Telephone Encounter - Lin Fonseca - 02/14/2025 11:55 AM CST Pt states that her bone health specialist at [facility] would like to start her on Rx evenity for osteoporosis. Pt would like to know if DK had any concerns of her being on that med from a cardiac standpoint. Please advise. Thank you. Contact [phone] FOLDER documented in this encounter Plan of Treatment Not on file documented as of this encounter Visit Diagnoses Not on filedocumented in this encounter Care Teams Mastic Worker Relationship Specialty Start Date End Date Tania Davis PA PCP - General Physician Project Construction Assistant Manager 02/08/18 documented as of this encounter
--- OUTSIDE RECORDS SUMMARY | 2025-02-14 16:26 | XMS_ITS | Clinical Summary ---
Author Organization [facility] [place] [address] Address [address] [place] [address] Care Team Providers Care Asphalt Plant Laborer Name Role Phone Ellasimone Tania JOHN Primary [...] (NORVASC) 5 mg tablet 8 Active vit C,B-Jf-fffvr-lut ein-zeaxan 029-581-19-1 vi-ejpv-oh-mg capsule Take 1 capsule by mouth daily. Active diphenhydrAMINE (BENADRYL) 25 mg capsule Take 1 tablet/capsule (25 mg total) by mouth every 6 (six) hours as needed for itching Active levothyroxine (SYNTHROID) 75 mcg tablet Take 1 tablet (75 mcg total) by mouth early childhood worker before breakfast Active calcium carbonate/vitami n D3 [...] Encounters Date Type Department Care Team Description 02/14/2025 Telephone [facility] Medical Group Cardiology [address] [facility] [address] [place] [address] Devon Resendez MD 12/28/2024 10:15 AM CDT Office Visit [facility] Medicine Pulmonary [address] [facility] 8th [place] [address] [place] [address] Rajesh Mesa MD Sjogren's syndrome with lung involvement (HCC) (Primary Dx); ILD (interstitial lung disease) (HCC) 12/28/2024 9:23 AM CDT - 12/28/2024 11:59 PM CDT Hospital Encounter [facility] Medicine Pulmonary [address] [facility] [address] [place] [address] ILD (interstitial lung disease) (HCC) [...] ( no surgery this time) CATARACT EXTRACTION [id number] Medical History Medical History Date Comments Hypertension Hypertension Hx 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 FEV1 PRE 1.[address] [facility] FEV1 %PRE PRED 92 % [facility] FEV1/FVC PRE 81.3 % [facility] Anatomical Region Laterality Modality PFT 12/28/2024 9:29 AM CDT Narrative 12/28/2024 3:11 PM CDT Table formatting from the original result was not included. [facility] Division of Pulmonary & Critical Care Medicine [address] [place] [address]; [address]; [place] [address]; [phone] Pulmonary Function Laboratory Pulmonary Stress Test Simple/Oxygen Assessment Patient: Edna Bernstein Date: 12/28/2024 : 1945 Ht: 63.5 IN [...] Work [distance (m) x body wt (kg)]: 06695 kg.m (normal >60,000kg.m) Oxygen required to maintain [...] with the written final report. PFT performed at:->[facility] Adult PFT Lab- [facility]8D Procedure:->Spirometry [...] and %HbO2 is age dependent. However, the [facility] Pulmonary Function Laboratory defines hypoxemia as a PaO2 <56 mm Hg or a %HbO2 <89%. Starting on April of 2024 the [facility] Pulmonary Function Laboratory utilizes race neutral GLI Global normative equations. Rajesh Mesa MD PFT ORDERABLES Final Result from Last 3 Months Insurance [facility] MEDIC[facility] Address: [address] [address] [place] [address] [facility] MEDICARE [facility] MEDICARE Care Teams Asphalt Plant Laborer Relationship Specialty Start Date End Date Tania Davis PA PCP - General Physician Operations Research Analyst 02/08/18
== END 2025-02-14 07:21 | disposition home or self-care (01) ==
PROVIDERS: PCP Physician Assistant
DX: M81.0 Age-related osteoporosis without current pathological fracture (principal); M97.8XXD Periprosthetic fracture around other internal prosthetic joint, subsequent encounter; Z96.649 Presence of unspecified artificial hip joint; R74.8 Abnormal levels of other serum enzymes
CPT/HCPCS: 36415; 80053